=== PATIENT | female | born 1985 | race Caucasian/White ===

== ENCOUNTER → 2020-05-04 15:51 | Outpatient (CLI) | payer OTHER, SELFPAY ==
--- NOTE | ~2020-05-04 | US_ITS ---
EXAMINATION: US thyroid DATE: 05/04/2020 16:19 INDICATION: Nontoxic single thyroid nodule. TECHNIQUE: Multiple ultrasound images of the thyroid were obtained. COMPARISON: Ultrasound 04/21/2018 FINDINGS: The right thyroid lobe measures 3.0 x 1.3 x 1.1 cm. The left thyroid lobe measures 3.3 x 1.3 x 0.7 c m. There is normal echotexture and echogenicity throughout the thyroid gland. No discrete nodules id entified. Normal vascular flow is present. IMPRESSION: 1. Normal thyroid. Reviewed, dictated and finalized at location B. RATIVE ENGRAVER IMPRESSION: 1. Normal thyroid.
== END ==
PROVIDERS: PCP Family Medicine
DX: E04.1 Nontoxic single thyroid nodule (principal)
CPT/HCPCS: 76536

== ENCOUNTER 2020-08-30 09:22 | Outpatient (CLI) | payer OTHER, SELFPAY ==
--- NOTE | 2020-08-30 10:00 | NEURO_ITS ---
Impression: # Complains of right elbow pain. # No Carpal Tunnel Syndrome or ulnar neuropathy. # Normal nerve conduction study. # Normal needle/EMG exam. # Clinical correlation recommended. Nerve Conduction Studies Anti Sensory Summary Table Stim Site NR Peak (ms) P-T Amp (?V) Site1 Site2 Delta-P (ms) Dist (cm) Vicente (m/s) Right Median Anti Sensory (2-3nd Digit) Wrist 2.8 34.7 Wrist 2-3nd Digit 2.8 14.0 50 Wrist 2.8 39.3 Wrist 2-3nd Digit 2.8 14.0 50 Right Radial Anti Sensory (Base 1st Digit) Wrist 2.1 26.4 Wrist Base 1st Digit 2.1 0.0 Right Ulnar Anti Sensory (5th Digit) Wrist 2.2 36.2 Wrist 5th Digit 2.2 14.0 64 Motor Summary Table Stim Site NR Onset (ms) O-P Amp (mV) Site1 Site2 Delta-0 (ms) Dist (cm) Vicente (m/s) Right Median Motor (Abd Poll Brev) Wrist 2.8 10.2 Elbow Wrist 4.1 26.0 63 Elbow 6.9 8.3 Right Ulnar Motor (Abd Dig Minimi) Wrist 2.2 6.1 A Elbow Wrist 4.5 28.0 62 A Elbow 6.7 4.5 F Wave Studies NR F-Lat (ms) L-R F-Lat (ms) Right Median (Mrkrs) (Abd Poll Brev) 25.79 Right Ulnar (Mrkrs) (Abd Dig Min) 24.91 EMG Side Muscle Nerve Root Ins Act Fibs Amp Dur Recrt Comment Right 1stDorInt Ulnar C8-T1 Nml Nml Nml Nml Nml Right Ext Indicis Radial (Post Int) C7-8 Nml Nml Nml Nml Nml Right Ext Digitorum Radial (Post Int) C7-8 Nml Nml Nml Nml Nml Right BrachioRad Radial C5-6 Nml Nml Nml Nml Nml Right PronatorTeres Median C6-7 Nml Nml Nml Nml Nml Right Abd Poll Brev Median C8-T1 Nml Nml Nml Nml Nml Right ABD Dig Min Ulnar C8-T1 Nml Nml Nml Nml Nml MTDD
== END 2020-08-30 09:23 | disposition home or self-care (01) ==
PROVIDERS: PCP Physician Assistant; Visit Provider Physician Assistant
DX: G56.01 Carpal tunnel syndrome, right upper limb (principal)
CPT/HCPCS: 95886; 95909

== ENCOUNTER → 2022-12-18 08:38 | Outpatient (CLI) | payer OTHER, SELFPAY ==
--- NOTE | ~2022-12-18 | US_ITS ---
Limited Abdominal Sonogram: Real-time sonographic imaging of the right upper quadrant was performed. Clinical History: Abnormal liver enzymes Findings: The liver appears mildly echogenic/heterogeneous, with no evidence of mass lesion or bile duct dilatation. Liver contour is mildly nodular. Main portal vein demonstrates normal direction of f low. The gallbladder is well distended, and appears normal with no evidence of gallstone or wall thic kening. The common bile duct measures 4 mm. The visualized pancreas, aorta, and IVC are unremarkable . Impression: Heterogeneous hepatic echo texture with mildly nodular contour. Findings suggest cirrhotic change alejandro olga fatty infiltration. Correlate clinically. Reviewed, dictated and finalized at location . Impression: Heterogeneous hepatic echo texture with mildly nodular contour. Findings sugges t cirrhotic change versus fatty infiltration. Correlate clinically.
== END ==
PROVIDERS: PCP Family Medicine; Visit Provider Internal Medicine Endocrinology, Diabetes & Metabolism
DX: R74.01 Elevation of levels of liver transaminase levels (principal)
CPT/HCPCS: 76705

== ENCOUNTER 2023-06-16 07:41 | Outpatient (CLI) | payer OTHER, SELFPAY ==
--- NOTE | ~2023-06-16 | CT_ITS ---
CT of the Abdomen and Pelvis: Indication: Abnormal findings on diagnostic imaging of the liver and biliary tract Technique: 2.5 mm axial scans were obtained through the abdomen and pelvis following intravenous adm inistration of 100 cc of Omnipaque 350. Dose reduction technique was used on this scan by utilizing a utomated exposure control and iterative reconstruction technique. The dose-length product (DLP) was 1 100.43 mGy-cm. Findings: Scans through the lung bases are unremarkable. There is diffuse fatty infiltration of liver. The spleen, pancreas, gallbladder, adrenals and kidneys are within normal limits. No evidence of aortic aneurysm. No lymphadenopathy. No bowel obstruction or bowel wall thickening. There is no evidence to suggest acute appendicitis. Sm all fat-containing umbilical hernia noted. Images through the pelvis were performed. Urinary bladder unremarkable. IUD in place. No adnexal mass evident. No ascites. Impression: Diffuse fatty infiltration of the liver. IUD in place. Reviewed, dictated and finalized at [facility]. N SERVICE WORKER Impression: Diffuse fatty infiltration of the liver. IUD in place.
== END 2023-06-16 07:42 | disposition home or self-care (01) ==
PROVIDERS: PCP Family Medicine; Visit Provider Physician Assistant
DX: K76.0 Fatty (change of) liver, not elsewhere classified (principal)
CPT/HCPCS: 74177; Q9967

== ENCOUNTER 2023-07-17 12:47 | Emergency (ER) | payer OTHER, SELFPAY ==
[2023-07-17 13:03] VITALS: BP 130/87; PULSE 127; RESP 18; TEMP 38; O2SAT 100
--- NOTE | 2023-07-17 13:04 | ED.URI ---
HPI - URI/Sore Throat General Chief Complaint: Upper Respiratory Infection Stated Complaint: lower back pain, sorethroat Time Seen by Provider: 07/17/23 12:55 Source: patient Mode of arrival: ambulatory Limitations: no limitations History of Present Illness HPI Narrative: Patient is a 38-year-old female who presents with right low back pain radiating to buttocks that started yesterday. States she has old soccer injuries that flare up causing pain. Patient has been taking her muscle relaxer, Tylenol and ibuprofen with no relief. Patient was recently on steroids and Augmentin a week ago. Patient states they normally give her steroid injection but can not get in to PCP office till Friday. Patient states today she woke up with fever and scratchy throat. Patient states last injection was over year ago and is not into spine but into buttocks. Patient had abdominal CT the end of May along with HIDA scan for gallbladder issues. Related Data Home Medications Medication Instructions Recorded Confirmed levonorgestrel 21 mcg/24 hours (8 1 device intrauterine ONCE 05/21/22 07/17/23 yrs) 52 mg intrauterine device (Mirena) levothyroxine 100 mcg tablet 100 mcg PO DAILY 05/23/23 07/17/23 (Synthroid) cyclobenzaprine 10 mg tablet 10 mg PO BID muscle spasm 07/17/23 07/17/23 eletriptan 40 mg tablet mg 07/17/23 Allergies Allergy/AdvReac Type Severity Reaction Status Date / Time azithromycin AdvReac Severe Abdominal Verified 07/17/23 14:40 Pain Review of Systems Review of Systems: All systems reviewed & are unremarkable except as noted in HPI and below Constitutional: Constitutional: Denies body ache(s), Denies chills, Denies fatigue, Reports fever(s), Denies headache(s), Denies malaise and Denies weakness Eyes: Eyes: Denies blurry vision, Denies itchy eyes and Denies loss of vision ENT: Denies otalgia, Denies headache(s), Denies nasal congestion, Denies sinus pain and Reports sore throat Cardiovascular: Cardiovascular: Denies chest pain, Denies irregular heart rhythm and Denies dyspnea Respiratory: Respiratory: Denies cough and Denies dyspnea Gastrointestinal: Gastrointestinal: Denies abdominal pain, Denies diarrhea, Denies nausea and Denies vomiting Musculoskeletal: Musculoskeletal: Reports back pain, Denies myalgias and Denies arthralgias Integumentary/Breasts: Skin/Breast: Denies pruritus and Denies rash Neurologic: Denies headache(s), Denies loss of vision and Denies weakness Psychiatric: Psychiatric: Reports no additional psychiatric complaints Endocrine: Endocrine: Denies fatigue Allergic/Immunologic: Allergic/Immunologic: Denies itchy eyes PMFSH Past Medical History Medical History Allergic rhinitis Alopecia KELLI (generalized anxiety disorder) Headache Hyperlipidemia Hypothyroidism determined by thyroid function test Migraines Surgical History Surgical History H/O lateral meniscus repair of left knee History of ankle surgery Family History Family History Other Diabetes mellitus Family history of thyroid disease Social History Social History Smoking status: Never smoker Second hand tobacco smoke exposure: No Alcohol intake: current Alcohol use details: socially; twice monthly Substance use: never Substance use type: does not use Lack of Transportation: No Lack of Food: Never True Current Housing: I Have Housing Concerned About Future Housing: No Difficulty Paying Gas/Electric Bills: No Difficulty Paying for Meds: No Currently Unemployed: No Education: Master's Degree or Higher Difficulty w/ Childcare or Family Care: No Living arrangements: with family Occupation/Education: occupation Additional occu
[2023-07-17 13:07] VITALS: BP 130/87; PULSE 127; RESP 18; TEMP 38; O2SAT 100
== END 2023-07-17 14:25 | disposition short-term general hospital (02) ==
PROVIDERS: Emergency Provider Nurse Practitioner Family; PCP Family Medicine
DX: R00.0 Tachycardia, unspecified (principal); M54.41 Lumbago with sciatica, right side; R50.9 Fever, unspecified; E78.5 Hyperlipidemia, unspecified; E03.9 Hypothyroidism, unspecified; Z79.899 Other long term (current) drug therapy; Z20.822 Contact with and (suspected) exposure to COVID-19
CPT/HCPCS: 81003; 87081; 87086; 87426; 87804; 87880; 99213; G0463

== ENCOUNTER 2023-07-17 14:39 | Emergency (ER) | payer OTHER, SELFPAY ==
[2023-07-17] VITALS (9 sets, daily range): BP systolic 111–128; BP diastolic 73–84; PULSE 97–132; RESP 12–20; TEMP 37.7; O2SAT 97–100
--- NOTE | ~2023-07-17 | XR_ITS ---
EXAMINATION: XR chest 2V DATE: 07/17/2023 16:40 INDICATION: Shortness of breath TECHNIQUE: PA and lateral views of the chest are obtained. COMPARISON: None available FINDINGS: The lungs are free of acute opacities. No pleural effusion or pneumothorax. The cardiomedia stinal silhouette is normal. There is mild thoracic spondylosis. IMPRESSION: 1. No acute cardiopulmonary abnormality. Reviewed, dictated and finalized at location L. ITY IMPROVEMENT COORDINATOR
[2023-07-17 16:20] LABS: Appearance Urine Clear (Clear); Bacteria Urine None Seen /hpf; Bilirubin Urine Negative (Negative); Blood Urine Negative (Negative); Color Urine Yellow (Yellow); Glucose Urine UA Negative (Negative); Ketones Urine Negative (Negative); Leukocyte Esterase Ur 1+ LEU/UL (Negative); Need Manual Microscopic Reviewed; Nitrate Urine Negative (Negative); Non Pathogenic Casts 0-2; Protein Urine Negative (Negative); RBC Urine 0-2 /hpf (0-2); Specific Grav Ur 1.003 (1.001-1.035); Squamous Epithelial Cell Urine Occasional /hpf (Few); Urobilinogen Urine 0.2 mg/dL (<2.0); pH Urine 6.5 (5.0-9.0)
[2023-07-17 16:28] LABS: Basophils Percent Auto 0.4 % (0.2-1.2); Eosinophils Percent Auto 0.6 % (0-4.4); Hemoglobin 14.3 g/dL (12.0-15.0); Immature Granulocyte Absolute 0.05 K/mm3 (0.00-0.031); Immature Granulocyte Percent A 0.7 % (0-0.5); Lymphocytes Absolute Auto 0.48 K/mm3 (0.9-3.2); Lymphocytes Percent Auto 7.2 % (18.3-44.2); Mean Corpuscular HGB Conc 32.5 g/dl (32-36); Mean Corpuscular Volume 89.2 fl (80-100); Mean Platelet Volume 10.5 fl (7.4-10.4); Monocytes Absolute Auto 0.9 K/mm3 (0.1-0.6); Monocytes Percent Auto 13.9 % (2.6-8.5); Neutrophils Absolute Auto 5.2 K/mm3 (1.3-6.7); Neutrophils Percent Auto 77.2 % (45.5-73.1); Platelet Count Result 307 k/mm3 (150-375); Red Blood Count 4.93 M/mm3 (4.2-5.4); Red Cell Distribution Width 13.9 % (11.5-14.5); White Blood Count 6.7 K/mm3 (4.5-10.0)
[2023-07-17] MEDS: ACETAMINOPHEN 500 MG TABLET 1000 MG PO (16:29)
[2023-07-17] MEDS: MORPHINE SULFATE (*CRX) 4 MG/ML INJ IV PUSH (16:29)
[2023-07-17 16:32] LABS: Add Urine Microscopic? YES
[2023-07-17 16:36] LABS: Lactic Acid Reflex 1.1 mmol/L (0.7-2.0)
[2023-07-17 16:39] LABS: Alanine Aminotransferase 46 U/L (6-35); Albumin Level 4.8 g/dL (3.5-5.1); Alkaline Phosphatase 67 U/L (38-126); Anion Gap 10 mmol/L (8-16); Aspartate Amino Transferase 38 U/L (14-36); Bilirubin,Total 0.6 mg/dL (0.2-1.3); Blood Urea Nitrogen 7 mg/dL (7-17); Calcium 9.6 mg/dL (8.4-10.2); Carbon Dioxide 23 mmol/L (22-30); Chloride 102 mmol/L (98-107); Estimated CRCL calculation 94 ml/min; Estimated Glomerular Filt Rate > 60; Glucose 90 mg/dL (65-110); Potassium 3.6 mmol/L (3.4-5.0); Sodium 135 mmol/L (137-145)
[2023-07-17 16:43] LABS: INR 0.9; Partial Thromboplastin Time 24.5 SECONDS (22.3-36.8); Prothrombin Time 12.3 Seconds (11.1-14.7)
--- NOTE | 2023-07-17 16:59 | ED.GENADULT ---
HPI - General Adult General Chief complaint: Fever Stated complaint: back pain, temperature Time Seen by Provider: 07/17/23 15:54 History of Present Illness HPI narrative: Patient is a 38-year-old female who presents ER with back pain and fever. Back pain ongoing over last couple of days. Has history of an old injury from when she played soccer where she has an irritated disc that will occasionally cause pain. This has been increasing discomfort last couple days. Today she started having fevers. She had a rapid COVID and flu test performed urgent care but it was negative. Due to her fever back pain she was referred here for more definitive workup. Patient has known gallbladder issues with an EF of 17%. She has mild abdominal discomfort. No urinary frequency urgency or dysuria. No pain in the right upper quadrant this time. No pain with eating or drinking. Related Data Home Medications Medication Instructions Recorded Confirmed levonorgestrel 21 mcg/24 hours (8 1 device intrauterine ONCE 05/21/22 07/17/23 yrs) 52 mg intrauterine device (Mirena) levothyroxine 100 mcg tablet 100 mcg PO DAILY 05/23/23 07/17/23 (Synthroid) cyclobenzaprine 10 mg tablet 10 mg PO BID muscle spasm 07/17/23 07/17/23 eletriptan 40 mg tablet mg 07/17/23 Allergies Allergy/AdvReac Type Severity Reaction Status Date / Time azithromycin AdvReac Severe Abdominal Verified 07/17/23 14:40 Pain Review of Systems Review of Systems: All systems reviewed & are unremarkable except as noted in HPI and below Constitutional: Constitutional: Denies chills, Reports fatigue and Reports fever(s) ENT: Denies nasal congestion and Reports sore throat Cardiovascular: Cardiovascular: Reports no additional cardiovascular complaints Respiratory: Respiratory: Reports cough and Denies dyspnea Gastrointestinal: Gastrointestinal: Reports no additional gastrointestinal complaints Musculoskeletal: Musculoskeletal: Reports back pain, Denies arthralgias and Denies joint swelling Neurologic: Reports system reviewed and no additional complaints, except as documented PMF Past Medical History Medical History Allergic rhinitis Alopecia KELLI (generalized anxiety disorder) Headache Hyperlipidemia Hypothyroidism determined by thyroid function test Migraines Surgical History Surgical History H/O lateral meniscus repair of left knee History of ankle surgery Family History Family History Other Diabetes mellitus Family history of thyroid disease Social History Social History Smoking status: Never smoker Second hand tobacco smoke exposure: No Alcohol intake: current Alcohol use details: socially; twice monthly Substance use: never Substance use type: does not use Lack of Transportation: No Lack of Food: Never True Current Housing: I Have Housing Concerned About Future Housing: No Difficulty Paying Gas/Electric Bills: No Difficulty Paying for Meds: No Currently Unemployed: No Education: Master's Degree or Higher Difficulty w/ Childcare or Family Care: No Living arrangements: with family Occupation/Education: occupation Additional occupation/education comments: school guard Gender identity (if verbalized by the patient): Female Exam Narrative: GENERAL: Well-appearing, well-nourished, and in no acute distress. HEAD: Normocephalic, atraumatic. ENT: Mucous membranes moist. CHEST: Clear to auscultation. No respiratory distress. HEART: Tachycardic and regular. Normal peripheral pulses. ABDOMEN: Soft, nontender, nondistended. BACK: No midline tenderness of the T/L-spine. There is right-sided paraspinal muscle tenderness in the lumbar region 1
[2023-07-17] MEDS: ONDANSETRON INJ 4 MG/2 ML VIAL IV PUSH (17:02)
[2023-07-17 17:42] LABS: Influenza A QL RT-PCR Positive (Negative); Influenza B QL RT-PCR Negative (Negative); RSV RNA, RT-PCR Negative (Negative); SARS-CoV-2 RNA PCR Negative (Negative)
[2023-07-17] MEDS: KETOROLAC 30 MG/ML VIAL (*BKC) IV PUSH (18:26)
== END 2023-07-17 18:35 | disposition home or self-care (01) ==
PROVIDERS: Emergency Provider Emergency Medicine; PCP Family Medicine
DX: J10.1 Influenza due to other identified influenza virus with other respiratory manifestations (principal); Z20.822 Contact with and (suspected) exposure to COVID-19; E78.5 Hyperlipidemia, unspecified; E03.9 Hypothyroidism, unspecified; F41.1 Generalized anxiety disorder; Z97.5 Presence of (intrauterine) contraceptive device; Z79.85 Long-term (current) use of injectable non-insulin antidiabetic drugs
CPT/HCPCS: 36415; 71046; 80053; 81001; 81003; 83605; 85025; 85610; 85730; 87081; 87086; 87426; 87637; 87804; 87880; 96361; 96374; 96375; 99284; A9270; J1885; J2270; J2405; J7030

== ENCOUNTER 2024-02-27 14:36 | Outpatient (CLI) | payer OTHER, SELFPAY ==
--- NOTE | ~2024-02-27 | MR_ITS ---
EXAMINATION: MR foot LT wo con DATE: 02/27/2024 15:12 INDICATION: Left ankle pain. Spontaneous rupture flexor tendons. TECHNIQUE: Magnetic resonance imaging (MRI) of the left mid and hindfoot and ankle was performed with out intravenous contrast. Sequences included sagittal, coronal, and axial proton-density weighted fas t spin echo without and with fat saturation. COMPARISON: None. FINDINGS: Medial ankle ligaments: Deep and superficial deltoid ligaments as well as the spring ligament are normal. Lateral ankle ligaments: The anterior and posterior inferior tibiofibular ligaments are normal. There is scarring consistent w ith chronic sprain of the anterior talofibular and calcaneofibular ligaments which appears thickened with mild increased signal. The posterior talofibular ligament is normal. Tendons: Mild tendinosis of the distalmost Achilles tendon with small enthesopathic ossicle at its calcaneal i nsertion. No tendon tear. The peroneus longus and brevis tendons are normal. The tibialis anterior an d extensor hallucis longus and extensor digitorum longus tendons are normal. The tibialis posterior, flexor digitorum longus and flexor hallucis longus tendons are normal. Plantar fascia: Plantar aponeurosis is normal. Bones/other: Bone alignment is normal. Normal bone marrow signal throughout with no reactive edema, fracture or pa thologic marrow replacing process. Fluid: Physiologic amount fluid in the joint spaces. No abnormal fluid collections. IMPRESSION: 1. Mild Achilles enthesopathy without tear with mild tendinosis and small enthesopathic ossicles at t he distalmost tendon. 2. Chronic lateral ankle sprain with scarring of the anterior talofibular and calcaneofibular ligamen ts. Reviewed, dictated and finalized at location A. IMPRESSION: 1. Mild Achilles enthesopathy without tear with mild tendinosis and small enthe sopathic ossicles at the distalmost tendon. 2. Chronic lateral ankle sprain with scarring of the anterior talofibular and c alcaneofibular ligaments.
== END 2024-02-27 14:37 | disposition home or self-care (01) ==
LOC: GOSHIMG 14:37
PROVIDERS: PCP Podiatrist Foot & Ankle Surgery; Visit Provider Podiatrist Foot & Ankle Surgery
DX: M66.372 Spontaneous rupture of flexor tendons, left ankle and foot (principal); M77.32 Calcaneal spur, left foot; S93.492A Sprain of other ligament of left ankle, initial encounter; X58.XXXA Exposure to other specified factors, initial encounter
CPT/HCPCS: 73718

== ENCOUNTER 2025-03-24 09:10 | Outpatient (CLI) | payer OTHER, SELFPAY ==
--- OUTSIDE RECORDS SUMMARY | 2023-05-01 06:32 | XMS_ITS | Continuity of Care Document ---
Author Organization [facility] Address [address] [place] [address] Phone Care Team Providers Care Abrasive Worker Name Role Phone Broderick Wharton DO Unavailable Unavailable Allergies, Adverse Reactions, Alerts Substance Reaction Status Criticality No Known Allergies Active No Inform ation Medications Medication Instructions Dosage Effective Dates (start - stop) Status Comments Synthroid 100 mcg tablet take 1 tablet by oral route every day 100 MCG - Active rosuvastatin 20 mg tablet take 1 tablet by oral route every day 20 MG - Active Effexor XR 75 mg capsule,extended release take 1 capsule by oral route every day with food 75 MG - Active Olumiant 4 mg tablet take 1 tablet by or al route every day 4 MG - Active Procedures Procedure Date CARPAL TUNNEL SURGERY POSTOP FOLLOW-UP VISIT CARPAL TUNNEL SURGERY OFFICE/OUTPATIENT VISIT [facility] Wrist Long and Short Splint OFFICE/OUTPATIENT VISIT [facility] Advance Directives Directive Yes / No Effective Date File Name No Information Encounters Encounter Description Practice Location Reason(s) For Visit Diagnoses Date Provider Providers Copied on Encounter [facility] , [address], [place], [address], [place] [phone] [facility] Carpal tunnel syndrome, left upper limb 3 Dio Villafana. [address], [place], [place], [id number] . tel: [phone] [facility] , [address], [place], [address], [place] tel:[phone] [facility] Carpal tunnel syndrome, left 3 Dio Villafana. [address], [place], [place], [address] . tel: [phone] [facility] , [address], [place], [address], [place] tel:[phone] [facility] Carpal tunnel syndrome, left 3 Wharton Broderick. [address], [place], [place], [address] . tel: [phone] [facility] , [address], [place], [address], [place] tel:[phone] [facility] S/P carpal tunnel release 3 Kirstin Knight. [address], [place], [place], [address] , [place]. tel: [phone] Referring Provider: Shellie Packer, [facility] [place], [address] . tel:[phone] [facility] , [address], [place], [address], [place] tel:[phone] [facility] Carpal tunnel syndrome, right upper limb 3 Dio Villafana. [address], [place], [place], [address] . tel: [phone] [facility] , [address], [place], [address], [place] tel:[phone] [facility] Right carpal tunnel syndrome 3 Dio Villafana. [address], [place], [place], [address] . tel: [phone] OFFICE/OUTPAT IENT VISIT EST [facility] , [address], [place], [address], [place] tel:[phone] [facility] Right carpal tunnel syndrome 3 Kirstin Knight. [address], [place], [place], [address] , . tel:[phone] Referring Provider: Shellie Packer [facility] [place], [address] . tel:[phone] [facility] , [address], [place], [address], [place] tel:[phone] [facility] Carpal tunnel syndrome, leftRight carpal tunnel syndrome 3 Knetzer Antonia. [address], [place], [place], [address] , [place]. tel:[phone] OFFICE/OUTPAT IENT VISIT NEW [facility] , [address], [place], [address], [place] tel:[phone] [facility] Right carpal tunnel syndromeBody mass index [BMI] 36.0-36.9, adult 3 Knetzer Antonia. [address], [place], [place], [address] , [place]. tel:[phone] Referring Provider: Shellie Packer, [facility] [place], [address] . tel:[phone] Family History Family Member Type Diagnosis Age At Onset No Information Payers Payer name Insurance type Covered democrat ID Authoroctavioa nikky(s) [facility] Choice/Choice Plus [id number] Social History Type Description Quantity Date Captured Comments Sex Female Smoking Status No Information Chief Complaint And Reason For Visit No Information Reason For Referral Reason For Referral No Information Plan Of Treatment Date Type Action Status Referral Ordered: MUSC TEST DONE W/N TEST COMP (EMG/NCS) LT arm ordered Referral Ordered: MUSC TEST DONE W/N TEST COMP (EMG/NCS) RT arm ordered History Of Present Illness Encounter Date Complaint History Of Prese nt Illness No Information Functional Status Date Functional Assessmen t No Information Instructions Date Instruction Additional Infor mation Exercise promotion: stretching R elated to Body mass index [BMI] 36.0-36.9, adult Exercise promotion: stretching R elated to Body mass index [BMI] 36.0-36.9, adult Giving encouragement to exercise Related to Body mass index [BMI] 36.0-36.9, adult Assessments Type Assessment Date No Information Patient Care Teams Name Effective Dates (start - stop) Status Members No Information
--- OUTSIDE RECORDS SUMMARY | 2023-12-29 05:00 | XMS_ITS ---
Author Organization [facility] Address [address] [place] [address] Care Team Providers Care Net Software Engineer Name Role Phone Antonia Dumas Primary Care Provider [phone] REASON FOR VISIT Follow up Encounters Encounter Location Date Provider Diagnosis [facility] - Antonia Dumas [address] [place] [address] 12/29/2023 Antonia Dumas Plan Of Treatment No Information Progress Notes * Shaka STRONGhelDOB:1985 ([age] yo F)Acc No.[id number]:12/29/2023 Progress Notes Patient: Lorrie LONDONO Provider: Jakob Dumas MD :1985 A ge:38 Y S ex:Female Date:12/29/2023 Address:[address] [place], [place] [id number] Subjective: * Chief Complaints: * 1 . Follow up. * Medical History: Objective: * Vitals: Assessment: Plan: * Treatment: * Billing Information: * Visit Code: * Procedure Codes: * Electronic signature of Stepan Dumas MD on 03/24/2025 at 09:42 AM CDT Sign off status: Pending * Provider: Jakob Dumas MD Date: 0 12/29/2023 Generated for Tab cuello/Gerson/eTransmitting on: 09:42 AM CDT
--- OUTSIDE RECORDS SUMMARY | 2024-02-27 10:00 | XMS_ITS ---
Author Organization [facility] Address [address] [place] [address] Care Team Providers Care Brain Wave Technician Name Role Phone Antonia Dumas Primary Care Provider REASON FOR VISIT Health Maintenance Encounters Encounter Location Date Provider Diagnosis [facility] - Antonia Dumas [address] [place] [address] 02/27/2024 Antonia Dumas Plan Of Treatment No Information Progress Notes * Shaka STRONGhelDOB:1985 ([age] yo F)Acc No.[id number]:02/27/2024 Progress Notes Patient: Lorrie LONDONO Provider: Jakob Dumas MD :1985 A ge:38 Y S ex:Female Date:02/27/2024 Address:[address] [place], [place] [id number] Subjective: * Chief Complaints: * 1 . Health Maintenance. * Medical History: Objective: * Vitals: Assessment: Plan: * Treatment: * Billing Information: * Visit Code: * Procedure Codes: * Electronic signature of Stepan Dumas MD on 03/24/2025 at 09:42 AM CDT Sign off status: Pending * Provider: Jakob Dumas MD Date: Generated for Tab cuello/Gerson/eTblassmitting on: 09:42 AM CDT
--- OUTSIDE RECORDS SUMMARY | 2024-04-10 16:00 | XMS_ITS ---
Author Organization [facility] Address [address] [address] Care Team Providers Care Metal Precision Machine Assembler Name Role Phone Antonia Dumas Primary Care Provider [phone] Migration, Provider Unavailable Unavailable REASON FOR VISIT Multum To [facility] Conversion Encounter Medications Medication SIG (Take, Route, Frequency, Duration) Notes Start Date End Date Status ALPRAZolam 0.5 MG 1 tab(s) orally twic e daily as needed; Duration: 60 days 03/10/2024 Active Cyanocobalamin 1000 MCG/ML inject 1000 mg subcutaneously once a week; Duration: 90 days 12/01/2023 Active Synthroid 100 MCG 1 tab(s) orally once a day; Duration: 90 days 02/16/2024 Active Synthroid 100 MCG 1 tab(s) orally once a day; Duration: 14 days 02/27/2024 Active busPIRone HCl 15 MG 1 tab(s) orally 2 ti mes a day; Duration: 30 days 03/10/2024 Active Ezetimibe 10 MG ; Duration: 90 Days Active ALPRAZolam 0.5 MG ; Duration: 90 Days Active Synthroid 100 MCG 1 tab(s) orally once a day; Duration: 90 days 12/01/2023 Active Cyanocobalamin 1000 MCG/ML ; Duration: 84 Days Active Aldactone 50 MG 2 tablets orally onc e daily; Duration: 90 days 12/01/2023 Active Effexor XR 75 MG 1 cap(s) orally once a day; Duration: 30 days 07/10/2023 Active Ozempic (2 MG/DOSE) 8 MG/3ML ; Duration: 84 Days Not-Taki ng Litfulo 50 MG ; Duration: 28 Days Active Ondansetron HCl 4 MG 1 tab(s) orally twi ce daily as needed for nausea; Duration: 90 days 01/29/2024 Active dexAMETHasone 1 MG 1 tab(s) orally once at 10 pm night before 8 am cortisol; Duration: 1 days 01/29/2024 Active Effexor XR 37.5 MG 1 cap(s) orally once a day; Duration: 60 days 01/29/2024 Active busPIRone HCl 10 MG 1 tab(s) orally 2 ti mes a day; Duration: 90 days 01/29/2024 Active Zepbound 2.5 MG/0.5ML inject 2.5 mg subcutaneously once a week; Duration: 30 days 01/29/2024 Active Encounters Encounter Location Date Provider Diagnosis [facility] [address] [place], [place] [address] [address] 04/10/2024 Provider Migration Hypothyroidism, unspecified E03.9 ; Obesity, unspecified E66.9 ; Generalized anxiety disorder F41.1 and Nausea R11.0 Assessments Encounter Date Diagnosis (ICD Code) Assessment Notes Treatment Notes Treatment Clinical Notes Section Notes 04/10/2024 Hypothyroidism, unspecified (ICD-10 - E03.9) 04/10/2024 Obesity, unspecified (ICD-10 - E66.9) 04/10/2024 Generalized anxiety disorder (ICD-10 - F41.1) 04/10/2024 Nausea (ICD-10 - R11.0) Plan Of Treatment Medication Medication Name Sig Start Date Stop Date Notes ALPRAZolam 0.5 MG 1 tab(s) orally twic e daily as needed; Duration: 60 days 03/10/2024 Synthroid 100 MCG 1 tab(s) orally once a day; Duration: 90 days 02/16/2024 Synthroid 100 MCG 1 tab(s) orally once a day; Duration: 14 days 02/27/2024 busPIRone HCl 15 MG 1 tab(s) orally 2 ti mes a day; Duration: 30 days 03/10/2024 Ondansetron HCl 4 MG 1 tab(s) orally twi ce daily as needed for nausea; Duration: 90 days 01/29/2024 dexAMETHasone 1 MG 1 tab(s) orally once at 10 pm night before 8 am cortisol; Duration: 1 days 01/29/2024 Effexor XR 37.5 MG 1 cap(s) orally once a day; Duration: 60 days 01/29/2024 busPIRone HCl 10 MG 1 tab(s) orally 2 ti mes a day; Duration: 90 days 01/29/2024 Zepbound 2.5 MG/0.5ML inject 2.5 mg subc utaneously once a week; Duration: 30 days 01/29/2024 Progress Notes * Anna STRONGOB:1985 ([age] yo F)Acc No.[id number]:04/10/2024 Patient: Lorire LONDONO Provider: Teresa Power :1985 A ge:38 Y S ex:Female Date:04/10/2024 Address:[address] [place] [address] Pcp:Antonia Dumas Subjective: * Chief Complaints: * [facility] . [facility] Conversion Encounter. * Medical History: * Medications: T aking Litfulo(Ritlecitinib Tosylate) 50 MG Capsule , Taking Effexor XR(Venlafaxine HCl ER) 75 MG Capsule Extended Release 24 Hour 1 cap(s) orally once a day , Taking Ezetimibe 10 MG Tablet , Taking ALPRAZolam 0.5 MG Tablet , Taking Cyanocobalamin 1000 MCG/ML Solution , Taking Aldactone(Spironolactone) 50 MG Tablet 2 tablets orally once daily , Taking Synthroid(Levothyroxine Sodium) 100 MCG Tablet 1 tab(s) orally once a day , Taking Cyanocobalamin 1000 MCG/ML Solution inject 1000 mg subcutaneously once a week , Not-Taking/PRN Ozempic (2 MG/DOSE)(Semaglutide (2 MG/DOSE)) 8 MG/3ML Solution Pen-injector Objective: * Vitals: Assessment: * Assessment: 1. H ypothyroidism, unspecified - E03.9 (Primary) 2 . O besity, unspecified - E66.9 3 . G eneralized anxiety disorder - F41.1 4 . N ausea - R11.0 Plan: * Treatment: 2. O besity, unspecified Start Zepbound Solution, 2.5 MG/0.5ML, inject 2.5 mg, subcutaneously, once a week, 30 days, 4, Refills 0; S tart dexAMETHasone Tablet, 1 MG, 1 tab(s), orally, once at 10 pm night before 8 am cortisol, 1 days, 1, Refills 1. 3. G eneralized anxiety disorder Start Effexor XR Capsule Extended Release 24 Hour, 37.5 MG, 1 cap(s), orally, once a day, 60 days, 60 Capsule, Refills 0; S tart busPIRone HCl Tablet, 10 MG, 1 tab(s), orally, 2 times a day, 90 days, 180 Tablet, Refills 1; S tart busPIRone HCl Tablet, 15 MG, 1 tab(s), orally, 2 times a day, 30 days, 60, Refills 3; S tart ALPRAZolam Tablet, 0.5 MG, 1 tab(s), orally, twice daily as needed, 60 days, 120, Refills 1. 4. N ausea Start Ondansetron HCl Tablet, 4 MG, 1 tab(s), orally, twice daily as needed for nausea, 90 days, 180, Refills 1. * Billing Information: * Visit Code: * Procedure Codes: * Electronic signature of Prov ider Migration on 03/24/2025 at 09:44 AM CDT Sign off status: Pending * Provider: Teresa madrigal Migration Date: 06/10/2023 Generated for Tab cuello/Gerson/Jia on: 09:44 AM CDT
--- OUTSIDE RECORDS SUMMARY | 2024-04-10 16:00 | XMS_ITS ---
Author Organization [facility] Address [address] [place] [address] Care Team Providers Care Tanbark Laborer Name Role Phone Antonia Dumas Unavailable [phone] Migration, Provider Unavailable Unavailable [facility] VISIT [facility] Encounter Medications Medication SIG (Take, Route, Frequency, Duration) Notes Start Date End Date Status Synthroid 100 MCG Tablet 1 tab(s) orally once a day; Duration: 90 days 12/01/2023 Active Cyanocobalamin 1000 MCG/ML Solution inject 1000 mg subcutaneously once a week; Duration: 90 days 12/01/2023 Active Synthroid 100 MCG Tablet 1 tab(s) orally once a day; Duration: 90 days 02/16/2024 Active Synthroid 100 MCG Tablet 1 tab(s) orally once a day; Duration: 14 days 02/27/2024 Active busPIRone HCl 15 MG Tablet 1 tab(s) orally 2 times a day; Duration: 30 days 03/10/2024 Active Ozempic (2 MG/DOSE) 8 MG/3ML Solution Pen-injector ; Duration: 84 Days Not-Taki ng Ezetimibe 10 MG Tablet ; Duration: 90 Days Active ALPRAZolam 0.5 MG Tablet ; Duration: 90 Days Active Cyanocobalamin 1000 MCG/ML Solution ; Duration: 84 Days Activ e Aldactone 50 MG Tablet 2 tablets orally once daily; Duration: 90 days 12/01/2023 Active busPIRone HCl 10 MG Tablet 1 tab(s) orally 2 times a day; Duration: 90 days 01/29/2024 Active Ondansetron HCl 4 MG Tablet 1 tab(s) orally twice daily as needed for nausea; Duration: 90 days 01/29/2024 Active dexAMETHasone 1 MG Tablet 1 tab(s) orally once at 10 pm night before 8 am cortisol; Duration: 1 days 01/29/2024 Active Litfulo 50 MG Capsule ; Duration: 28 Days Active Effexor XR 75 MG Capsule Extended Release 24 Hour 1 cap(s) orally once a day; Duration: 30 days 07/10/2023 Active ALPRAZolam 0.5 MG Tablet 1 tab(s) orally twice daily as needed; Duration: 60 days 03/10/2024 Active Zepbound 2.5 MG/0.5ML Solution inject 2.5 mg subcutaneously once a week; Duration: 30 days 01/29/2024 Active Effexor XR 37.5 MG Capsule Extended Release 24 Hour 1 cap(s) orally once a day; Duration: 60 days 01/29/2024 Active Encounters Encounter Location Date Provider Diagnosis [address] [id number] 04/10/2024 Provider Migration Hypothyroidism, unspecified E03.9 ; [...] Name Sig Start Date Stop Date Notes Synthroid 100 MCG Tablet 1 tab(s) orally once a day; Duration: 90 days 02/16/2024 Synthroid 100 MCG Tablet 1 tab(s) orally once a day; Duration: 14 days 02/27/2024 busPIRone HCl 15 MG Tablet 1 tab(s) oral ly 2 times a day; Duration: 30 days 03/10/2024 busPIRone HCl 10 MG Tablet 1 tab(s) oral ly 2 times a day; Duration: 90 days 01/29/2024 Ondansetron HCl 4 MG Tablet 1 tab(s) ora lly twice daily as needed for nausea; Duration: 90 days 01/29/2024 dexAMETHasone 1 MG Tablet 1 tab(s) orall y once at 10 pm night before 8 am cortisol; Duration: 1 days 01/29/2024 ALPRAZolam 0.5 MG Tablet 1 tab(s) orally twice daily as needed; Duration: 60 days 03/10/2024 Zepbound 2.5 MG/0.5ML Solution inject 2.5 mg subcutaneously once a week; Duration: 30 days 01/29/2024 Effexor XR 37.5 MG Capsule Extended Release 24 Hour 1 cap(s) orally once a day; Duration: 60 days 01/29/2024 Progress Notes * Anna STRONGOB:1985 ([age] yo F)Acc No.[id number]:04/10/2024 Patient: Lorrie Cevallos Provider: Teresa Power :1985 A ge:38 Y S ex:Female Date:04/10/2024 Address:[address] [place] [address] Subjective: * Chief Complaints: * [facility] Conversion Encounter * Medications: T akingLitfulo 50 MG Capsule Effexor XR 75 MG Capsule Extended Release 24 Hour 1 cap(s) orally once a day Ezetimibe 10 MG Tablet ALPRAZolam 0.5 MG Tablet Cyanocobalamin 1000 MCG/ML Solution Aldactone 50 MG Tablet 2 tablets orally once daily Synthroid 100 MCG Tablet 1 tab(s) orally once a day Cyanocobalamin 1000 MCG/ML Solution inject 1000 mg subcutaneously once a week Taking Litfulo 50 MG Capsule Taking Effexor XR 75 MG Capsule Extended Release 24 Hour 1 cap(s) orally once a day Taking Ezetimibe 10 MG Tablet Taking ALPRAZolam 0.5 MG Tablet Taking Cyanocobalamin 1000 MCG/ML Solution Taking Aldactone 50 MG Tablet 2 tablets orally once daily Taking Synthroid 100 MCG Tablet 1 tab(s) orally once a day Taking Cyanocobalamin 1000 MCG/ML Solution inject 1000 mg subcutaneously once a week Not-TakingOzempic (2 MG/DOSE) 8 MG/3ML Solution Pen-injector Not-Taking Ozempic (2 MG/DOSE) 8 MG/3ML Solution Pen-injector Assessment: * Assessment: 1. H ypothyroidism, unspecified [...] nausea, 90 days, 180, Refills 1. * Electronic signature of Prov ider Migration on 03/24/2025 at 09:44 AM CDT Sign off status: Pending * Provider: Teresa madrigal Migration Date: 06/10/2023 Generated for Tab cuello/Gerson/Jia on: 09:44 AM CDT
--- OUTSIDE RECORDS SUMMARY | 2024-08-02 10:40 | XMS_ITS ---
Author Organization [facility] Address [address] [place], [place] [address] Care Team Providers Care Offshore Wind Turbine Technician Name Role Phone Antonia Dumas [phone] REASON FOR VISIT lab review Encounters Encounter Location Date Provider Diagnosis [facility] Dum[facility] [address] [place] [address] 08/02/2024 Antonia Dumas Plan Of Treatment No Information Progress Notes * Shaka STRONGAsyaOB:1985 ([age] yo F)Acc No.[id number]:08/02/2024 Progress Notes Patient: Lorrie Cevallos Provider: Jakob Dumas MD :1985 A ge:39 Y S ex:Female Date:08/02/2024 Address:[address] [place], [place] [id number] Subjective: * Chief Complaints: * L ab review * Electronic signature of Stepan Dumas MD on 03/24/2025 at 09:43 AM CDT Sign off status: Pending * Provider: Jakob Dumas MD Date: 0 08/02/2024 Generated for Rashardi ng/Fafang/eTransmitting on: 1 09:43 AM CDT
--- OUTSIDE RECORDS SUMMARY | 2024-08-02 10:40 | XMS_ITS ---
Author Organization [facility] Address [address] [place] [address] Care Team Providers Care Farm Management Agent Name Role Phone Antonia Dumas Primary Care Provider REASON FOR VISIT lab review Encounters Encounter Location Date Provider Diagnosis [facility] - Antonia Dumas [address] [place] [address] 08/02/2024 Antonia Dumas Plan Of Treatment No Information Progress Notes * Shaka STRONGhelDOB:1985 ([age] yo F)Acc No.[id number]:08/02/2024 Progress Notes Patient: Lorrie LONDONO Provider: Jakob Dumas MD :1985 A ge:39 Y S ex:Female Date:08/02/2024 Address:[address] [place], [place] [id number] Subjective: * Chief Complaints: * 1 . Lab review. * Medical History: Objective: * Vitals: Assessment: Plan: * Treatment: * Billing Information: * Visit Code: * Procedure Codes: * Electronic signature of Stepan Dumas MD on 03/24/2025 at 09:43 AM CDT Sign off status: Pending * Provider: Jakob Dumas MD Date: 0 08/02/2024 Generated for Tab cuello/Gerson/eTransmitting on: 1 09:43 AM CDT
--- OUTSIDE RECORDS SUMMARY | 2024-10-19 06:20 | XMS_ITS ---
Author Organization [facility] Address [address] [place], [place] [address] Care Team Providers Care Insurance Verification Rep Name Role Phone Antonia Dumas [phone] REASON FOR VISIT lab f/u Medications Medication SIG (Take, Route, Frequency, Duration) Notes Start Date End Date Status Cyanocobalamin 1000 MCG/ML Solution inject 1000 mg subcutaneously once a week; Duration: 90 days 12/01/2023 Active ALPRAZolam 0.5 MG Tablet ; Duration: 90 Days only as needed Active Synthroid 100 MCG Tablet 1 tab(s) orally once a day; Duration: 90 days 12/01/2023 Active Ezetimibe 10 MG Tablet ; Duration: 90 Days Active Spironolactone 50 MG Tablet 2 tablets Orally Once a day; Duration: 90 days one daily 06/03/2024 Active Litfulo 50 MG Capsule ; Duration: 28 Days Active Ondansetron HCl 4 MG Tablet 1 tab(s) orally twice daily as needed for nausea; Duration: 90 days 01/29/2024 Active dexAMETHasone 1 MG Tablet 1 tab(s) orally once at 10 pm night before 8 am cortisol; Duration: days 01/29/2024 Active dexAMETHasone 1 MG Tablet 1 tablet Orally at 10 pm night before 8 am cortisol; Duration: days 08/16/2024 Active Pregabalin 100 MG Capsule 1 capsule Orally Once a day twice daily Active Ergocalciferol 1.25 MG (76240 UT) Capsule 1 capsule Orally weekly; Duration: 90 days 08/16/2024 Active Encounters Encounter Location Date Provider Diagnosis [facility] Dumas [address] [place] [address] 10/19/2024 Antonia Dumas Plan Of Treatment No Information History and Physical Notes * HPI (History of Present Illness) Category Sub-Category Detail Notes Category Not es History of Present Illness 39 yo female calls in today to initiate telehealth visit to discuss progress and management of autoimmune thyroiditis, alopecia, hyperlipidemia, weight management and fatty liver disease. Verbal consent provided by patient to proceed with this visit. This visit was performed in office via provider and patient located in primary care office with real time audio with video. At last visit in July we continued synthroid 100 mcg daily. We introduced zepbound for weight loss and introduced low dose buspar and started weaning off venlafaxine due to ineffectiveness for KELLI, We continued spironolactone 100 mg daily for hair loss. DST completed and cortisol of 1.4 ug/dL Progress Notes * Shaka STRONGAsyaOB:1985 ([age] yo F)Acc No.[id number]:10/19/2024 Progress Notes Patient: Lorrie Cevallos Provider: Jakob Dumas MD :1985 A ge:39 Y S ex:Female Date:10/19/2024 Address:[address] [place] [address] Subjective: * Chief Complaints: * L ab f/u * HPI: H istory of Present Illness: 39 yo female calls in today to initiate telehealth visit to discuss progress and management of a utoimmune thyroiditis, alopecia, hyperlipidemia, weight management and fatty liver disease. Verbal consent provided by patient to proceed with this visit. This visit was performed in office via provider and patient located in primary care office with real time audio with video. At last visit in July we continued synthroid 100 mcg daily. We introduced zepbound for weight loss and introduced low dose buspar and started weaning off venlafaxine due to ineffectiveness for KELLI, We continued spironolactone 100 mg daily for hair loss. DST completed and cortisol of 1.4 ug/dL. * Medications: T akingErgocalciferol 1.25 MG (28286 UT) Capsule 1 capsule Orally weekly dexAMETHasone 1 MG Tablet 1 tablet Orally at 10 pm night before 8 am cortisol Pregabalin 100 MG Capsule 1 capsule Orally Once a day , Notes to Pharmacist: twice dailyOndansetron HCl 4 MG Tablet 1 tab(s) orally twice daily as needed for nausea dexAMETHasone 1 MG Tablet 1 tab(s) orally once at 10 pm night before 8 am cortisol Litfulo 50 MG Capsule Ezetimibe 10 MG Tablet ALPRAZolam 0.5 MG Tablet , Notes to Pharmacist: only as neededSynthroid 100 MCG Tablet 1 tab(s) orally once a day Cyanocobalamin 1000 MCG/ML Solution inject 1000 mg subcutaneously once a week Spironolactone 50 MG Tablet 2 tablets Orally Once a day , Notes to Pharmacist: one dailyTaking Ergocalciferol 1.25 MG (08473 UT) Capsule 1 capsule Orally weekly Taking dexAMETHasone 1 MG Tablet 1 tablet Orally at 10 pm night before 8 am cortisol Taking Pregabalin 100 MG Capsule 1 capsule Orally Once a day , Notes to Pharmacist: twice dailyTaking Ondansetron HCl 4 MG Tablet 1 tab(s) orally twice daily as needed for nausea Taking dexAMETHasone 1 MG Tablet 1 tab(s) orally once at 10 pm night before 8 am cortisol Taking Litfulo 50 MG Capsule Taking Ezetimibe 10 MG Tablet Taking ALPRAZolam 0.5 MG Tablet , Notes to Pharmacist: only as neededTaking Synthroid 100 MCG Tablet 1 tab(s) orally once a day Taking Cyanocobalamin 1000 MCG/ML Solution inject 1000 mg subcutaneously once a week Taking Spironolactone 50 MG Tablet 2 tablets Orally Once a day , Notes to Pharmacist: one daily Objective: * P ast Orders: L ab:.COMPREHENSIVE METABOLIC PANEL (94907) [facility] (Order Date - 09/30/2024) (Collection Date & Time - 09/30/2024 08:16 AM) Value Reference Range GLUCOSE 77 65-99 - mg/dL UREA NITROGEN (BUN) 10 7-25 - mg/dL CREATININE 0.76 0.50-0.97 - mg/dL BUN/CREATININE RATIO SEE NOTE: 6-22 - (calc) SODIUM 139 135-146 - mmol/L POTASSIUM 4.4 3.5-5.3 - mmol/L CHLORIDE 104 98-110 - mmol/L CARBON DIOXIDE 24 20-32 - mmol/L CALCIUM 9.3 8.6-10.2 - mg/dL PROTEIN, TOTAL 6.8 6.1-8.1 - g/dL ALBUMIN 4.5 3.6-5.1 - g/dL GLOBULIN 2.3 1.9-3.7 - g/dL (calc) ALBUMIN/GLOBULIN RATIO 2.0 1.0-2.5 - (calc) BILIRUBIN, TOTAL 0.6 0.2-1.2 - mg/dL ALKALINE PHOSPHATASE 60 31-125 - U/L AST 17 10-30 - U/L ALT 23 6-29 - U/L EGFR 103 > OR = 60 - mL/min/1.73m2 Notes: Antonia Dumas 10/02/2024 06:29:14 PM CDT >discuss at return visit L ab:.CBC (INCLUDES DIFF/PLT) (6399) (Order Date - 09/30/2024) (Collection Date & Time - 09/30/2024 08:16 AM) Value Reference Range WHITE BLOOD CELL COUNT 6.6 3.8-10.8 - Thousand/uL RED BLOOD CELL COUNT 4.86 3.80-5.10 - Million/uL HEMOGLOBIN 14.0 11.7-15.5 - g/dL HEMATOCRIT 44.4 35.0-45.0 - % MCV 91.4 80.0-100.0 - fL MCH 28.8 27.0-33.0 - pg MCHC 31.5 L 32.0-36.0 - g/dL RDW 12.9 11.0-15.0 - % PLATELET COUNT 371 140-400 - Thousand/uL NEUTROPHILS 51.6 - % ABSOLUTE NEUTROPHILS 3406 6465-1006 - cells/u L LYMPHOCYTES 39.1 - % ABSOLUTE LYMPHOCYTES 2581 850-3900 - cells/uL MONOCYTES 6.1 - % ABSOLUTE MONOCYTES 403 200-950 - cells/uL EOSINOPHILS 2.7 - % ABSOLUTE EOSINOPHILS 178 15-500 - cells/uL BASOPHILS 0.5 - % ABSOLUTE BASOPHILS 33 0-200 - cells/uL MPV 10.2 7.5-12.5 - fL Notes: Antonia Dumas 10/02/2024 06:29:14 PM CDT >discuss at return visit L ab:DHEA SULFATE (402) (Order Date - 09/30/2024) (Collection Date & Time - 09/30/2024 08:16 AM) Value Reference Range DHEA SULFATE 54 19-237 - mcg/dL Notes: Antonia Dumas 10/02/2024 06:29:14 PM CDT >discuss at return visit L ab:T4, FREE (866) (Order Date - 09/30/2024) (Collection Date & Time - 09/30/2024 08:16 AM) Value Reference Range T4, FREE 1.7 0.8-1.8 - ng/dL Notes: Antonia Dumas 10/02/2024 06:29:14 PM CDT >discuss at return visit L ab:TSH (899) (Order Date - 09/30/2024) (Collection Date & Time - 09/30/2024 08:16 AM) Value Reference Range TSH 4.30 - mIU/L Notes: Antonia Dumas 10/02/2024 06:29:14 PM CDT >discuss at return visit L ab:T3, FREE ([id number]) (Order Date - 09/30/2024) (Collection Date & Time - 09/30/2024 08:16 AM) Value Reference Range T3, FREE 3.5 2.3-4.2 - pg/mL Notes: Antonia Dumas 10/02/2024 06:29:14 PM CDT >discuss at return visit L ab:ACTH, PLASMA (211) (Order Date - 09/30/2024) (Collection Date & Time - 09/30/2024 08:16 AM) Value Reference Range ACTH, PLASMA 10 6-50 - pg/mL Notes: Antonia Dumas 10/02/2024 06:29:14 PM CDT >discuss at return visit L ab:CORTISOL, TOTAL (367) (Order Date - 09/01/2024) (Collection Date & Time - 09/01/2024 07:45 AM) Value Reference Range CORTISOL, TOTAL 1.4 L - mcg/dL Notes: Antonia Dumas 09/05/2024 06:03:56 PM CDT >DST not positive but borderline discuss at return L ab:DEXAMETHASONE ([id number]) (Order Date - 09/01/2024) (Collection Date & Time - 09/01/2024 07:45 AM) Value Reference Range DEXAMETHASONE 448 - ng/dL Notes: Antonia Dumas 09/05/2024 06:03:56 PM CDT >DST not positive but borderline discuss at return Antonia Dumas 09/13/2024 11:14:00 PM CDT >dexa in range Billing Information: * Procedure Codes: * Electronic signature of Stepan Dumas MD on 03/24/2025 at 09:43 AM CDT Sign off status: Pending * Provider: Jakob Dumas MD Date: 0 10/19/2024 Generated for Tab cuello/Gerson/Jia on: 1 09:43 AM CDT
--- OUTSIDE RECORDS SUMMARY | 2024-10-21 06:40 | XMS_ITS ---
Author Organization [facility] Address [address] [place], [place] [address] Care Team Providers Care Interior Systems Carpenter Name Role Phone Antonia Dumas [phone] REASON FOR VISIT lab f/u Encounters Encounter Location Date Provider Diagnosis [facility] Dumas [address] [place] [address] 10/21/2024 Antonia Dumas Plan Of Treatment No Information Progress Notes * Shaka STRONGAsyaOB:1985 ([age] yo F)Acc No.[id number]:10/21/2024 Progress Notes Patient: Lorrie Cevallos Provider: Jakob Dumas MD :1985 A ge:39 Y S ex:Female Date:10/21/2024 Address:[address] [place], [place] [id number] Subjective: * Chief Complaints: * L ab f/u * Electronic signature of Stepan Dumas MD on 03/24/2025 at 09:43 AM CDT Sign off status: Pending * Provider: Jakob Dumas MD Date: 0 10/21/2024 Generated for Rashardi ng/Fafang/eTransmitting on: 1 09:43 AM CDT
--- OUTSIDE RECORDS SUMMARY | 2025-02-03 03:40 | XMS_ITS ---
Author Organization [facility] Address [address] [place], [place] [address] Care Team Providers Care Belt Brander Name Role Phone Antonia Dumas Unavailable [phone] REASON FOR VISIT follow up Medications Medication SIG (Take, Route, Frequency, Duration) Notes Start Date End Date Status ALPRAZolam 0.5 MG Tablet ; Duration: 90 Days only as needed Active Ezetimibe 10 MG Tablet ; Duration: 90 Days Active Spironolactone 50 MG Tablet 2 tablets Orally Once a day; Duration: 90 days one daily 06/03/2024 Active Cyanocobalamin 1000 MCG/ML Solution inject 1000 mg subcutaneously once a week; Duration: 90 days 12/01/2023 Active Synthroid 100 MCG Tablet 1 tab(s) orally Once a day; Duration: 90 days 12/01/2023 Active Ondansetron HCl 4 MG Tablet 1 tab(s) orally twice daily as needed for nausea; Duration: 90 days 01/29/2024 Active Pregabalin 100 MG Capsule 1 capsule Orally Once a day twice daily Active Litfulo 50 MG Capsule ; Duration: 28 Days Active dexAMETHasone 1 MG Tablet 1 tab(s) orally once at 10 pm night before 8 am cortisol; Duration: 1 days 01/29/2024 Active dexAMETHasone 1 MG Tablet 1 tablet Orally at 10 pm night before 8 am cortisol; Duration: 1 days 08/16/2024 Active Ergocalciferol 1.25 MG (11456 UT) Capsule 1 capsule Orally weekly; Duration: 90 days 08/16/2024 Active Encounters Encounter Location Date Provider Diagnosis [facility] Dumas [address] [place] [address] 02/03/2025 Antonia Dumas Plan Of Treatment No Information History and Physical Notes * HPI (History of Present Illness) Category Sub-Category Detail Notes Category Not es History of Present Illness 39 yo female comes in for follow up in management of autoimmune thyroiditis, alopecia, hyperlipidemia, weight management and fatty liver disease. At last visit in October we continued synthroid 100 mcg daily We sent for CT adrenal as ACTH and DHEAS levels are low DST of 1.4 ug/dL Progress Notes * Shaka STRONGhelDOB:1985 ([age] yo F)Acc No.[id number]:02/03/2025 Progress Notes Patient: Lorrie Cevallos Provider: Jakob Dumas MD :1985 A ge:39 Y S ex:Female Date:02/03/2025 Address:[address] [place] [address] Subjective: * Chief Complaints: * F ollow up * HPI: H istory of Present Illness: 39 yo female comes in for follow up in anagement of a utoimmune thyroiditis, alopecia, hyperlipidemia, weight management and fatty liver disease. At last visit in October we continued synthroid 100 mcg daily We sent for CT adrenal as ACTH and DHEAS levels are low DST of 1.4 ug/dL. * Medications: T akingErgocalciferol 1.25 MG (37047 UT) Capsule 1 capsule Orally weekly dexAMETHasone [...] Tablet , Notes to Pharmacist: only as neededCyanocobalamin 1000 MCG/ML Solution inject 1000 mg subcutaneously once a week Spironolactone 50 MG Tablet 2 tablets Orally Once a day , Notes to Pharmacist: one dailySynthroid 100 MCG Tablet 1 tab(s) orally Once a day Taking Ergocalciferol 1.25 MG (18470 UT) Capsule 1 capsule Orally weekly Taking [...] , Notes to Pharmacist: only as neededTaking Cyanocobalamin 1000 MCG/ML Solution inject 1000 mg subcutaneously once a week Taking Spironolactone 50 MG Tablet 2 tablets Orally Once a day , Notes to Pharmacist: one dailyTaking Synthroid 100 MCG Tablet 1 tab(s) orally Once a day Billing Information: * Procedure Codes: * Electronic signature of Stepan Dumas MD on 03/24/2025 at 09:44 AM CDT Sign off status: Pending * Provider: Jakob Dumas MD Date: 0 02/03/2025 Generated for Tab cuello/Gerson/Jia on: 09:44 AM CDT
--- NOTE | 2025-03-24 09:16 | ECG_ITS ---
Test Date: 2025-03-24 09:27:46 Measurements Intervals [place] Rate: 64 P: 43 CA: 142 QRS: 35 QRSD: 74 T: 58 QT: 380 QTc: 393 Interpretive Statements SINUS RHYTHM POSSIBLE LEFT ATRIAL ENLARGEMENT BORDERLINE ECG No previous ECG available for comparison Electronically Signed On 03-24-2025 09:32:21 CDT by Adam Burns D.O.
--- OUTSIDE RECORDS SUMMARY | 2025-03-24 09:42 | XMS_ITS | Patient Health Record ---
Author Organization [facility] Address [address] [place] [address] Care Team Providers Care Facilities Maintenance Worker Name Role Phone Antonia Dumas Unavailable [phone] Migration, Provider Unavailable Unavailable Allergies No Known Allergies Results Component Value Reference Range Flag Notes .COMPREHENSIVE METABOLIC DOMINGUEZ EL (20759) CMP Reviewed date:07/13/2024 01:33:24 PM Interpretation: Performing Lab:[place], [facility]-[id number] Ian Whittington, FwpubvRS[address] Eva Villa MD Notes/Report: FASTING:YES FASTING: YES GLUCOSE 93 65-99 mg/dL N Fasting reference interval UREA NITROGEN (BUN) 9 7-25 mg/dL N CREATININE 0.74 0.50-0.97 mg/dL N EGFR 106 > OR = 60 mL/min/1.73m2 N BUN/CREATININE RATIO SEE NOTE: 6-22 (calc) Not Reported: BUN and Creatinine are within reference range. SODIUM 136 135-146 mmol/L N POTASSIUM 4.5 3.5-5.3 mmol/L N CHLORIDE 103 98-110 mmol/L N CARBON DIOXIDE 26 20-32 mmol/L N CALCIUM 9.6 8.6-10.2 mg/dL N PROTEIN, TOTAL 6.5 6.1-8.1 g/dL N ALBUMIN 4.4 3.6-5.1 g/dL N GLOBULIN 2.1 1.9-3.7 g/dL (calc) N ALBUMIN/GLOBULIN RATIO 2.1 1.0-2.5 (calc) N BILIRUBIN, TOTAL 0.5 0.2-1.2 mg/dL N ALKALINE PHOSPHATASE 58 31-125 U/L N AST 24 10-30 U/L N ALT 40 6-29 U/L H IRON AND TOTAL IRON BINDING CAPACITY (7573) Reviewed date:07/13/2024 01:33:24 PM Interpretation: Performing Lab:[facility]ia SANCHEZ-Ysxepx31936 Gil DeyaKS[address] Eva Villa MD Notes/Report: FASTING:YES FASTING: YES IRON, TOTAL 81 40-190 mcg/dL N IRON BINDING CAPACITY 366 250-450 mc g/dL (calc) N % SATURATION 22 16-45 % (calc) N .CBC (INCLUDES DIFF/PLT) (63 99) Reviewed date:07/13/2024 01:33:24 PM Interpretation: Performing Lab:[facility]ia SANCHEZ-Dbnwub87243 Gil DeyaKS[address] Eva Villa MD Notes/Report: FASTING:YES FASTING: YES WHITE BLOOD CELL COUNT 7.5 3.8-10.8 Thousand/uL N RED BLOOD CELL COUNT 4.64 3.80-5.10 Million/uL N HEMOGLOBIN 13.7 11.7-15.5 g/dL N HEMATOCRIT 41.9 35.0-45.0 % N MCV 90.3 80.0-100.0 fL N MCH 29.5 27.0-33.0 pg N MCHC 32.7 32.0-36.0 g/dL N For adults, a slight decrease in the calculated MCHC value (in the range of 30 to 32 g/dL) is most likely not clinically significant; however, it should be interpreted with caution in correlation with other red cell parameters and the patient's clinical condition. RDW 12.5 11.0-15.0 % N PLATELET COUNT 398 140-400 Thousand/uL N MPV 10.9 7.5-12.5 fL N ABSOLUTE NEUTROPHILS 3585 5796-2725 cells/uL N ABSOLUTE LYMPHOCYTES 3240 850-3900 cells/uL N ABSOLUTE MONOCYTES 420 200-950 cells/uL N ABSOLUTE EOSINOPHILS 218 15-500 cells/uL N ABSOLUTE BASOPHILS 38 0-200 cells/uL N NEUTROPHILS 47.8 N LYMPHOCYTES 43.2 N MONOCYTES 5.6 N EOSINOPHILS 2.9 N BASOPHILS 0.5 N ACTH, PLASMA (211) Reviewed date:07/15/2024 07:36:34 PM Interpretation: Performing Lab:Siria COULTER/Leena Reyes [id number] [facility] , GgdjahscpXC[address] Aidan Colin M.D.,PhD Notes/Report: FASTING:YES FASTING: YES ACTH, PLASMA 25 6-50 pg/mL Reference range applies only to specimens collected between 7am-10am. .HEMOGLOBIN A1c (496) Reviewed date:07/13/2024 01:33:24 PM Interpretation: Performing Lab:[facility]Washington [facility] HospitalUdpvv[facility]68 [facility] [address] Eva Villa Notes/Report: FASTING:YES FASTING: YES HEMOGLOBIN A1c 5.6 <5.7 % of total Hgb N For the purpose of screening for the presence of diabetes: <5.7% Consistent with the absence of diabetes 5.7-6.4% Consistent with increased risk for diabetes (prediabetes) > or =6.5% Consistent with diabetes This assay result is consistent with a decreased risk of diabetes. Currently, no consensus exists regarding use of hemoglobin A1c for diagnosis of diabetes in children. According to [place] [employer] (ADA) guidelines, hemoglobin A1c <7.0% represents optimal control in non- diabetic patients. Different metrics may apply to specific patient populations. Standards of Medical Care in Diabetes(ADA). DHEA SULFATE (402) Reviewed date:07/13/2024 01:33:24 PM Interpretation: Performing Lab:[facility]ia SANCHEZ-Gijhtu63127Gil BarnettaKS[address] Eva Villa MD Notes/Report: FASTING:YES FASTING: YES DHEA SULFATE 72 19-237 mcg/dL N .VITAMIN B12 (927) Reviewed date:07/13/2024 01:33:24 PM Interpretation: Performing Lab:Siria SANCHEZa1Gil DuranaKS[address] Eva Villa MD Notes/Report: FASTING:YES FASTING: YES VITAMIN B12 343 951-8808 pg/mL N T4, FREE (866) Reviewed date:07/13/2024 01:33:24 PM Interpretation: Performing Lab:Siria SANCHEZ Len[place]aKS[address] Eva Villa MD Notes/Report: FASTING:YES FASTING: YES T4, FREE 1.4 0.8-1.8 ng/dL N CORTISOL, TOTAL (367) Reviewed date:07/13/2024 01:33:24 PM Interpretation: Performing Lab:Siria SANCHEZa10101 Gil DeyaKS[address] Eva Villa MD Notes/Report: FASTING:YES FASTING: YES CORTISOL, TOTAL 21.5 N Reference Range: For 8 a.m.(7-9 a.m.) Specimen: 4.0-22.0 Reference Range: For 4 p.m.(3-5 p.m.) Specimen: 3.0-17.0 * Please interpret above results accordingly * TSH (899) Reviewed date:07/13/2024 01:33:24 PM Interpretation: Performing Lab:Siria SANCHEZa10101 Gil DeyaKS[address] Eva Villa MD Notes/Report: FASTING:YES FASTING: YES TSH 4.45 N Reference Range > or = 20 Years 0.40-4.50 Ranges First trimester 0.26-2.66 Second trimester 0.55-2.73 Third trimester 0.43-2.91 .VITAMIN D,25-OH,TOTAL,IA (1 7393) Reviewed date:07/13/2024 01:33:24 PM Interpretation: Performing Lab:Siria SANCHEZa101Gil BarnettaKS[address] Eva Villa MD Notes/Report: FASTING:YES FASTING: YES VITAMIN D,25-OH,TOTAL,IA 21 30-100 ng/mL L Vitamin D Status 25-OH Vitamin D: Deficiency: <20 ng/mL Insufficiency: 20 - 29 ng/mL Optimal: > or = 30 ng/mL For 25-OH Vitamin D testing on patients on D2-supplementation and patients for whom quantitation of D2 and D3 fractions is required, the [facility]() 25-OH VIT D, (D2,D3), LC/MS/MS is recommended: order code 18745 (patients >2yrs). See Note 1 Note 1 For additional information, please refer to http://education.[employer]/faq/NLB257 (This link is being provided for informational/ educational purposes only.) MAGNESIUM, RBC (623) Reviewed date:07/17/2024 08:45:38 AM Interpretation: Performing Lab:[facility]-JejLhtovd9496 [facility] [address], [address], RxtvsivpyeUD[address] Meche Gonzalez MD,PhD Notes/Report: FASTING:YES FASTING: YES MAGNESIUM, RBC 5.9 4.0-6.4 mg/dL (Note) This test was developed and its analytical performance characteristics have been determined by [employer]. It has not been cleared or approved by the FDA. This assay has been validated pursuant to the CLIA regulations and is used for clinical purposes. F med fusion [address] [facility] [address] [facility] [address] Meche Gonzalez MD, PhD .COMPREHENSIVE METABOLIC DOMINGUEZ EL (87623) [facility] Reviewed date:10/02/2024 06:29:32 PM Interpretation: Performing Lab:DANIEL [facility]-[id number] Ian Whittington, WqxodkUE[address] Eva Villa MD Notes/Report: FASTING:YES COLLECTION KIT GIVEN TO PATIENT. PATIENT ADVISED TO RETURN. URINE VOLUME: 1999 FASTING: YES GLUCOSE 77 65-99 mg/dL N Fasting reference interval UREA NITROGEN (BUN) 10 7-25 mg/dL N CREATININE 0.76 0.50-0.97 mg/dL N EGFR 103 > OR = 60 mL/min/1.73m2 N BUN/CREATININE RATIO SEE NOTE: 6-22 (calc) Not Reported: BUN and Creatinine are within reference range. SODIUM 139 135-146 mmol/L N POTASSIUM 4.4 3.5-5.3 mmol/L N CHLORIDE 104 98-110 mmol/L N CARBON DIOXIDE 24 20-32 mmol/L N CALCIUM 9.3 8.6-10.2 mg/dL N PROTEIN, TOTAL 6.8 6.1-8.1 g/dL N ALBUMIN 4.5 3.6-5.1 g/dL N GLOBULIN 2.3 1.9-3.7 g/dL (calc) N ALBUMIN/GLOBULIN RATIO 2.0 1.0-2.5 (calc) N BILIRUBIN, TOTAL 0.6 0.2-1.2 mg/dL N ALKALINE PHOSPHATASE 60 31-125 U/L N AST 17 10-30 U/L N ALT 23 6-29 U/L N .CBC (INCLUDES DIFF/PLT) (63 99) Reviewed date:10/02/2024 06:29:32 PM Interpretation: Performing Lab:Siria SANCHEZ-Qodekj80550 Johan DeySknprcDX[address] Eva Villa MD Notes/Report: FASTING:YES COLLECTION KIT GIVEN TO PATIENT. PATIENT ADVISED TO RETURN. URINE VOLUME: 1999 FASTING: YES WHITE BLOOD CELL COUNT 6.6 3.8-10.8 Thousand/uL N RED BLOOD CELL COUNT 4.86 3.80-5.10 Million/uL N HEMOGLOBIN 14.0 11.7-15.5 g/dL N HEMATOCRIT 44.4 35.0-45.0 % N MCV 91.4 80.0-100.0 fL N MCH 28.8 27.0-33.0 pg N MCHC 31.5 32.0-36.0 g/dL L For adults, a slight decrease in the calculated MCHC value (in the range of 30 to 32 g/dL) is most likely not clinically significant; however, it should be interpreted with caution in correlation with other red cell parameters and the patient's clinical condition. RDW 12.9 11.0-15.0 % N PLATELET COUNT 371 140-400 Thousand/uL N MPV 10.2 7.5-12.5 fL N ABSOLUTE NEUTROPHILS 3406 6897-0059 cells/uL N ABSOLUTE LYMPHOCYTES 2581 850-3900 cells/uL N ABSOLUTE MONOCYTES 403 200-950 cells/uL N ABSOLUTE EOSINOPHILS 178 15-500 cells/uL N ABSOLUTE BASOPHILS 33 0-200 cells/uL N NEUTROPHILS 51.6 N LYMPHOCYTES 39.1 N MONOCYTES 6.1 N EOSINOPHILS 2.7 N BASOPHILS 0.5 N DHEA SULFATE (402) Reviewed date:10/02/2024 06:29:32 PM Interpretation: Performing Lab:Siria SANCHEZ-Fjphxh20267 Johan DeyAxqmxlZN[address] Eva Villa MD Notes/Report: FASTING:YES COLLECTION KIT GIVEN TO PATIENT. PATIENT ADVISED TO RETURN. URINE VOLUME: 1999 FASTING: YES DHEA SULFATE 54 19-237 mcg/dL N T4, FREE (866) Reviewed date:10/02/2024 06:29:32 PM Interpretation: Performing Lab:Siria SANCHEZ-Dcorve85034 Ian Whittington, SiiujiAW[address] Eva Villa MD Notes/Report: FASTING:YES COLLECTION KIT GIVEN TO PATIENT. PATIENT ADVISED TO RETURN. URINE VOLUME: 1999 FASTING: YES T4, FREE 1.7 0.8-1.8 ng/dL N TSH (899) Reviewed date:10/02/2024 06:29:32 PM Interpretation: Performing Lab:Siria SANCHEZ-Ian Whittington, RgsiqyNI[address] Eva Villa MD Notes/Report: FASTING:YES COLLECTION KIT GIVEN TO PATIENT. PATIENT ADVISED TO RETURN. URINE VOLUME: 1999 FASTING: YES TSH 4.30 N Reference Range > or = 20 Years 0.40-4.50 Ranges First trimester 0.26-2.66 Second trimester 0.55-2.73 Third trimester 0.43-2.91 T3, FREE (94591) Reviewed date:10/02/2024 06:29:32 PM Interpretation: Performing Lab:Siria SANCHEZ-Ckbzip80755Lian Whittington, JavkqfCE[address] Eva Villa MD Notes/Report: FASTING:YES COLLECTION KIT GIVEN TO PATIENT. PATIENT ADVISED TO RETURN. URINE VOLUME: 1999 FASTING: YES T3, FREE 3.5 2.3-4.2 pg/mL N ACTH, PLASMA (211) Reviewed date:10/10/2024 05:26:50 PM Interpretation: Performing Lab:Siria COULTER/Leena Reyes [id number] [facility] , MpknrxdktNS[address] Aidan Colin M.D.,PhD Notes/Report: FASTING:YES COLLECTION KIT GIVEN TO PATIENT. PATIENT ADVISED TO RETURN. URINE VOLUME: 1999 FASTING: YES ACTH, PLASMA 10 6-50 pg/mL Reference range applies only to specimens collected between 7am-10am. CORTISOL, TOTAL (367) Reviewed date:09/05/2024 06:04:07 PM Interpretation: Performing Lab:Siria SANCHEZ-Rcqvnw83782 Ian Whittington, QnsjapQI[address] Eva Villa MD Notes/Report: FASTING:YES FASTING: YES CORTISOL, TOTAL 1.4 L Reference Range: For 8 a.m.(7-9 a.m.) Specimen: 4.0-22.0 Reference Range: For 4 p.m.(3-5 p.m.) Specimen: 3.0-17.0 * Please interpret above results accordingly * DEXAMETHASONE (07392) Reviewed date:09/13/2024 11:14:08 PM Interpretation: Performing Lab:MICHAEL [employer]/[facility],[address] [facility] Iliana Howell MD,PhD,BEN Notes/Report: FASTING:YES FASTING: YES DEXAMETHASONE 448 Reference Ranges for Dexamethasone: Baseline: Less than 20 ng/dL 1 mg dexamethasone overnight: 180-550 ng/dL (8:00-10:00 AM) This test was developed and its analytical performance characteristics have been determined by [employer]. It has not been cleared or approved by the FDA. This assay has been validated pursuant to the CLIA regulations and is used for clinical purposes. CORTISOL, LC/MS, SALIVA, 2 S AMPLES (57947) Reviewed date:11/08/2024 09:13:18 PM Interpretation: Performing Lab:MICHAEL [facility],[address] [facility] Iliana Howell MD,PhD,BEN Notes/Report: SPLIT 09/30/2024 FROM [id number] URINE VOLUME: DRAW DATE 1 10/18/2024 DRAW TIME 1 11:00 PM CORTISOL, SALIVA SAMPLE 1 <0.03 8-10 AM: 0.04-0.56 mcg/dL noon-2 PM: < OR = 0.21 mcg/dL 4-6 PM: < OR = 0.15 mcg/dL 10 PM-1 AM: < OR = 0.09 mcg/dL This test was developed and its analytical performance characteristics have been determined by [employer]. It has not been cleared or approved by the FDA. This assay has been validated pursuant to the CLIA regulations and is used for clinical purposes. DRAW DATE 2 10/19/2024 DRAW TIME 2 2:50 AM CORTISOL, SALIVA SAMPLE 2 <0.03 8-10 AM: 0.04-0.56 mcg/dL noon-2 PM: < OR = 0.21 mcg/dL 4-6 PM: < OR = 0.15 mcg/dL 10 PM-1 AM: < OR = 0.09 mcg/dL This test was developed and its analytical performance characteristics have been determined by [employer]. It has not been cleared or approved by the FDA. This assay has been validated pursuant to the CLIA regulations and is used for clinical purposes. CORTISOL, FREE, 24 HOUR URIN E (45601) Reviewed date:10/31/2024 09:09:14 PM Interpretation: Performing Lab:Siria RODRIGUEZ/Leena [facility],[address] [address] [facility] Center[facility] Iliana Howell MD,PhD,BEN Notes/Report: SPLIT 09/30/2024 FROM [id number] URINE VOLUME: 2000/24 TOTAL VOLUME 2000 CORTISOL, FREE, URINE 16.5 4.0-50.0 mcg/24 h CORTISOL, FREE, URINE 10.3 Reference Range: ADULTS: 3.1-42.3 CREATININE, URINE 1.60 0.50-2.15 g/24 h This test was developed and its analytical performance characteristics have been determined by [employer]. It has not been cleared or approved by the FDA. This assay has been validated pursuant to the CLIA regulations and is used for clinical purposes. Reason For Referral No Information Medications Medication SIG (Take, Route, Frequency, Duration) Notes Start Date End Date Status ALPRAZolam 0.5 MG Tablet ; Duration: 90 Days only as needed Active Ezetimibe 10 MG Tablet ; Duration: 90 Days Active [place] & Syringes 28G 1inch 1mL syring e to inject vitamin b12 once weekly; Duration: 90 days 03/03/2025 Active Spironolactone 50 MG Tablet 2 tablets Orally Once a day; Duration: 90 days one daily 06/03/2024 Active Ondansetron HCl 4 MG Tablet 1 [...] night before 8 am cortisol; Duration: 1 08/16/2024 Active Ergocalciferol 1.25 MG (15177 [place]) Capsule 1 capsule Orally weekly; Duration: 90 08/16/2024 Active Synthroid 100 MCG Tablet 1 tab(s) orally Once a day; Duration: 90 days 12/01/2023 Active Cyanocobalamin 1000 MCG/ML Solution inject 1 mL subcutaneously once a week; Duration: 90 days 12/01/2023 Active Social History Social History Additional Details Category Social Info Options Details Migrated Social History Migrated Social History (Alcohol:):yes (Smoking:):no Problems Problem Type SNOMED Code ICD Code Onset Dates Problem Status W/U Status Risk Notes Problem Hypothyroidism (86888096) Hypothyroidism, unspecified (E03.9) Active confirmed Problem Autoimmune thyroiditis (59636257) Autoimmune thyroiditis (E06.3) Active confirmed Problem Disorder of adrenal gland (93982509) Disorder of adrenal gland, 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) Active confirmed Problem Polycystic ovary syndrome (disorder) (429289734) Polycystic ovarian syndrome (E28.2) Active confirmed Problem Morbid obesity (disorder) (025976151) Morbid (severe) obesity due to excess calories (E66.01) Active confirmed Problem Obesity due to excess calories (952382228) Other obesity due to excess calories (E66.09) Active confirmed Problem Obesity (021332761) Obesity, unspecified (E66.9) Active confirmed Problem Generalized anxiety disorder (19228084) Generalized anxiety disorder (F41.1) Active confirmed Problem Fatty liver (110984447) Fatty (change of) liver, not elsewhere classified (K76.0) Active confirmed Problem Intestinal malabsorption (204004452) Intestinal malabsorption, 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) Active confirmed Problem Alopecia areata (92550212) Alopecia areata, unspecified (L63.9) Active confirmed Problem Insomnia (956186674) Insomnia, unspecified type (G47.00) Active confirmed Problem Vitamin D deficiency (04095374) Vitamin D deficiency (E55.9) Active confirmed Problem Hyperlipidemia (03101914) Hyperlipidemia, unspecified (E78.5) Active confirmed Vital Signs Heart Rate 90 /min 11/08/2024 Respiratory Rate 12 /min 11/08/2024 Height-cm 160.02 cm 11/08/2024 Blood pressure diastolic 72 mm Hg 11/08/2024 Weight-kg 97.07 kg 11/08/2024 Height 63 in 11/08/2024 Blood pressure systolic 124 mm Hg 11/08/2024 Weight 214 lbs 11/08/2024 BMI 37.9 kg/m2 11/08/2024 Encounters Encounter Location Date Provider Diagnosis [address] [id number] 04/10/2024 Provider Migration Hypothyroidism, unspecified E03.9 ; Obesity, unspecified E66.9 ; Generalized anxiety disorder F41.1 and Nausea R11.[address] Dumas [address] [place] [phone] 08/16/2024 Antonia Dumas Hypothyroidism, unspecified E03.9 ; Polycystic ovarian syndrome E28.2 ; Vitamin D deficiency E55.9 ; Generalized anxiety disorder F41.1 and Insomnia, unspecified type G47.[address] Dumas [address] [place] [address] 11/08/2024 Antonia Dumas Hypothyroidism, unspecified E03.9 ; Obesity, unspecified E66.9 ; Polycystic ovarian syndrome E28.2 ; Autoimmune thyroiditis E06.3 and Disorder of adrenal gland, unspecified E27.[address] Dumas [address] [place] [phone] 06/03/[address] Dumas [address] [place] [phone] 06/03/2024 Antonia Dumas Polycystic ovarian syndrome E28.[address] Dumas [address] [place] [phone] 06/07/2024 Antonia Dumas Hypothyroidism, unspecified E03.[address] Dumas [address] [place] [phone] 06/07/[address] Dumas [address] [place] [address] 06/07/2024 Antonia Dumas AMMO [address] [address] 11/08/2024 Antonia Dumas Disorder of adrenal gland, unspecified E27.[address] Dumas [address] [place] [address] 01/12/2025 Antonia Dumas [address] [place] [phone] 01/17/2025 Antonia PRECIADO [address] [address] 01/18/2025 Antonia Dumas Hypothyroidism, unspecified E03.[address] Dumas [address] [place] [phone] 01/31/2025 Antonia Dumas [address] [place] [phone] 03/03/2025 Antonia Dumas Vitamin B12 deficiency anemia, unspecified D51.9 Assessments Encounter Date Diagnosis (ICD Code) Assessment Notes Treatment Notes Treatment Clinical Notes Section Notes 04/10/2024 Hypothyroidism, unspecified (ICD-10 - E03.9) 06/03/2024 Polycystic ovarian syndrome (ICD-10 - E28.2) 06/07/2024 Hypothyroidism, unspecified (ICD-10 - E03.9) 08/16/2024 Hypothyroidism, unspecified (ICD-10 - E03.9) 08/16/2024 Polycystic ovarian syndrome (ICD-10 - E28.2) 11/08/2024 Obesity, unspecified (ICD-10 - E66.9) 01/18/2025 Hypothyroidism, unspecified (ICD-10 - E03.9) 03/03/2025 Vitamin B12 deficiency anemia, unspecified (ICD-10 - D51.9) 11/08/2024 Hypothyroidism, unspecified (ICD-10 - E03.9) 11/08/2024 Disorder of adrenal gland, unspecified (ICD-10 - E27.9) 08/16/2024 Vitamin D deficiency (ICD-10 - E55.9) 11/08/2024 Polycystic ovarian syndrome (ICD-10 - E28.2) 04/10/2024 Obesity, unspecified (ICD-10 - E66.9) 08/16/2024 Generalized anxiety disorder (ICD-10 - F41.1) 11/08/2024 Autoimmune thyroiditis (ICD-10 - E06.3) 11/08/2024 Disorder of adrenal gland, unspecified (ICD-10 - E27.9) 08/16/2024 Insomnia, unspecified type (ICD-10 - G47.00) 04/10/2024 Generalized anxiety disorder (ICD-10 - F41.1) 04/10/2024 Nausea (ICD-10 - R11.0) 08/16/2024 Other Assessment and Plan: 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 Vitamin D Deficiency- Increase vitamin D supplementation to 5000 IU (25 mcg) daily- Alternatively, prescribe ergocalciferol (vitamin D2) weekly- Send prescription to [facility] in [place] 3. Cardiac Symptoms- Refer to cordwainer Dr. Genny Tony in [place] with [facility]- Recommend Holter monitor to check for a-fib or significant PVCs 4. Depression and Anxiety- Continue pregabalin 100 mg twice daily- Continue alprazolam as needed- Monitor efficacy of current regimen 5. Hypothyroidism- Continue Synthroid 100 mcg daily- No immediate need for medication refill 6. Hyperandrogenism- Continue current spironolactone regimen 7. Vitamin B12 Deficiency- Continue current B12 injection regimen Spent 25 minutes preparing to see the patient (ex review of tests/chart), obtaining and / or reviewing separately obtained history, performing a medically appropriate examination and/or evaluation, counseling and educating the patient/family/careg iver, ordering medications, tests, or procedures, referring and communicating with other health foster care therapist, documenting clinical information in the electronic or other health record, independently interpreting results and communicating results to the patient/family/careg iver and care coordinating patient plan. Patient alert and oriented x 4 and aware of discussion noted above and in agreeance to plan in management of PCOS, hypothyroidism, weight management. Due to the nature of telemedicine, the ability to do physical assessment was limited to what can be accomplished by patient directed telehealth visit based on instruction. Those limits are understood by the patient and myself. Impression is based on history, available information, and physical findings accomplished with telehealth visit. Chronic disease/problem list/ medication list reviewed and updated where indicated. Discussed diagnosis, plan including risks, benefits, and options of treatment. Advised to call for new, worsening, or persistent symptoms. Level of patient risk was of moderate complexity due to the documented nature of presentation, the information assessment required and the nature of the development of an evaluation and treatment plan as documented. PMH, FHx, SHx, Surgical Hx, Quality management review carried out and addressed as documented today as part of this visit. Medication list was reviewed and adjusted as indicated. Medication requiring a refill was addressed. Risk and benefits of any new medications were discussed and all questions were answered. 11/08/2024 Other Assessment and Plan: 1. Obesity- Discontinue Ozempic after last injection due to ineffectiveness and side effects- Reassess weight management strategy after completing sleep study and CT scan- Follow-up appointment scheduled in 3-4 weeks 2. 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 Sleep Disturbances- Order home sleep study kit through [employer]- Patient to wear monitoring ring for 13 hours and mail back- Evaluate results to determine presence of sleep apnea or other sleep disorders- If sleep apnea is diagnosed, prioritize treatment before addressing hypercortisolism 4. Anxiety- Continue current anxiety management with Lyrica 5. Hypertension- Continue current hypertension management Spent 25 minutes preparing to see the patient (ex review of tests/chart), obtaining and / or reviewing separately obtained history, performing a medically appropriate examination and/or evaluation, counseling and educating the patient/family/careg iver, ordering medications, tests, or procedures, referring and communicating with other health foster care therapist, documenting clinical information in the electronic or other health record, independently interpreting results and communicating results to the patient/family/careg iver and care coordinating patient plan. Patient alert and oriented x 4 and aware of discussion noted above and in agreeance to plan in management of hypothyroidism, obesity/ PCOS, concern for hypercortisolism and potential for adrenal pathology. Due to the nature of telemedicine, the ability to do physical assessment was limited to what can be accomplished by patient directed telehealth visit based on instruction. Those limits are understood by the patient and myself. Impression is based on history, available information, and physical findings accomplished with telehealth visit. Chronic disease/problem list/ medication list reviewed and updated where indicated. Discussed diagnosis, plan including risks, benefits, and options of treatment. Advised to call for new, worsening, or persistent symptoms. Level of patient risk was of moderate complexity due to the documented nature of presentation, the information assessment required and the nature of the development of an evaluation and treatment plan as documented. PMH, FHx, SHx, Surgical Hx, Quality management review carried out and addressed as documented today as part of this visit. Medication list was reviewed and adjusted as indicated. Medication requiring a refill was addressed. Risk and benefits of any new medications were discussed and all questions were answered. Plan Of Treatment Pending Test Test Name Order Date *CT ABDOMEN W/O CONTRAST 96470 5 *CT ABDOMEN W/O CONTRAST 82272 5 COMPREHENSIVE METABOLIC PANEL 07/10/2023 T3, FREE 07/10/2023 T4, FREE 07/10/2023 TSH 07/10/2023 VITAMIN B12 07/10/2023 -PANCREATIC ELASTASE 3878 07/10/2023 Insurance Providers Payer Name Payer Address Payer Phone Subscriber Number Group Number Insured Name Patient Relationship to Insured Coverage Start Date Coverage End Date [facility] [address] [address] [place] [address] [id number] Lorrie Strong Self - patient is the insured Medical (General) History Medical History History ICD Code Autoimmune thyroiditis E06.3 Hyperlipidemia, unspecified E78.5 Alopecia areata, unspecified L63.9
--- OUTSIDE RECORDS SUMMARY | 2025-03-24 09:43 | XMS_ITS | Patient Health Record ---
Author Organization [facility] [employer] [facility] ([address]) Address [address] [place] [address] Care Team Providers Care Mailer Name Role Phone Shellie Blanco Primary Care Provider UnavailMira Ortega Unavailable [phone] Aidan Flannery Unavailable [phone] Allergies Allergen (clinical drug ingredient) Drug/Non Drug Allergy documented on EMR Reaction Allergy Type Onset Date Status ZPAC (uncoded) GI issues/pain Allergy Active Reason For Referral No Information Medications Medication SIG (Take, Route, Frequency, Duration) Notes Start Date End Date Status ELETRIPTAN 40 MG DIRECTED ORALLY *Please revi ew for potential replacement for e-prescription and drug interaction check* 04/15/2023 Active Montelukast Sodium 10 MG TAKE 1 TABLET BY MOUTH DAILY Orally Once a day; Duration: 90 days needs follow-up Active Synthroid 100 MCG 1 tab(s) orally once a day; Duration: 30 day(s) 04/15/2023 Active FAMOTIDINE 40 mg 1 tab(s) orally 30 mins prior to SCIT; Duration: 30 days Not-Taking NASACORT AQ 55 mcg/inh 2 sprays, each nostril intranasally, avoid nasal septum daily; Duration: 30 days Not-Taking NASACORT AQ 55 mcg/inh 2 sprays, each nostril intranasally, avoid nasal septum daily; Duration: 30 days Active LITFULO 50 mg 1 cap(s) orally once a day 04/15/2023 Not-Taking CETIRIZINE HYDROCHLORIDE 10 mg 1 tab(s) orally once a day Active MONTELUKAST SODIUM 10 mg 1 tab(s) orally once a day; Duration: 90 days Not-Taking EpiPen 2-Jarocho 0.3 MG/0.3ML as directed intramuscularly once; Duration: 1 days Active Cetirizine HCl 10 MG 1 tab(s) orally once a day Active B-12 1000 MCG 1 tab(s) orally once a day; Duration: 30 day(s) 04/15/2023 Active SIT (CLUSTER) VARIABLE PER SCHEDULE SC PER SCHEDULE; Duration: 1 DAYS *Please review for potential replacement for e-prescription and drug interaction check* Not-Taking Litfulo 50 MG 1 cap(s) orally once a day 04/15/2023 Not-Taking VENLAFAXINE 75 mg 1 tab(s) orally once a day; Duration: 30 day(s) 04/15/2023 Not-Taking Montelukast Sodium 10 MG TAKE 1 TABLET BY MOUTH DAILY Orally Once a day; Duration: 90 days Active Venlafaxine HCl ER 75 MG 1 tab(s) orally once a day; Duration: 30 day(s) 04/15/2023 Not-Taking Triamcinolone Acetonide 0.1 % 1 application Externally Twice a day; Duration: 30 days as needed after SCIT Active Rosuvastatin Calcium 20 MG 1 tab(s) orally once a day; Duration: 30 day(s) 04/15/2023 Not-Taking guanFACINE HCl 2 MG 1 tablet at bedtime Orally Once a day Active Olopatadine HCl 0.6 % 2 sprays in each nostril Nasally Twice a day; Duration: 30 days 02/10/2025 Active Nasacort Allergy 24HR 55 MCG/ACT 2 sprays, each nostril intranasally, avoid nasal septum daily; Duration: 30 days Not-Taking FAMOTIDINE 40 mg 1 tab(s) orally 30 mins prior to SCIT; Duration: 30 days Active Zetia 10 MG 1 tablet Orally Once a day Active EPIPEN 2-JAROCHO 0.3 mg as directed intramuscularly once; Duration: 1 days Active VITAMIN B12 1000 mcg 1 tab(s) orally once a day; Duration: 30 day(s) 04/15/2023 Not-Taking NASAL WASHES N/A as directed intranasally as needed; Duration: 30 days Active ROSUVASTATIN 20 mg 1 tab(s) orally once a day; Duration: 30 day(s) 04/15/2023 Not-Taking SIT (Traditional) variable - see record per schedule subcutaneous per schedule; Duration: 999 days Active Famotidine 40 mg 1 tab(s) orally 30 mins prior to SCIT; Duration: 30 days Active SYNTHROID 100 mcg (0.1 mg) 1 tab(s) orally once a day; Duration: 30 day(s) 04/15/2023 Not-Taking Albuterol Sulfate HFA 108 (90 Base) MCG/ACT 2 puffs as needed Inhalation every 4 hrs; Duration: 30 days Active Social History Tobacco Use: Social History Observation Description Date Details (start date - stop date) Never Smoker NA - NA Sex Assigned At : Social History Observation Description Sex Assigned At Female Tobacco Control (Standard) Question Answer Notes Tobacco use: Nonsmoker AUDIT-C (Standard) Question Answer Notes Did you have a drink contain ing alcohol in the past year? Yes How often did you have a dri nk containing alcohol in the past year? Monthly or less (1 point) How many drinks did you have on a typical day when you were drinking in the past year? 1 or 2 drinks (0 point) How often did you have six o r more drinks on one occasion in the past year? Never (0 point) Points 1 Interpretation Negative Problems Problem Type SNOMED Code ICD Code Onset Dates Problem Status W/U Status Risk Notes Problem Hyperlipidemia (96830175) Hyperlipidemia, unspecified (E78.5) Active confirmed Problem Chronic migraine without aura, non-refractory (disorder) (510285763393730) Migraine without aura, not intractable, without status migrainosus (G43.009) Active confirmed Problem Migraine with aura (9972151) Migraine with aura, not intractable, without status migrainosus (G43.109) Active confirmed Problem Chronic migraine without aura, non-intractable (254575189297670) Chronic migraine without aura, not intractable, without status migrainosus (G43.709) Active confirmed Problem Migraine without aura, not refractory (disorder) (986264974) Migraine, unspecified, not intractable, without status migrainosus (G43.909) Active confirmed Problem Chronic allergic conjunctivitis (13146022) Other chronic allergic conjunctivitis (H10.45) Active confirmed Problem Allergic rhinitis caused by pollen (disorder) (41592122) Allergic rhinitis due to pollen (J30.1) Active confirmed Problem Allergic rhinitis (31119443) Other allergic rhinitis (J30.89) Active confirmed Problem Alopecia areata (97139876) Alopecia areata, unspecified (L63.9) Active confirmed Problem Allergic rhinitis caused by animal hair and dander (166337008672713) Allergic rhinitis due to animal (cat) (dog) hair and dander (J30.81) Active confirmed Problem Urticaria (962044517) Other urticaria (L50.8) Active confirmed Problem Wheezing (73035246) Wheezing (R06.2) Active confirmed Vital Signs Respiratory Rate 17 /min 02/10/2025 Oximetry 99 % 02/10/2025 Blood pressure diastolic 74 mm Hg 02/10/2025 Height 64 in 02/10/2025 Blood pressure systolic 111 mm Hg 02/10/2025 Weight 217.6 lbs 02/10/2025 BMI 37.35 kg/m2 02/10/2025 Encounters Encounter Location Date Provider Diagnosis [facility] [address] [place] [phone] 09/15/2024 Aidan Flanneyr Allergic rhinitis du e to pollen J30.1 ; Other allergic rhinitis J30.89 ; Allergic rhinitis due to animal (cat) (dog) hair and dander J30.81 and Other chronic allergic conjunctivitis H10.45 [facility] [address] [place] [phone] 08/10/2024 Aidan Flannery Allergic rhinitis du e to pollen J30.1 ; Other allergic rhinitis J30.89 ; Allergic rhinitis due to animal (cat) (dog) hair and dander J30.81 and Other chronic allergic conjunctivitis H10.45 [facility] [address] [place] [phone] 07/12/2024 Aidan Flannery Allergic rhinitis du e to pollen J30.1 ; Other allergic rhinitis J30.89 ; Allergic rhinitis due to animal (cat) (dog) hair and dander J30.81 and Other chronic allergic conjunctivitis H10.45 [facility] [address] [place] [phone] 06/08/2024 Aidan Flannery Allergic rhinitis du e to pollen J30.1 ; Other allergic rhinitis J30.89 ; Allergic rhinitis due to animal (cat) (dog) hair and dander J30.81 and Other chronic allergic conjunctivitis H10.45 [facility] [address] [place] [phone] 05/24/2024 Aidan Flannery Allergic rhinitis du e to pollen J30.1 ; Other allergic rhinitis J30.89 ; Allergic rhinitis due to animal (cat) (dog) hair and dander J30.81 and Other chronic allergic conjunctivitis H10.45 [facility] [address] [place] [phone] 05/13/2024 Aidan Flannery Allergic rhinitis du e to pollen J30.1 ; Other allergic rhinitis J30.89 ; Allergic rhinitis due to animal (cat) (dog) hair and dander J30.81 and Other chronic allergic conjunctivitis H10.45 [facility] [address] [place] [phone] 03/16/2025 Aidan Flannery Allergic rhinitis du e to pollen J30.1 ; Other allergic rhinitis J30.89 ; Allergic rhinitis due to animal (cat) (dog) hair and dander J30.81 and Other chronic allergic conjunctivitis H10.45 [facility] [address] [place] [phone] 01/13/2025 Aidan Flannery Allergic rhinitis du e to pollen J30.1 ; Other allergic rhinitis J30.89 ; Allergic rhinitis due to animal (cat) (dog) hair and dander J30.81 and Other chronic allergic conjunctivitis H10.45 [facility] [address] [place] [phone] 01/06/2025 Aidan Flannery Allergic rhinitis du e to pollen J30.1 ; Other allergic rhinitis J30.89 ; Allergic rhinitis due to animal (cat) (dog) hair and dander J30.81 and Other chronic allergic conjunctivitis H10.45 [facility] [address] [place] [phone] 12/30/2024 Aidan Flannery Allergic rhinitis du e to pollen J30.1 ; Other allergic rhinitis J30.89 ; Allergic rhinitis due to animal (cat) (dog) hair and dander J30.81 and Other chronic allergic conjunctivitis H10.45 [facility] [address] [place] [phone] 12/08/2024 Aidan Flannery Allergic rhinitis du e to pollen J30.1 ; Other allergic rhinitis J30.89 ; Allergic rhinitis due to animal (cat) (dog) hair and dander J30.81 and Other chronic allergic conjunctivitis H10.45 [facility] [address] [place] [phone] 02/10/2025 Mira Phillips Allergic rhinitis du e to pollen J30.1 ; Allergic rhinitis due to animal (cat) (dog) hair and dander J30.81 ; Other allergic rhinitis J30.89 ; Other chronic allergic conjunctivitis H10.45 ; Personal history of anaphylaxis Z87.892 ; Other urticaria L50.8 ; Wheezing R06.2 and Headache, unspecified R51.9 [facility] [address] [place] [phone] 10/20/2024 Aidan Prudencio Allergic rhinitis du e to pollen J30.1 ; Other allergic rhinitis J30.89 ; Allergic rhinitis due to animal (cat) (dog) hair and dander J30.81 and Other chronic allergic conjunctivitis H10.[address] [phone] 12/13/2024 Mira Phillips [facility] [address] [place] [phone] 05/05/2024 Mira Phillips Assessments Encounter Date Diagnosis (ICD Code) Assessment Notes Treatment Notes Treatment Clinical Notes Section Notes 05/13/2024 Allergic rhinitis due to pollen (ICD-10 - J30.1) 05/13/2024 Other allergic rhinitis (ICD-10 - J30.89) 05/24/2024 Allergic rhinitis due to pollen (ICD-10 - J30.1) 05/24/2024 Other allergic rhinitis (ICD-10 - J30.89) 06/08/2024 Allergic rhinitis due to pollen (ICD-10 - J30.1) 06/08/2024 Other allergic rhinitis (ICD-10 - J30.89) 07/12/2024 Allergic rhinitis due to pollen (ICD-10 - J30.1) 07/12/2024 Other allergic rhinitis (ICD-10 - J30.89) 08/10/2024 Allergic rhinitis due to pollen (ICD-10 - J30.1) 08/10/2024 Other allergic rhinitis (ICD-10 - J30.89) 09/15/2024 Allergic rhinitis due to pollen (ICD-10 - J30.1) 09/15/2024 Other allergic rhinitis (ICD-10 - J30.89) 10/20/2024 Allergic rhinitis due to pollen (ICD-10 - J30.1) 10/20/2024 Other allergic rhinitis (ICD-10 - J30.89) 12/08/2024 Allergic rhinitis due to pollen (ICD-10 - J30.1) 12/08/2024 Other allergic rhinitis (ICD-10 - J30.89) 12/30/2024 Allergic rhinitis due to pollen (ICD-10 - J30.1) 12/30/2024 Other allergic rhinitis (ICD-10 - J30.89) 01/06/2025 Allergic rhinitis due to pollen (ICD-10 - J30.1) 01/06/2025 Other allergic rhinitis (ICD-10 - J30.89) 01/13/2025 Allergic rhinitis due to pollen (ICD-10 - J30.1) 01/13/2025 Other allergic rhinitis (ICD-10 - J30.89) 02/10/2025 Allergic rhinitis due to pollen (ICD-10 - J30.1) Lorrie clearly suffers from atopic disease based upon our prior skin testing and clinical history. Accordingly, we have introduced her aggressive medication regimen, discussed nasal washes and allergy-specific avoidance measures. - Lorrie has continued on SCIT, tolerated dosing today without large local or systemic reactions. She carries an AIE at all times. She is held at a lower mainteance. Discussed ttirating weekly over Winter. - Due to pruritus after dosing will send topical TAC for use as-needed. - Lorrie is to continue premedicating with Zyrtec, Pepcid and Singulair. - Continue medication regimen as above. Add on Olopatadine for recent drainage - Discussed increasing SCIT frequency in peak season. - Follow-up as scheduled SCIT dosing and 6 months for further evaluation and management 02/10/2025 Allergic rhinitis due to animal (cat) (dog) hair and dander (ICD-10 - J30.81) Follow allergen avoidance, meds and continue SCIT as an adjunctive treatment to current regimen 03/16/2025 Allergic rhinitis due to pollen (ICD-10 - J30.1) 03/16/2025 Other allergic rhinitis (ICD-10 - J30.89) 03/16/2025 Allergic rhinitis due to animal (cat) (dog) hair and dander (ICD-10 - J30.81) 02/10/2025 Other allergic rhinitis (ICD-10 - J30.89) Follow allergen avoidance, meds and continue SCIT as an adjunctive treatment to current regimen 01/13/2025 Allergic rhinitis due to animal (cat) (dog) hair and dander (ICD-10 - J30.81) 01/06/2025 Allergic rhinitis due to animal (cat) (dog) hair and dander (ICD-10 - J30.81) 12/30/2024 Allergic rhinitis due to animal (cat) (dog) hair and dander (ICD-10 - J30.81) 12/08/2024 Allergic rhinitis due to animal (cat) (dog) hair and dander (ICD-10 - J30.81) 10/20/2024 Allergic rhinitis due to animal (cat) (dog) hair and dander (ICD-10 - J30.81) 09/15/2024 Allergic rhinitis due to animal (cat) (dog) hair and dander (ICD-10 - J30.81) 08/10/2024 Allergic rhinitis due to animal (cat) (dog) hair and dander (ICD-10 - J30.81) 07/12/2024 Allergic rhinitis due to animal (cat) (dog) hair and dander (ICD-10 - J30.81) 06/08/2024 Allergic rhinitis due to animal (cat) (dog) hair and dander (ICD-10 - J30.81) 05/24/2024 Allergic rhinitis due to animal (cat) (dog) hair and dander (ICD-10 - J30.81) 05/13/2024 Allergic rhinitis due to animal (cat) (dog) hair and dander (ICD-10 - J30.81) 05/13/2024 Other chronic allergic conjunctivitis (ICD-10 - H10.45) 05/24/2024 Other chronic allergic conjunctivitis (ICD-10 - H10.45) 06/08/2024 Other chronic allergic conjunctivitis (ICD-10 - H10.45) 07/12/2024 Other chronic allergic conjunctivitis (ICD-10 - H10.45) 08/10/2024 Other chronic allergic conjunctivitis (ICD-10 - H10.45) 09/15/2024 Other chronic allergic conjunctivitis (ICD-10 - H10.45) 10/20/2024 Other chronic allergic conjunctivitis (ICD-10 - H10.45) 12/08/2024 Other chronic allergic conjunctivitis (ICD-10 - H10.45) 12/30/2024 Other chronic allergic conjunctivitis (ICD-10 - H10.45) 01/06/2025 Other chronic allergic conjunctivitis (ICD-10 - H10.45) 01/13/2025 Other chronic allergic conjunctivitis (ICD-10 - H10.45) 02/10/2025 Other chronic allergic conjunctivitis (ICD-10 - H10.45) Given ocular signs and symptoms I encouraged allergy avoidance measures and meds as above. If symptoms persist, consider adding additional medications including intraocular antihistamine/mast cell stabilizer, PRN and continue SCIT as an adjunctive measure 03/16/2025 Other chronic allergic conjunctivitis (ICD-10 - H10.45) 02/10/2025 Personal history of anaphylaxis (ICD-10 - Z87.892) Lorrie was seen in the ER on 02/27 with vomiting, hives, dyspnea, and dizziness concerning for anaphylaxis. She received 2 rounds of Epi, steroids, and antihistamines with improvement. - From the timeline of events there is no clear trigger. Previously discussed common things like foods, stinging insects, NSAIDs, antibiotics, latex, and biologics, but she had nothing unusual that day. - She does report a few episodes of hives prior this episode at least annually. Previously ordered labs for underlying mast cell and autoimmune conditions. including an alpha-gal panel as she can't recall if she had any red meat earlier in the day. Labs returned unremarkable. - Regardless she should remain on Zyrtec, which she wasn't on at the time. Discussed adding H2 blockers and LTRA as well. Continue daily Zyrtec and Singulair. - If symptoms occur again she does have self-injecteable on hand and knows how to use it. Discussed indications for use. Journal for triggers. - Treat atopic disease aggressively, see plans above. - Return as scheduled for SCIT dosing and 4 months for further evaluation and management 02/10/2025 Other urticaria (ICD-10 - L50.8) From her history she has had several other bouts of urticaria - previously checked CSU work-up given her systemic rxn. - Prior laboratory work returned unremarkable. - Discussed restarting H1 benigno and adding Famotidine + Singulair. Wants to continue with Zyrtec + Singulair at this time 02/10/2025 Wheezing (ICD-10 - R06.2) Lorrie was previously Urgent Care with coughing and wheezing due to a URI back in Spring 2021 -No symptoms in years - Spirometry obtained last visit that showed normal FEV1, FVC, and FEV%. - If symptoms occur in the future recommend returning for evaluation and repeat spirometry, no interval issues reported today, no recent KAYLEN use, though would like refill of KAYLEN 02/10/2025 Headache, unspecified (ICD-10 - R51.9) Lorrie endorses history of migraines, has never been evaluated by neurology. - Lorrie is now established at [facility] Plan Of Treatment Next Appt Details Provider Name:Aidan Flannery , 04/18/2025 11:00:00 AM, [address], [address], [place], [address], Provider Name:Mira Phillips , 08/04/2025 03:30:00 PM, [address], [place], [address], Insurance Providers Payer Name Payer Address Payer Phone Subscriber Number Group Number Insured Name Patient Relationship to Insured Coverage Start Date Coverage End Date [facility] [address] [place] [address] [phone] [id number] Lorrie Strong Self - patient is the insured 3 Medical (General) History Medical History History ICD Code Alopecia areata, unspecified L63.9 Hyperlipidemia, unspecified E78.5 hashimotoa Migraine, unspecified, not intractable, without status migrainosus G43.909 Surgical History Surgery Date(Month/Year) knee scope 2012 Ankle Surgery 2002 carpal tunnel release 2022 Achilles Tendon repair 2023 Hospitalization History Reason Date(Month/Year) childbirth 2016 childbirth 2014
--- OUTSIDE RECORDS SUMMARY | 2025-03-24 09:43 | XMS_ITS | Clinical Summary ---
Author Organization [facility] [employer] Address [address] [place] [address] Care Team Providers Care Account Executive Key Accounts Name Role Phone Shellie Blanco MD Primary Care Provider [phone] Source Comments [facility] [employer],non-owned Affiliates and Associated Physician Practices is amultiple site organization consisting of ambulatory clinics and hospital sitesin [place], [place], [place] and [place]. This disclosure is being madepursuant to the Care Everywhere program and may not contain all information available regarding this patient. Last updated 18.[facility] [employer] Allergies Active Allergy Reactions Criticality Noted Date Comments Azithromycin GI Discomfort High 02/17/2023 Medications * Be aware that medications may not be up to date on this document. Alwaysverify current medications with the patient. Levothyroxine Sodium (SYNTHROID PO) Take 100 mcg by mouth once daily Active ALPRAZolam (Xanax) 0.5 MG tablet 05/23/2023 Active azelastine (Astepro) 205.5 MCG/SPRAY nasal spray Active cyclobenzaprine (Flexeril) 10 MG tablet TAKE 1 TABLET BY MOUTH TWICE DAILY NEEDED FOR MUSCLE SPASM 03/29/2022 Active eletriptan (Relpax) 40 MG tablet 04/24/2023 Active EPINEPHrine (Epipen) 0.3 MG/0.3ML auto-injector pen 02/27/2023 Active ezetimibe (Zetia) 10 MG tablet 05/23/2023 Active Litfulo 50 MG CAPS 06/01/2023 Active Ozempic, 0.25 or 0.5 MG/DOSE, 2 MG/1.5ML pen 06/10/2022 Acti ve venlafaxine XR 24hr (Effexor XR) 75 MG capsule 06/16/2023 Active cetirizine (ZyrTEC) 10 MG tablet Take 1 (one) tablet by mouth once daily Active cyanocobalamin (Vitamin B-12) injection Inject 1,000 (one thousand) mcg into muscle every 7 days 08/11/2023 Active famotidine (Pepcid) 40 MG tablet Take 1 (one) tablet by mouth as needed Active montelukast (Singulair) 4 MG chew tablet Take 1 (one) tablet by mouth at bedtime Active scopolamine (Transderm-Scop ) 1 MG patch Apply 1 (one) patch to skin as directed 11/17/2023 Active spironolactone (Aldactone) 50 MG tablet Take 1 (one) tablet by mouth once daily 11/24/2023 Active triamcinolone (Nasacort Allergy 24HR) 55 MCG/ACT nasal inhaler [place] 2 (two) sprays into each nostril once daily Active Active Problems Problem Noted Date Diagnosed Date Vitamin B12 deficiency (non anemic) 02/01/2023 02/17/2023 Nonalcoholic fatty liver 12/25/2022 023 Overview (02/20/2023): 02/17/23 Fibroscan CAP 335, LSM 6.7 kPa Steatosis of liver 12/18/2022 02/17/2023 Elevated liver enzymes 09/10/2022 Prediabetes 09/10/2022 02/17/2023 Hypothyroidism 07/17/2022 02/17/2023 Immunizations Immunization Administration Dates Next Due Rho D Immune Globulin 11/18/2015 TDAP, HISTORIC VACCINE 05/26/2013 Family History Medical History Relation Name Comments Diabetes - Type 2 Brother Hyperlipidemia Father Thyroid Disease Father Parkinson's Disease Maternal Grandmother Renal Disease Maternal Grandmother Hyperlipidemia Mother Hypertension Mother Cancer - Lung Paternal Grandfather Renal Disease Paternal Grandfather Parkinson's Disease Paternal Grandmother Renal Disease Paternal Grandmother Relation Name Status Comments Brother Father Maternal Grandmother Mother Alive Paternal Grandfather Paternal Grandmother Social History Tobacco Use Types Packs/Day Years Used Date Smoking Tobacco: Never Smokeless Tobacco: Never Tobacco Cessation:Counseling Given: Not Answered Alcohol Use Standard Drinks/Week Comments Yes 0 (1 standard drink = 0.6 oz pur e alcohol) 1 glass of wine once a month Comments Unknown Sex and Gender Information Value Date Recorded Sex Assigned at Not on file 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 Gender Identity Not on file Sexual Orientation Not on file Last Filed Vital Signs Vital Sign Reading Time Taken Comments Blood Pressure 130/84 12/04/2023 1:14 PM CDT Pulse 92 12/04/2023 1:14 PM CDT Temperature 36.4 C (97.5 F) 06/27/2023 9:06 AM TRIPLE AIR VALVE TESTER Respiratory Rate 18 02/17/2023 10:0 7 AM CDT Oxygen Saturation 98% 07/24/2023 3:27 PM TRIPLE AIR VALVE TESTER Inhaled Oxygen Concentration - - Weight 102.4 kg (225 lb 12.8 oz) 12/04/2023 1:14 PM CDT Height 162.6 cm (5' 4) 12/04/2023 1:14 PM CDT Body Mass Index 38.76 12/04/2023 1:14 PM CDT Plan of Treatment Health Maintenance Due Date Last Done Comments HIV SCREENING 2001 HEPATITIS C SCREENING 06/26/2004 HEPATITIS B VACCINE (1 of 3 - 19+ 3-dose series) 2005 PAP SMEAR 2007 HPV VACCINE (1 - 3-dose SCDM series) 2013 DTAP/TDAP/TD VACCINES (2 - T d or Tdap) 05/26/2023 05/26/2013 DEPRESSION SCREENING 05/26/2024 COVID-19 VACCINE (4 - 2024-2 6 season) 2025 05/30/2021, 08/13/2020, 07/22/2020 INFLUENZA VACCINE (#1) 2025 ZOSTER VACCINE (1 of 2) 2036 HIB VACCINE Aged Out No longer eligi ble based on patient's age to complete this topic MENINGOCOCCAL (Group B) VACCINE SHARED DECISION-MAKING Aged Out No longer eligible based on patient's age to complete this topic MENINGOCOCCAL GROUPS A/C/Y/W VACCINE Aged Out No longer eligible b ased on patient's age to complete this topic PNEUMOCOCCAL VACCINE Aged Out No long er eligible based on patient's age to complete this topic Goals Goal Patient Goal Type Associated Problems Recent Progress Patient-Stated? Author Medication Management General On track( 024 3:33 PM TRIPLE AIR VALVE TESTER) Gayle Martinez, RN Note: Expected end date: Ongoing Interventions: Take all medications as prescribed Let your doctor know right away about any changes in your medications Make sure to request a refill of your medication at least one week prior to your last dose Insurance [facility] Care Teams Account Executive Key Accounts Relationship Specialty Start Date End Date Shellie Blanco MD [address] [place] [address] PCP - General Family Medicine 07/24/23
--- OUTSIDE RECORDS SUMMARY | 2025-03-24 09:44 | XMS_ITS | Clinical Summary ---
Author Organization [facility] Address [address] [place] [address] Phone Care Team Providers Care Poultry Culler Name Role Phone Kim Pretty MD Primary Care Provi jeff Allergies Active Allergy Reactions Criticality Noted Date Comments Azithromycin Other (see Comments) 04/24/2020 Stomach cramps Medications No known medications Active Problems No known active problems Immunizations Immunization Administration Dates Next Due Covid-19, Mrna, Lnp-s, Pf, 30 Mcg/0.3 Ml Dose (P fizer) 05/30/2021 Social History Tobacco Use Types Packs/Day Years Used Date Smoking Tobacco: Never Smokeless Tobacco: Never Comments No Sex and Gender Information Value Date Recorded Sex Assigned at Not on file 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 Gender Identity Not on file Sexual Orientation Not on file Last Filed Vital Signs Vital Sign Reading Time Taken Comments Blood Pressure 118/84 04/24/2020 8:40 AM FINISHING RANGE SUPERVISOR Pulse 80 04/24/2020 8:40 AM FINISHING RANGE SUPERVISOR Temperature 36.4 C (97.6 F) 04/24/2020 8:40 AM FINISHING RANGE SUPERVISOR Respiratory Rate 20 04/24/2020 8:40 AM FINISHING RANGE SUPERVISOR Oxygen Saturation 98% 04/24/2020 8:40 AM FINISHING RANGE SUPERVISOR Inhaled Oxygen Concentration - - Weight - - Height - - Body Mass Index - - Plan of Treatment Health Maintenance Due Date Last Done Comments Hepatitis C Virus (HCV) Screening 1986 Hepatitis B Immunization (1 of 3 - 19+ 3-dose series) 2005 Pap Smear 2007 Human Papillomavirus (HPV) Immunization (1 - 3-dose SCDM series) 2013 Cervical Cancer Screening (CCS) 2016 HPV/Cotest 2016 Influenza Immunization (#1) 2025 SARS-COV-2 Immunization ( season) 2025 05/30/2021, 08/13/2020, 07/22/2020 Respiratory Syncytial Virus (RSV) Immunization (Adult) (1 - 1-dose 75+ series) 2061 DTaP/Tdap/Td Immunization Discontinued 05/26/2013 TdaP Immunization Completed 05/26/2013 Meningococcal Immunization (ACWY) Aged Out No longer eligible based on patient's age to complete this topic Pneumococcal Immunization Combined Aged Out No longer eligible based on patient's age to complete this topic Rotavirus Immunization Aged Out No lo nger eligible based on patient's age to complete this topic Care Teams Poultry Culler Relationship Specialty Start Date End Date Kim Pretty MD [address] [place] [address] PCP - General Family Medicine 04/24/20
--- OUTSIDE RECORDS SUMMARY | 2025-03-24 09:44 | XMS_ITS | Patient Health Record ---
Author Organization [facility] Address [address] [address] Care Team Providers Care Prefitter Doors Name Role Phone Antonia Dumas Primary Care Provider [phone] Migration, Provider Unavailable Unavailable Allergies No Known Allergies Results Component Value Reference Range Notes COMPREHENSIVE METABOLIC PANE L (Not yet reviewed by provider) Interpretation: Performing Lab:[facility], [address] [place], [address] Eva Villa MD Notes/Report: FASTING:YES FASTING: YES VITAMIN D, 25-HYDROXY, LC/MS /MS (Not yet reviewed by provider) Interpretation: Performing Lab:[facility], [address] [place], [address] Eva Villa MD Notes/Report: FASTING:YES FASTING: YES ACTH, PLASMA (Not yet review ed by provider) Interpretation: Performing Lab:[facility] On license of [facility], [address], [place], [address] Aidan Colin M.D.,PhD Notes/Report: FASTING:YES FASTING: YES CORTISOL, TOTAL (Not yet rev iewed by provider) Interpretation: Performing Lab:[facility], [address] [place], [address] Eva Villa MD Notes/Report: FASTING:YES FASTING: YES DHEA SULFATE (Not yet review ed by provider) Interpretation: Performing Lab:[facility], [address] [place], [address] Eva Villa MD Notes/Report: FASTING:YES FASTING: YES HEMOGLOBIN A1c (Not yet revi ewed by provider) Interpretation: Performing [facility], [address], [place], [address] Eva Villa Notes/Report: FASTING:YES FASTING: YES CBC (INCLUDES DIFF/PLT) (Not yet reviewed by provider) Interpretation: Performing Lab:[facility], [address] [place], [address] Eva Villa MD Notes/Report: FASTING:YES FASTING: YES IRON AND TOTAL IRON BINDING CAPACITY (Not yet reviewed by provider) Interpretation: Performing Lab:[facility], [address] [place], [address] Eva Villa MD Notes/Report: FASTING:YES FASTING: YES T4, FREE (Not yet reviewed b y provider) Interpretation: Performing Lab:[facility], [address] [place], [address] Eva Villa MD Notes/Report: FASTING:YES FASTING: YES TSH (Not yet reviewed by pro vider) Interpretation: Performing Lab:[facility], [address] [place], [address] Eva Villa MD Notes/Report: FASTING:YES FASTING: YES VITAMIN B12 (Not yet reviewe d by provider) Interpretation: Performing Lab:[facility], [address] [place], [address] Eva Villa MD Notes/Report: FASTING:YES FASTING: YES MAGNESIUM, RBC (Not yet revi ewed by provider) Interpretation: Performing Lab:[id number], [address] [address], [address], [place], [address] Meche Gonzalez MD,PhD Notes/Report: FASTING:YES FASTING: YES MAGNESIUM, RBC 5.9 4.0-6.4 mg/dL (Note) This test was developed and its analytical performance characteristics have been determined by [employer]. It has not been cleared or approved by the FDA. This assay has been validated pursuant to the CLIA regulations and is used for clinical purposes. [facility] [address] [address],[address] [place] [id number] Meche Gonzalez MD, PhD Reason For Referral No Information Medications Medication SIG (Take, Route, Frequency, Duration) Notes Start Date End Date Status Ezetimibe 10 MG ; Duration: 90 Days Active ALPRAZolam 0.5 MG ; Duration: 90 Days Active ALPRAZolam 0.5 MG 1 tab(s) orally twic e daily as needed; Duration: 60 days 03/10/2024 Active Effexor XR 75 MG 1 cap(s) orally once a day; Duration: 30 days 07/10/2023 Active Ozempic (2 MG/DOSE) 8 MG/3ML ; Duration: 84 Days Not-Taki ng Effexor XR 37.5 MG 1 cap(s) orally once a day; Duration: 60 days 01/29/2024 Active Synthroid 100 MCG 1 tab(s) orally once a day; Duration: 90 days 12/01/2023 Active busPIRone HCl 10 MG 1 tab(s) orally 2 ti mes a day; Duration: 90 days 01/29/2024 Active Cyanocobalamin 1000 MCG/ML inject 1000 mg subcutaneously once a week; Duration: 90 days 12/01/2023 Active Cyanocobalamin 1000 MCG/ML ; Duration: 84 Days Active Zepbound 2.5 MG/0.5ML inject 2.5 mg subcutaneously once a week; Duration: 30 days 01/29/2024 Active Aldactone 50 MG 2 tablets orally onc e daily; Duration: 90 days 12/01/2023 Active Spironolactone 50 MG 2 tablets Orally On ce a day; Duration: 90 days 06/03/2024 Active Litfulo 50 MG ; Duration: 28 Days Active Ondansetron HCl 4 MG 1 tab(s) orally twi ce daily as needed for nausea; Duration: 90 days 01/29/2024 Active Synthroid 100 MCG 1 tab(s) orally once a day; Duration: 90 days 02/16/2024 Active Synthroid 100 MCG 1 tablet in the morn ing on an empty stomach Orally Once a day; Duration: 90 days 06/07/2024 Active dexAMETHasone 1 MG 1 tab(s) orally once at 10 pm night before 8 am cortisol; Duration: 1 days 01/29/2024 Active Synthroid 100 MCG 1 tab(s) orally once a day; Duration: 14 days 02/27/2024 Active busPIRone HCl 15 MG 1 tab(s) orally 2 ti mes a day; Duration: 30 days 03/10/2024 Active Problems Problem Type SNOMED Code ICD Code Onset Dates Problem Status W/U Status Risk Notes Problem Hyperlipidemia (24704856) Hyperlipidemia, unspecified (E78.5) Active confirmed Problem Hypothyroidism (53970502) Hypothyroidism, unspecified (E03.9) Active confirmed Problem Obesity (977076205) Obesity, unspecified (E66.9) Active confirmed Problem Autoimmune thyroiditis (46848685) Autoimmune thyroiditis (E06.3) Active confirmed Problem Polycystic ovary syndrome (disorder) (112283700) Polycystic ovarian syndrome (E28.2) Active confirmed Problem Morbid obesity (disorder) (301516370) Morbid (severe) obesity due to excess calories (E66.01) Active confirmed Problem Obesity due to excess calories (886181026) Other obesity due to excess calories (E66.09) Active confirmed Problem Generalized anxiety disorder (62087246) Generalized anxiety disorder (F41.1) Active confirmed Problem Fatty liver (153250478) Fatty (change of) liver, not elsewhere classified (K76.0) Active confirmed Problem Intestinal malabsorption (452977440) Intestinal malabsorption, 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) Active confirmed Problem Alopecia areata (99132729) Alopecia areata, unspecified (L63.9) Active confirmed Encounters Encounter Location Date Provider Diagnosis [facility] Antoniadane Dumas [address] [place] [address] 08/02/2024 Antonia Dumas [address] [address] 04/10/2024 Provider Migration Hypothyroidism, unspecified E03.9 ; Obesity, unspecified E66.9 ; Generalized anxiety disorder F41.1 and Nausea R11.0 [facility], [facility] Antoniadane Dumas [address] [place] [address] 06/03/2024 Antonia Dumas [facility] Antoniadane Dumas [address] [place] [address] 06/03/2024 Antonia Piter Polycystic ovarian syndrome E28.2 [facility], [facility] - Antoniadane Dumas [address] [place] [address] 06/07/2024 Antonia Piter Hypothyroidism, unspecified E03.9 [facility] Antonia Piter [address] [place] [address] 06/07/2024 Antonia Piter [facility], [facility] Antonia Piter [address] [place] [address] 06/07/2024 Antonia Piter Assessments Encounter Date Diagnosis (ICD Code) Assessment Notes Treatment Notes Treatment Clinical Notes Section Notes 04/10/2024 Hypothyroidism, unspecified (ICD-10 - E03.9) 06/03/2024 Polycystic ovarian syndrome (ICD-10 - E28.2) 06/07/2024 Hypothyroidism, unspecified (ICD-10 - E03.9) 04/10/2024 Obesity, unspecified (ICD-10 - E66.9) 04/10/2024 Generalized anxiety disorder (ICD-10 - F41.1) 04/10/2024 Nausea (ICD-10 - R11.0) Plan Of Treatment Pending Test Test Name Order Date -PANCREATIC ELASTASE 3878 07/10/2023 COMPREHENSIVE METABOLIC PANEL 07/12/2024 COMPREHENSIVE METABOLIC PANEL 07/10/2023 VITAMIN D, 25-HYDROXY, LC/MS/MS 07/12/19 25 ACTH, PLASMA 07/12/2024 T3, FREE 07/10/2023 CORTISOL, TOTAL 07/12/2024 DHEA SULFATE 07/12/2024 HEMOGLOBIN A1c 07/12/2024 CBC (INCLUDES DIFF/PLT) 07/12/2024 IRON AND TOTAL IRON BINDING CAPACITY T4, FREE 07/10/2023 T4, FREE 07/12/2024 TSH 07/12/2024 TSH 07/10/2023 VITAMIN B12 07/12/2024 VITAMIN B12 07/10/2023 MAGNESIUM, RBC 07/12/2024 Insurance Providers Payer Name Payer Address Payer Phone Subscriber Number Group Number Insured Name Patient Relationship to Insured Coverage Start Date Coverage End Date [facility] [address] [address] [place] [address] [id number] Lorrie Strong Self - patient is the insured Medical (General) History Medical History History ICD Code Autoimmune thyroiditis E06.3 Hyperlipidemia, unspecified E78.5 Alopecia areata, unspecified L63.9
== END 2025-03-24 09:11 | disposition home or self-care (01) ==
LOC: ANHLAB 09:11
PROVIDERS: PCP Family Medicine; Visit Provider Podiatrist Foot & Ankle Surgery
DX: Z01.818 Encounter for other preprocedural examination (principal); R94.31 Abnormal electrocardiogram [ECG] [EKG]
CPT/HCPCS: 93005

== ENCOUNTER 2025-05-17 09:27 | Outpatient (CLI) | payer OTHER, SELFPAY ==
--- OUTSIDE RECORDS SUMMARY | 2024-08-02 15:40 | XMS_ITS ---
Author Organization [facility] Address [address] [place], [place] [id number] Phone [phone] Care Team Providers Care Care Provider Name Role Phone Antonia Dumas MD [phone] REASON FOR VISIT lab review Social History Sex Observation Social History Observation Description Sex Observation Female Encounters Date Time Type Facility Location Provider Diagnosis 08/02/2024 03:40 PM Office Visit [facility] Dumas [address] [place] [address] Antonia Dumas Plan Of Treatment No Information Medical (General) History Medical History History ICD Code Autoimmune thyroiditis E06.3 Hyperlipidemia, unspecified E78.5 Alopecia areata, unspecified L63.9 Progress Notes * Shaka STRONGhelDOB:1985 ([age] yo F)Acc No.[id number]:08/02/2024 Progress Notes Patient: Lorrie Strong Provider: Antonia Dumas MD :1985 Age:39 Y Sex:Female Date:08/02/2024 Address:[address] [place], [place] [id number] Subjective: * Chief Complaints: * Lab review * Electronic signature of Stepan Dumas MD on 05/17/2025 at 09:49 AM MEDICAL ILLUSTRATOR Sign off status: Pending * Provider: Antonia Dumas MD Date: 08/02/2024 Generated for Printi ng/Faxing/eTransmitting on: 05/17/2025 09:49 AM MEDICAL ILLUSTRATOR
--- OUTSIDE RECORDS SUMMARY | 2024-10-19 11:20 | XMS_ITS ---
Author Organization [facility] Address [address] [facility] [facility] [place] [id number] Phone [phone] Care Team Providers Care Paralegal Specialist Name Role Phone Antonia Dumas MD Unavailable [phone] REASON FOR VISIT lab f/u Medications Medication SIG (Take, Route, Frequency, Duration) Notes Start Date End Date Diagnosis (ICD Code) Status Cyanocobalamin 1000 MCG/ML Solution inject 1000 mg subcutaneously once a week; Duration: 90 days 4 Vitamin B12 deficiency anemia, unspecified (ICD_10 - D51.9) Active ALPRAZolam 0.5 MG Tablet ; Duration: 90 Days only as needed Active Synthroid 100 MCG Tablet 1 tab(s) orally once a day; Duration: 90 days 4 Hypothyroidism, unspecified (ICD_10 - E03.9) Active Ezetimibe 10 MG Tablet ; Duration: 90 Days Active Spironolactone 50 MG Tablet 2 tablets Orally Once a day; Duration: 90 days one daily 5 Polycystic ovarian syndrome (ICD_10 - E28.2) Active Litfulo 50 MG Capsule ; Duration: 28 Days Active Ondansetron HCl 4 MG Tablet 1 tab(s) orally twice daily as needed for nausea; Duration: 90 days 4 Nausea (ICD_10 - R11.0) Active dexAMETHasone 1 MG Tablet 1 tab(s) orally once at 10 pm night before 8 am cortisol; Duration: 1 days 4 Obesity, unspecified (ICD_10 - E66.9) Active dexAMETHasone 1 MG Tablet 1 tablet Orally at 10 pm night before 8 am cortisol; Duration: 1 days 5 Insomnia, unspecified type (ICD_10 - G47.00) Active Pregabalin 100 MG Capsule 1 capsule Orally Once a day twice daily Active Ergocalciferol 1.25 MG (73203 UT) Capsule 1 capsule Orally weekly; Duration: 90 days 5 Vitamin D deficiency (ICD_10 - E55.9) Active Social History Sex Observation Social History Observation Description Sex Observation Female Encounters Date Time Type Facility Location Provider Diagnosis 10/19/2024 11:20 AM Office Visit [facility] Dumas [address] [place] [address] Antonia Dumas Plan Of Treatment No Information Medical (General) History Medical History History ICD Code Autoimmune thyroiditis E06.3 Hyperlipidemia, unspecified E78.5 Alopecia areata, unspecified L63.9 History and Physical Notes * HPI (History of Present Illness) Category c/o Denies Symptom Duration Details Notes Catego ry Notes History of Present Illness 39 yo female calls in today to initiate telehealth visit to discuss progress and management of autoimmune thyroiditis, alopecia, hyperlipidemia, weight management and fatty liver disease.Verbal consent provided by patient to proceed with this visit. This visit was performed in office via provider and patient located in primary care office with real time audio with video.At last visit in July we continued synthroid 100 mcg daily.We introduced zepbound for weight loss and introduced low dose buspar and started weaning off venlafaxine due to ineffectiveness for KELLI, We continued spironolactone 100 mg daily for hair loss.DST completed and cortisol of 1.4 ug/dL Progress Notes * Shaka STRONGhelDOB:1985 ([age] yo F)Acc No.[id number]:10/19/2024 Progress Notes Patient: Lorrie Strong Provider: Antonia Dumas MD :1985 Age:39 Y Sex:Female Date:10/19/2024 Address:[address] [place] [address] Subjective: * Chief Complaints: * Lab f/u * HPI: History of Present Illness: 39 yo female calls [...] and cortisol of 1.4 ug/dL. * Medications: TakingErgocalciferol 1.25 MG (22805 UT) Capsule 1 capsule Orally weekly Ergocalciferol 1.25 MG (45367 UT) Capsule 1 capsule Orally weekly [id number] 1 MG Tablet 1 tablet Orally at 10 pm night before 8 am cortisol dexAMETHasone 1 MG Tablet 1 tablet Orally at 10 pm night before 8 am cortisol 818538Dgxzsmbquv 100 MG Capsule 1 capsule Orally Once a day , Notes to Pharmacist: twice dailyPregabalin 100 MG Capsule 1 capsule Orally Once a day , Notes to Pharmacist: twice [id number] HCl 4 MG Tablet 1 tab(s) orally twice daily as needed for nausea Ondansetron HCl 4 MG Tablet 1 tab(s) orally twice daily as needed for nausea [id number] 1 MG Tablet 1 tab(s) orally once at 10 pm night before 8 am cortisol dexAMETHasone 1 MG Tablet 1 tab(s) orally once at 10 pm night before 8 am cortisol 779986Zhwdatf 50 MG Capsule Litfulo 50 MG Capsule 058028Sloquwowu 10 MG Tablet Ezetimibe 10 MG Tablet [id number] 0.5 MG Tablet , Notes to Pharmacist: only as neededALPRAZolam 0.5 MG Tablet , Notes to Pharmacist: only as [id number] 100 MCG Tablet 1 tab(s) orally once a day Synthroid 100 MCG Tablet 1 tab(s) orally once a day 821804Melbfxagjgkubx 1000 MCG/ML Solution inject 1000 mg subcutaneously once a week Cyanocobalamin 1000 MCG/ML Solution inject 1000 mg subcutaneously once a week 499495Tbcvwbvkgijsry 50 MG Tablet 2 tablets Orally Once a day , Notes to Pharmacist: one dailySpironolactone 50 MG Tablet 2 tablets Orally Once a day , Notes to Pharmacist: one [id number] Ergocalciferol 1.25 MG (58151 UT) Capsule 1 capsule Orally weekly Taking [...] Notes to Pharmacist: one daily Objective: * Past Orders: Lab:.COMPREHENSIVE METABOLIC PANEL ([id number]) [facility] (Order Date - 09/30/2024) (Collection Date & [...] 06:29:14 PM CDT >discuss at return visit Lab:.CBC (INCLUDES DIFF/PLT) (6399) (Order Date - 09/30/2024) [...] NEUTROPHILS 51.6 - % ABSOLUTE NEUTROPHILS 3406 5036-8523 - cells/uL LYMPHOCYTES 39.1 - % ABSOLUTE LYMPHOCYTES 2581 850-3900 - cells/uL MONOCYTES 6.1 - % ABSOLUTE MONOCYTES 403 200-950 - cells/uL EOSINOPHILS 2.7 - % ABSOLUTE EOSINOPHILS 178 15-500 - cells/uL BASOPHILS 0.5 - % ABSOLUTE BASOPHILS 33 0-200 - cells/uL MPV 10.2 7.5-12.5 - fL Notes: Antonia Dumas 10/02/2024 06:29:14 PM CDT >discuss at return visit Lab:DHEA SULFATE (402) (Order Date - 09/30/2024) (Collection Date & Time - 09/30/2024 08:16 AM) Value Reference Range DHEA SULFATE 54 19-237 - mcg/dL Notes: Antonia Dumas 10/02/2024 06:29:14 PM CDT >discuss at return visit Lab:T4, FREE (866) (Order Date - 09/30/2024) (Collection Date & Time - 09/30/2024 08:16 AM) Value Reference Range T4, FREE 1.7 0.8-1.8 - ng/dL Notes: Antonia Dumas 10/02/2024 06:29:14 PM CDT >discuss at return visit Lab:TSH (899) (Order Date - 09/30/2024) (Collection Date & Time - 09/30/2024 08:16 AM) Value Reference Range TSH 4.30 - mIU/L Notes: Antonia Dumas 10/02/2024 06:29:14 PM CDT >discuss at return visit Lab:T3, FREE (07578) (Order Date - 09/30/2024) (Collection Date & Time - 09/30/2024 08:16 AM) Value Reference Range T3, FREE 3.5 2.3-4.2 - pg/mL Notes: Antonia Dumas 10/02/2024 06:29:14 PM CDT >discuss at return visit Lab:ACTH, PLASMA (211) (Order Date - 09/30/2024) (Collection Date & Time - 09/30/2024 08:16 AM) Value Reference Range ACTH, PLASMA 10 6-50 - pg/mL Notes: Antonia Dumas 10/02/2024 06:29:14 PM CDT >discuss at return visit Lab:CORTISOL, TOTAL (367) (Order Date - 09/01/2024) (Collection Date & Time - 09/01/2024 07:45 AM) Value Reference Range CORTISOL, TOTAL 1.4 L - mcg/dL Notes: Antonia Dumas 09/05/2024 06:03:56 PM CDT >DST not positive but borderline discuss at return Lab:DEXAMETHASONE (85061) (Order Date - 09/01/2024) (Collection Date & Time - 09/01/2024 07:45 AM) Value Reference Range DEXAMETHASONE 448 - ng/dL Notes: Antonia Dumas 09/05/2024 06:03:56 PM CDT >DST not positive but borderline discuss at return Antonia Dumas 09/13/2024 11:14:00 PM CDT >dexa in range Billing Information: * Procedure Codes: * Electronic signature of Stepan Dumas MD on 05/17/2025 at 09:49 AM TRACTION POWER ENGINEER Sign off status: Pending * Provider: Antonia Dumas MD Date: 10/19/2024 Generated for Printi ng/Fafang/eTransmitting on: 05/17/2025 09:49 AM TRACTION POWER ENGINEER
--- OUTSIDE RECORDS SUMMARY | 2024-10-21 11:40 | XMS_ITS ---
Author Organization [facility] Address [address] [place], [place] [address] Phone [phone] Care Team Providers Care Risk Control Specialist Name Role Phone Antonia Dumas MD [phone] REASON FOR VISIT lab f/u Social History Sex Observation Social History Observation Description Sex Observation Female Encounters Date Time Type Facility Location Provider Diagnosis 10/21/2024 11:40 AM Office Visit [facility] Dumas [address] [place] [address] Antonia Dumas Plan Of Treatment No Information Medical (General) History Medical History History ICD Code Autoimmune thyroiditis E06.3 Hyperlipidemia, unspecified E78.5 Alopecia areata, unspecified L63.9 Progress Notes * Shaka STRONGhelDOB:1985 ([age] yo F)Acc No.[id number]:10/21/2024 Progress Notes Patient: Lorrie Strong Provider: Antonia Dumas MD :1985 Age:39 Y Sex:Female Date:10/21/2024 Address:[address] [place], [place] [id number] Subjective: * Chief Complaints: * Lab f/u * Electronic signature of Stepan Dumas MD on 05/17/2025 at 09:49 AM ROCKET ENGINE MECHANIC Sign off status: Pending * Provider: Antonia Dumas MD Date: 10/21/2024 Generated for Rashardi ng/Gerson/eTransmitting on: 05/17/2025 09:49 AM ROCKET ENGINE MECHANIC
--- OUTSIDE RECORDS SUMMARY | 2025-02-03 08:40 | XMS_ITS ---
Author Organization [facility] Address [address] [facility] [facility] [place] [id number] Phone [phone] Care Team Providers Care Molder Vacuum Name Role Phone Antonia Dumas MD [phone] REASON FOR VISIT follow up Medications Medication SIG (Take, Route, Frequency, Duration) Notes Start Date End Date Diagnosis (ICD Code) Status ALPRAZolam 0.5 MG Tablet ; Duration: 90 Days only as needed Active Ezetimibe 10 MG Tablet ; Duration: 90 Days Active Spironolactone 50 MG Tablet 2 tablets Orally Once a day; Duration: 90 days one daily 5 Polycystic ovarian syndrome (ICD_10 - E28.2) Active Cyanocobalamin 1000 MCG/ML Solution inject 1000 mg subcutaneously once a week; Duration: 90 days 4 Vitamin B12 deficiency anemia, unspecified (ICD_10 - D51.9) Active Synthroid 100 MCG Tablet 1 tab(s) orally Once a day; Duration: 90 days 4 Hypothyroidism, unspecified (ICD_10 - E03.9) Active Ondansetron HCl 4 MG Tablet 1 tab(s) orally twice daily as needed for nausea; Duration: 90 days 4 Nausea (ICD_10 - R11.0) Active Pregabalin 100 MG Capsule 1 capsule [...] Insomnia, unspecified type (ICD_10 - G47.00) Active Ergocalciferol 1.25 MG (76697 UT) Capsule 1 capsule Orally weekly; Duration: 90 days 5 Vitamin D deficiency (ICD_10 - E55.9) Active Social History Sex Observation Social History Observation Description Sex Observation Female Encounters Date Time Type Facility Location Provider Diagnosis 02/03/2025 08:40 AM Office Visit [facility] Dumas [address] [place] [address] Antonia Dumas Plan Of Treatment No Information [...] alopecia, hyperlipidemia, weight management and fatty liver disease.At last visit in October we continued synthroid [address] adrenal as ACTH and DHEAS levels are lowDST of 1.4 ug/dL Progress Notes * Shaka STRONGhelDOB:1985 ([age] yo F)Acc No.[id number]:02/03/2025 Progress Notes Patient: Lorrie Strong Provider: Antonia Dumas MD :1985 Age:39 Y Sex:Female Date:02/03/2025 Address:[address] [place] [address] Subjective: * Chief Complaints: * Follow up * HPI: History of Present Illness: 39 yo female comes in for follow up in management of autoimmune thyroiditis, alopecia, hyperlipidemia, weight management and fatty liver disease. At last visit in October we continued synthroid 100 mcg daily We sent for CT adrenal as ACTH and DHEAS levels are low DST of 1.4 ug/dL. * Medications: TakingErgocalciferol 1.25 MG (08407 UT) Capsule 1 capsule Orally weekly Ergocalciferol 1.25 MG (80063 UT) Capsule 1 capsule Orally weekly 228539leiFTBBCluooj 1 MG Tablet 1 tablet Orally at 10 pm night before 8 am cortisol dexAMETHasone 1 MG Tablet 1 tablet Orally at 10 pm night before 8 am cortisol 785341Eweqignmbw 100 MG Capsule 1 capsule Orally Once a day , Notes to Pharmacist: twice dailyPregabalin 100 MG Capsule 1 capsule Orally Once a day , Notes to Pharmacist: twice rednk679496Crngpnmzfdh HCl 4 MG Tablet 1 tab(s) orally twice daily as needed for nausea Ondansetron HCl 4 MG Tablet 1 tab(s) orally twice daily as needed for nausea 882119hvkBQKBThavmy 1 MG Tablet 1 tab(s) orally once at 10 pm night before 8 am cortisol dexAMETHasone 1 MG Tablet 1 tab(s) orally once at 10 pm night before 8 am cortisol 944365Gjwktzs 50 MG Capsule Litfulo 50 MG Capsule 727502Sdxbrwpev 10 MG Tablet Ezetimibe 10 MG Tablet 886275IKQXXQtjan 0.5 MG Tablet , Notes to Pharmacist: only as neededALPRAZolam 0.5 MG Tablet , Notes to Pharmacist: only as ywufgg505784Bhhbgpujxkktyq 1000 MCG/ML Solution inject 1000 mg subcutaneously once a week Cyanocobalamin 1000 MCG/ML Solution inject 1000 mg subcutaneously once a week 030013Ytlwzdpbmtrdad 50 MG Tablet 2 tablets Orally Once a day , Notes to Pharmacist: one dailySpironolactone 50 MG Tablet 2 tablets Orally Once a day , Notes to Pharmacist: one jqicn043375Pqkmkkiuu 100 MCG Tablet 1 tab(s) orally Once a day Synthroid 100 MCG Tablet 1 tab(s) orally Once a day 936807Kjxame Ergocalciferol 1.25 MG (29910 UT) Capsule 1 capsule Orally weekly Taking [...] Dumas MD on 05/17/2025 at 09:49 AM LOAN ADVISER Sign off status: Pending * Provider: Antonia Dumas MD Date: 02/03/2025 Generated for Tab cuello/Gerson/Jia on: 05/17/2025 09:49 AM LOAN ADVISER
--- OUTSIDE RECORDS SUMMARY | 2025-05-17 09:49 | XMS_ITS | Patient Health Record ---
Author Organization [facility] Address [address] [place] [id number] Phone [phone] Care Team Providers Care Ground Services Instructor Name Role Phone Antonia Dumas MD Unavailable [phone] Allergies No Known Allergies Results Component Value Reference Range Flag Notes CORTISOL, TOTAL (367) Order date: 09/01/2024 Reviewed date:09/05/2024 06:04:07 PM Interpretation: Performing Lab:DANIEL [facility]-[id number] [place], OmrqiqIC[address] Eva Villa MD Notes/Report: FASTING: YES FASTING:YES CORTISOL, TOTAL 1.4 L Reference Range: For 8 a.m.(7-9 a.m.) Specimen: 4.0-22.0 Reference Range: For 4 p.m.(3-5 p.m.) Specimen: 3.0-17.0 * Please interpret above results accordingly * DEXAMETHASONE ([id number]) Order date: 09/01/2024 Reviewed date:09/13/2024 11:14:08 PM Interpretation: Performing Lab:MICHAEL [facility] [address] GreenwoodExmrqcyoheEU[address] Iliana Howell MD,PhD,BEN Notes/Report: FASTING: YES FASTING:YES DEXAMETHASONE 448 Reference Ranges for Dexamethasone: Baseline: Less than 20 ng/dL 1 mg dexamethasone overnight: 180-550 ng/dL (8:00-10:00 AM) This test was developed and its analytical performance characteristics have been determined by [employer]. It has not been cleared or approved by the FDA. This assay has been validated pursuant to the CLIA regulations and is used for clinical purposes. CORTISOL, LC/MS, SALIVA, 2 S AMPLES ([id number]) Order date: 10/19/2024 Reviewed date:11/08/2024 09:13:18 PM Interpretation: Performing Lab:EZ, [facility],[address] [facility] Iliana Howell MD,PhD,BEN Notes/Report: URINE VOLUME: SPLIT 09/30/2024 FROM [id number] DRAW DATE 1 10/18/2024 DRAW TIME 1 11:00 PM CORTISOL, SALIVA SAMPLE 1 <0.03 8-10 AM: 0.04-0.56 mcg/dL noon-2 PM: < OR = 0.21 mcg/dL 4-6 PM: < OR = 0.15 mcg/dL 10 PM-1 AM: < OR = 0.09 mcg/dL This test was developed and its analytical performance characteristics have been determined by [employer]. It has not been cleared or approved [...] analytical performance characteristics have been determined by [employer]. It has not been cleared or approved by the FDA. This assay has been validated pursuant to the CLIA regulations and is used for clinical purposes. CORTISOL, FREE, 24 HOUR URIN E (68269) Order date: 10/19/2024 Reviewed date:10/31/2024 09:09:14 PM Interpretation: Performing Lab:EZ, [facility] [employer] [facility]/[facility] [facility] Iliana Howell MD,PhD,BEN Notes/Report: URINE VOLUME: SPLIT 09/30/2024 FROM [id number] TOTAL VOLUME 1999 CORTISOL, FREE, URINE 16.5 4.0-50.0 mcg/24 h CORTISOL, FREE, URINE 10.3 Reference Range: ADULTS: 3.1-42.3 CREATININE, URINE 1.60 0.50-2.15 g/24 h It has not been cleared or approved by the FDA. This assay has been validated pursuant to the CLIA regulations and is used for clinical purposes. This test was developed and its analytical performance characteristics have been determined by [employer]. .CBC (INCLUDES DIFF/PLT) (63 99) Order date: 07/12/2024 Reviewed date:07/13/2024 01:33:24 PM Interpretation: Performing Lab:DANIEL [facility]-Dqtcoc78860 [place], WctpunOZ[address] Eva Villa MD Notes/Report: FASTING:YES FASTING: YES [...] 10.9 7.5-12.5 fL N ABSOLUTE NEUTROPHILS 3585 6622-9189 cells/uL N ABSOLUTE LYMPHOCYTES 3240 850-3900 cells/uL N ABSOLUTE MONOCYTES 420 200-950 cells/uL N ABSOLUTE EOSINOPHILS 218 15-500 cells/uL N ABSOLUTE BASOPHILS 38 0-200 cells/uL N NEUTROPHILS 47.8 N LYMPHOCYTES 43.2 N MONOCYTES 5.6 N EOSINOPHILS 2.9 N BASOPHILS 0.5 N ACTH, PLASMA (211) Order date: 07/12/2024 Reviewed date:07/15/2024 07:36:34 PM Interpretation: Performing Lab:Siria [facility]/Leena Reyes [id number] [facility] [place] , UqdimlvwzSX[address] Aidan Colin M.D.,PhD Notes/Report: FASTING:YES FASTING: YES ACTH, PLASMA 25 6-50 pg/mL Reference range applies only to specimens collected between 7am-10am. IRON AND TOTAL IRON BINDING CAPACITY (7573) Order date: 07/12/2024 Reviewed date:07/13/2024 01:33:24 PM Interpretation: Performing Lab:Siria SANCHEZ-Cteqlc95673 Gil DeyaKS[address] Eva Villa MD Notes/Report: FASTING: YES FASTING:YES IRON, TOTAL 81 40-190 mcg/dL N IRON BINDING CAPACITY 366 250-450 mc g/dL (calc) N % SATURATION 22 16-45 % (calc) N .COMPREHENSIVE METABOLIC DOMINGUEZ EL (93391) [facility] Order date: 07/12/2024 Reviewed date:07/13/2024 01:33:24 PM Interpretation: Performing Lab:Siria SANCHEZexa10101 Gil DeyaKS[address] Eva Villa MD Notes/Report: FASTING:YES [...] U/L N ALT 40 6-29 U/L H .HEMOGLOBIN A1c (496) Order date: 07/12/2024 Reviewed date:07/13/2024 01:33:24 PM Interpretation: Performing Lab:[facility] Center[facility]gdmh28802 [facility] Lul Guevara LmsknbgAG[address] Eva Villa Notes/Report: FASTING: YES FASTING:YES HEMOGLOBIN A1c 5.6 <5.7 % of total [...] diagnosis of diabetes in children. According to [place] [employer] (ADA) guidelines, hemoglobin A1c <7.0% represents optimal control in non- diabetic patients. Different metrics may apply to specific patient populations. Standards of Medical Care in Diabetes(ADA). DHEA SULFATE (402) Order date: 07/12/2024 Reviewed date:07/13/2024 01:33:24 PM Interpretation: Performing Lab:Siria SANCHEZa10101 Gil DeyaKS[address] Eva Villa MD Notes/Report: FASTING:YES FASTING: YES DHEA SULFATE 72 19-237 mcg/dL N .VITAMIN B12 (927) Order date: 07/12/2024 Reviewed date:07/13/2024 01:33:24 PM Interpretation: Performing Lab:Siria SANCHEZa10101 Gil DeyaKS[address] Eva Villa MD Notes/Report: FASTING:YES FASTING: YES VITAMIN B12 161 691-8269 pg/mL N T4, FREE (866) Order date: 07/12/2024 Reviewed date:07/13/2024 01:33:24 PM Interpretation: Performing Lab:[address], VticmmJJ[address] Eva Villa MD Notes/Report: FASTING:YES FASTING: YES T4, FREE 1.4 0.8-1.8 ng/dL N CORTISOL, TOTAL (367) Order date: 07/12/2024 Reviewed date:07/13/2024 01:33:24 PM Interpretation: Performing Lab:Siria SANCHEZ LenexaKS[address] Eva Villa MD Notes/Report: FASTING: YES FASTING:YES CORTISOL, TOTAL 21.5 N Reference Range: For 4 p.m.(3-5 p.m.) Specimen: 3.0-17.0 * Please interpret above results accordingly * Reference Range: For 8 a.m.(7-9 a.m.) Specimen: 4.0-22.0 TSH (899) Order date: 07/12/2024 Reviewed date:07/13/2024 01:33:24 PM Interpretation: Performing Lab:Siria SANCHEZa10101 [address] [place], YktqpyHS[address] Eva Villa MD Notes/Report: FASTING:YES FASTING: YES TSH 4.45 N First trimester 0.26-2.66 Second trimester 0.55-2.73 Third trimester 0.43-2.91 Reference Range > or = 20 Years 0.40-4.50 Ranges .VITAMIN D,25-OH,TOTAL,IA (1 7306) Order date: 07/12/2024 Reviewed date:07/13/2024 01:33:24 PM Interpretation: Performing Lab:Siria SANCHEZa1Gil DuranaKS[address] Eva Villa MD Notes/Report: FASTING:YES FASTING: YES VITAMIN D,25-OH,TOTAL,IA 21 30-100 ng/mL L educational purposes only.) Vitamin D Status 25-OH Vitamin D: Deficiency: <20 ng/mL Insufficiency: 20 - 29 ng/mL Optimal: > or = 30 ng/mL For 25-OH Vitamin D testing on patients on D2-supplementation and patients for whom quantitation of D2 and D3 fractions is required, the QuestAssureD(TM) 25-OH VIT D, (D2,D3), LC/MS/MS is recommended: order code 39073 (patients >2yrs). See Note 1 Note 1 For additional information, please refer to [email or web address] (This link is being provided for informational/ MAGNESIUM, RBC (623) Order date: 07/12/2024 Reviewed date:07/17/2024 08:45:38 AM Interpretation: Performing Lab:[facility]-[address] [address], [address], QxcbivqgtdRI[address] Meche Gonzalez MD,PhD Notes/Report: FASTING:YES FASTING: YES MAGNESIUM, RBC 5.9 4.0-6.4 mg/dL (Note) This test was developed and its analytical performance characteristics have been determined by [employer]. It has not been cleared or approved by the FDA. This assay has been validated pursuant to the CLIA regulations and is used for clinical purposes. [facility] [address] [address],[address] [facility] [address] Meche Gonzalez MD, PhD .CBC (INCLUDES DIFF/PLT) (63 99) Order date: 09/30/2024 Reviewed date:10/02/2024 06:29:32 PM Interpretation: Performing Lab:Siria [facility]-Gpfkow[address] [facility], PjeskuXZ[address] Eva Villa MD Notes/Report: FASTING:YES COLLECTION KIT GIVEN TO PATIENT. PATIENT ADVISED TO RETURN. URINE VOLUME: 2000 FASTING: YES WHITE BLOOD CELL COUNT 6.6 [...] 10.2 7.5-12.5 fL N ABSOLUTE NEUTROPHILS 3406 3868-2662 cells/uL N ABSOLUTE LYMPHOCYTES 2581 850-3900 cells/uL N ABSOLUTE MONOCYTES 403 200-950 cells/uL N ABSOLUTE EOSINOPHILS 178 15-500 cells/uL N ABSOLUTE BASOPHILS 33 0-200 cells/uL N NEUTROPHILS 51.6 N LYMPHOCYTES 39.1 N MONOCYTES 6.1 N EOSINOPHILS 2.7 N BASOPHILS 0.5 N DHEA SULFATE (402) Order date: 09/30/2024 Reviewed date:10/02/2024 06:29:32 PM Interpretation: Performing Lab:Siria SANC[facility]-Woepnh06333 [place], TtdxdnIN[address] Eva Villa MD Notes/Report: FASTING:YES COLLECTION KIT GIVEN TO PATIENT. PATIENT ADVISED TO RETURN. URINE VOLUME: 1999 FASTING: YES DHEA SULFATE 54 19-237 mcg/dL N T4, FREE (866) Order date: 09/30/2024 Reviewed date:10/02/2024 06:29:32 PM Interpretation: Performing Lab:Siria SANCHEZ-Vewlxa37828 [address] [place], SodztqFT[address] Eva Villa MD Notes/Report: FASTING:YES COLLECTION KIT GIVEN TO PATIENT. PATIENT ADVISED TO RETURN. URINE VOLUME: 1999 FASTING: YES T4, FREE 1.7 0.8-1.8 ng/dL N TSH (899) Order date: 09/30/2024 Reviewed date:10/02/2024 06:29:32 PM Interpretation: Performing Lab:Siria SANCHEZ-Ekblod42782 [place], ThnzagQF[address] Eva Villa MD Notes/Report: FASTING:YES COLLECTION KIT GIVEN TO PATIENT. PATIENT ADVISED TO RETURN. URINE VOLUME: 1999 FASTING: YES TSH 4.30 N Reference Range > or = 20 Years 0.40-4.50 Ranges First trimester 0.26-2.66 Second trimester 0.55-2.73 Third trimester 0.43-2.91 T3, FREE (72877) Order date: 09/30/2024 Reviewed date:10/02/2024 06:29:32 PM Interpretation: Performing Lab:Siria SANCHEZ-Ahkrph00074 [place], HzqtveDX[address] Eva Villa MD Notes/Report: FASTING:YES COLLECTION KIT GIVEN TO PATIENT. PATIENT ADVISED TO RETURN. URINE VOLUME: 1999 FASTING: YES T3, FREE 3.5 2.3-4.2 pg/mL N ACTH, PLASMA (211) Order date: 09/30/2024 Reviewed date:10/10/2024 05:26:50 PM Interpretation: Performing Lab:Siria COULTER/Leena Reyes [id number] [facility] [place] , HeidnaorhHD[address] Aidan Colin M.D.,PhD Notes/Report: FASTING:YES COLLECTION KIT GIVEN TO PATIENT. PATIENT ADVISED TO RETURN. URINE VOLUME: 1999 FASTING: YES ACTH, PLASMA 10 6-50 pg/mL Reference range applies only to specimens collected between 7am-10am. .COMPREHENSIVE METABOLIC DOMINGUEZ EL (92307) CMP Order date: 09/30/2024 Reviewed date:10/02/2024 06:29:32 PM Interpretation: Performing Lab:Siria SANCHEZ-Kasvlo98697 [place], JeyzppRW[address] Eva Villa MD Notes/Report: FASTING:YES COLLECTION KIT [...] U/L N ALT 23 6-29 U/L N Reason For Referral No Information Medications Medication SIG (Take, Route, Frequency, Duration) Notes Start Date End Date Diagnosis (ICD Code) Status Wegovy 0.5 MG/0.5ML Solution Auto-injector 0.5 mL Subcutaneous once a week; Duration: 5 Fatty liver (ICD_10 - K76.0) Active Synthroid 100 MCG Tablet 1 tablet in the morning on an empty stomach Orally Once a day; Duration: 5 Hypothyroidism, unspecified (ICD_10 - E03.9) Active dexAMETHasone 1 MG Tablet 1 tab(s) orally once at 10 pm night before 8 am cortisol; Duration: 4 Obesity, unspecified (ICD_10 - E66.9) Active Litfulo 50 MG Capsule ; Duration: 28 Days Active Wegovy 0.25 MG/0.5ML Solution Auto-injector 0.5 mL Subcutaneous weekly; Duration: 30 5 Fatty liver (ICD_10 - K76.0) Active Spironolactone 50 MG Tablet TAKE 2 TABLETS BY MOUTH ONCE DAILY; Duration: 90 Active Ezetimibe 10 MG Tablet ; Duration: 90 Days Active ALPRAZolam 0.5 MG Tablet ; Duration: 90 Days only as needed Active Pregabalin 100 MG Capsule 1 capsule Orally Once a day twice daily Active Ondansetron HCl 4 MG Tablet 1 tab(s) orally twice daily as needed for nausea; Duration: 4 Nausea (ICD_10 - R11.0) Active dexAMETHasone 1 MG Tablet 1 tablet Orally at 10 pm night before 8 am cortisol; Duration: 5 Insomnia, unspecified type (ICD_10 - G47.00) Active Synthroid 100 MCG Tablet 1 tab(s) orally Once a day; Duration: 90 days 4 Hypothyroidism, unspecified (ICD_10 - E03.9) Active Cyanocobalamin 1000 MCG/ML Solution inject 1 mL subcutaneously once a week; Duration: 90 days 4 Vitamin B12 deficiency anemia, unspecified (ICD_10 - D51.9) Active Ergocalciferol 1.25 MG (83233 UT) Capsule 1 capsule Orally weekly; Duration: 90 days 5 Vitamin D deficiency (ICD_10 - E55.9) Active [employer] 28G 1inch 1mL syringe to inject vitamin b12 once weekly; Duration: 90 days 5 Active Social History Sex Observation Social History Observation Description Sex Observation Female Social History Additional Details Category Social Info Options Details Migrated Social History Migrated Social History (Alcohol:):yes (Smoking:):no Problems Problem Type SNOMED Code ICD Code Dates Problem Status W/U Status Risk Notes Problem Hypothyroidism (34298885) Hypothyroidism, unspecified (E03.9) Added On:2023 Active confirmed Problem Autoimmune thyroiditis (75496088) Autoimmune thyroiditis (E06.3) Added On:2023 Active confirmed Problem Disorder of adrenal gland (11878657) Disorder of adrenal gland, 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) Added On:2024 Active confirmed Problem Polycystic ovary syndrome (disorder) (967421147) Polycystic ovarian syndrome (E28.2) Added On:2023 Active confirmed Problem Morbid obesity (disorder) (854360359) Morbid (severe) obesity due to excess calories (E66.01) Added On:2023 Active confirmed Problem Obesity due to excess calories (355160777) Other obesity due to excess calories (E66.09) Added On:2023 Active confirmed Problem Obesity (399477891) Obesity, unspecified (E66.9) Added On:2023 Active confirmed Problem Generalized anxiety disorder (55686329) Generalized anxiety disorder (F41.1) Added On:2023 Active confirmed Problem Fatty liver (170525012) Fatty (change of) liver, not elsewhere classified (K76.0) Added On:2023 Active confirmed Problem Intestinal malabsorption (793226284) Intestinal malabsorption, 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) Added On:2023 Active confirmed Problem Alopecia areata (98577402) Alopecia areata, unspecified (L63.9) Added On:2023 Active confirmed Problem Prediabetes (823582459) Prediabetes (R73.03) Added On:2024 Active confirmed Problem Insomnia (502546084) Insomnia, unspecified type (G47.00) Added On:2024 Active confirmed Problem Fatty liver (785741186) Fatty liver (K76.0) Added On:2024 Active confirmed Problem Vitamin D deficiency (13505035) Vitamin D deficiency (E55.9) Added On:2024 Active confirmed Problem Hyperlipidemia (73598949) Hyperlipidemia, unspecified (E78.5) Added On:2023 Active confirmed Vital Signs Vital Sign Value Notes Appt Date Heart Rate 82 /min 04/18/2025 Respiratory Rate 12 /min 04/18/2025 Height-cm 160.02 cm 04/18/2025 Blood pressure diastolic 70 mm Hg Weight-kg 97.07 kg 04/18/2025 Height 63 in 04/18/2025 Blood pressure systolic 120 mm Hg 03/27 Weight 214 lbs 04/18/2025 BMI 37.9 kg/m2 04/18/2025 Encounters Date Time Type Facility Location Provider Diagnosis 03:30 PM Office Visit, Est Pt., Level 4 (09206) [facility] Dr[facility] Dumas [address] [place] [address] Antonia Dumas Hypothyroidism, unspecified E03.9 ; Polycystic ovarian syndrome E28.2 ; Vitamin D deficiency E55.9 ; Generalized anxiety disorder F41.1 and Insomnia, unspecified type G47.00 5 10:40 AM Office Visit, Est Pt., Level 4 (05146) [facility] Dr. Dumas [address] [place] [address] Antonia Dumas Autoimmune thyroiditis E06.3 ; Hypothyroidism, unspecified E03.9 ; Other fatigue R53.83 ; Prediabetes R73.03 and Fatty liver K76.0 5 01:00 PM Office Visit, Est Pt., Level 4 (82374) [facility] Dr[facility] Dumas [address] [place] [address] Antonia Dumas Hypothyroidism, unspecified E03.9 ; Obesity, unspecified E66.9 ; Polycystic ovarian syndrome E28.2 ; Autoimmune thyroiditis E06.3 and Disorder of adrenal gland, unspecified E27.9 5 10:43 AM Telephone Encounter [facility] Dumas [address] [place] [address] Antonia Dumas Polycystic ovarian syndrome E28.2 5 10:42 AM Telephone Encounter [facility] Dumas [address] [place] [address] Antonia Dumas 5 01:07 PM Telephone Encounter [facility] Dumas [address] [place] [address] Antonia Dumas 5 11:13 AM Telephone Encounter [facility] Dumas [address] [place] [address] Antonia Dumas Vitamin B12 deficiency anemia, unspecified D51.9 5 03:22 PM Telephone Encounter [facility] Dumas [address] [place] [address] Antonia Dumas 5 08:40 AM Telephone Encounter [facility] [address] [address] Antonia Dumas Hypothyroidism, unspecified E03.9 5 02:10 PM Telephone Encounter [facility] Dumas [address] [place] [address] Antonia Dumas 5 02:36 PM Telephone Encounter [facility] Dr[facility] Dumas [address] [place] [address] Antonia Dumas 5 01:40 PM Telephone Encounter [facility] [address] [address] Antonia Dumas Disorder of adrenal gland, unspecified E27.9 5 04:26 PM Telephone Encounter [facility] Dumas [address] [place] [address] Antonia Dumas 5 04:23 PM Telephone Encounter [facility] Dr[facility] Dumas [address] [place] [address] Antonia Dumas 5 01:23 PM Telephone Encounter [facility] Dr[facility] Dumas [address] [place] [address] Antonia Dumas Hypothyroidism, unspecified E03.9 Assessments Encounter Date Diagnosis (ICD Code) Assessment Notes Treatment Notes Section Notes 06/07/2024 Hypothyroidism, unspecified (ICD-10 - E03.9) 11/08/2024 Hypothyroidism, unspecified (ICD-10 - E03.9) 11/08/2024 Obesity, unspecified (ICD-10 - E66.9) 03/03/2025 Vitamin B12 deficiency anemia, unspecified (ICD-10 - D51.9) 04/18/2025 Hypothyroidism, unspecified (ICD-10 - E03.9) 04/18/2025 Autoimmune thyroiditis (ICD-10 - E06.3) 01/18/2025 Hypothyroidism, unspecified (ICD-10 - E03.9) 08/16/2024 Hypothyroidism, unspecified (ICD-10 - E03.9) 08/16/2024 Polycystic ovarian syndrome (ICD-10 - E28.2) 06/03/2024 Polycystic ovarian syndrome (ICD-10 - E28.2) 11/08/2024 Disorder of adrenal gland, unspecified (ICD-10 - E27.9) 11/08/2024 Polycystic ovarian syndrome (ICD-10 - E28.2) 08/16/2024 Vitamin D deficiency (ICD-10 - E55.9) 04/18/2025 Other fatigue (ICD-10 - R53.83) 11/08/2024 Autoimmune thyroiditis (ICD-10 - E06.3) 04/18/2025 Prediabetes (ICD-10 - R73.03) 08/16/2024 Generalized anxiety disorder (ICD-10 - F41.1) 08/16/2024 Insomnia, unspecified type (ICD-10 - G47.00) 04/18/2025 Fatty liver (ICD-10 - K76.0) 11/08/2024 Disorder of adrenal gland, unspecified (ICD-10 - E27.9) 08/16/2024 Other Assessment and Plan: 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 Vitamin D Deficiency- Increase vitamin D supplementation to 5000 IU (25 mcg) daily- Alternatively, prescribe ergocalciferol (vitamin D2) weekly- Send prescription to [facility] in [place] 3. Cardiac Symptoms- Refer to glue clamp operator Dr. Genny Tony in [place] with [facility]- Recommend Holter monitor to check [...] examination and/or evaluation, counseling and educating the patient/family/caregiv er, ordering medications, tests, or procedures, referring and communicating with other health insurance healthcare representative, documenting clinical information in the electronic or other health record, independently interpreting results and communicating results to the patient/family/caregiv er and care coordinating patient plan. Patient alert [...] Order CT [facility] adrenal glands [facility] in [place]- Consider initiating treatment for hypercortisolism if sleep [...] examination and/or evaluation, counseling and educating the patient/family/caregiv er, ordering medications, tests, or procedures, referring and communicating with other health insurance healthcare representative, documenting clinical information in the electronic or other health record, independently interpreting results and communicating results to the patient/family/caregiv er and care coordinating patient plan. Patient alert [...] were discussed and all questions were answered. 04/18/2025 Frankie Andrew is an endocrinology patient with subclinical thyroid levels, recent Achilles surgery for Pablo's deformity, fatty liver, and history of ineffective weight management medications. Subclinical thyroid dysfunctionAssessment: Patient has subclinical thyroid levels that are not reaching true positive range, making insurance coverage for treatment challenging. Currently on Synthroid therapy with need for ongoing monitoring.Plan:- Refill Synthroid 100 mcg- Consider repeat dexamethasone suppression test if patient remains off hormones- Follow-up after New Year in May Fatty liver diseaseAssessment: Fatty liver identified on ultrasound at [facility] last year with recommendation for weight loss. Previous weight management attempts with Ozempic were ineffective and caused heartburn. Insurance previously denied Wegovy coverage.Plan:- Retry Wegovy authorization using liver ultrasound report as justification- Continue weight management efforts Recent Achilles surgery recoveryAssessment: Patient underwent Achilles surgery last Friday for bone spur causing tendon tearing and Pablo's deformity. Procedure included heel bone reshaping, Achilles tendon lengthening, and plantar fasciitis repair. Currently has limited mobility due to foot pain affecting activity level.Plan:- Continue recovery as directed by subway train driver Laboratory monitoring needsAssessment: Recent preoperative labs showed normalized ALT (previously elevated), stable weight around 214 pounds, and good blood pressure control in 120s/70s. Glucose was 81, ALT 19, AST 15. No recent A1C since June. Normal cortisol studies in September with salivary cortisol less than 0.03 and urine cortisol 16.5. Normal FSH and LH from March 19.Plan:- Order A1C to check for prediabetes- Order thyroid function tests- Consider waiting until May when insurance changes to [employer] for lab work if [employer] coverage is difficult- Labs can be completed in April if needed Spent 25 minutes preparing to see the patient (ex review of tests/chart), obtaining and / or reviewing separately obtained history, performing a medically appropriate examination and/or evaluation, counseling and educating the patient/family/caregiv er, ordering medications, tests, or procedures, referring and communicating with other health insurance healthcare representative, documenting clinical information in the electronic or other health record, independently interpreting results and communicating results to the patient/family/caregiv er and care coordinating patient plan. Patient alert and oriented x 4 and aware of discussion noted above and in agreeance to plan in management of hypothyroidism, fatty liver ds, weight management and concern for hyperglycemia and concern for high cortisol. Due to the nature of telemedicine, the [...] Name Order Date *CT ABDOMEN W/O CONTRAST 22990 5 *CT ABDOMEN W/O CONTRAST 53272 5 COMPREHENSIVE METABOLIC PANEL 07/10/2023 T3, FREE 07/10/2023 T4, FREE 07/10/2023 TSH 07/10/2023 VITAMIN B12 07/10/2023 -PANCREATIC ELASTASE 3878 07/10/2023 Insurance Providers Payer Name Payer Address Payer Phone Subscriber Number Group Number Insured Name Patient Relationship to Insured Coverage Start Date Coverage End Date [facility] [address] [address] [place] [address] [phone] [id number] Lorrie Strong Self - patient is the insured Medical (General) History Medical History History ICD Code Autoimmune thyroiditis E06.3 Hyperlipidemia, unspecified E78.5 Alopecia areata, unspecified L63.9
--- OUTSIDE RECORDS SUMMARY | 2025-05-17 09:49 | XMS_ITS | Clinical Summary ---
Author Organization [facility] Address [address] [place] [address] Care Team Providers Care Press Catcher Name Role Phone Shellie Blanco MD Primary Care Provider [phone] Source Comments [facility],non-owned Affiliates and Associated Physician Practices is amultiple site organization consisting of ambulatory clinics and hospital sitesin [place] and [place]. This disclosure is being madepursuant to the Care Everywhere program and may not contain all information available regarding this patient. Last updated 18.[facility] Allergies Active Allergy Reactions Criticality Noted Date [...] (Nasacort Allergy 24HR) 55 MCG/ACT nasal inhaler Ilion 2 (two) sprays into each nostril once [...] on file Legal Sex Female 6:26 PM TRAIN ANNOUNCER Gender Identity Not on file Sexual Orientation Not on file Last Filed Vital Signs Vital Sign Reading Time Taken Comments Blood Pressure 130/84 12/04/2023 1:14 PM CDT Pulse 92 12/04/2023 1:14 PM CDT Temperature 36.4 C (97.5 F) 06/27/2023 9:06 AM TRAIN ANNOUNCER Respiratory Rate 18 02/17/2023 10:0 7 AM CDT Oxygen Saturation 98% 07/24/2023 3:27 PM TRAIN ANNOUNCER Inhaled Oxygen Concentration - - Weight 102.4 [...] Management General On track( 024 3:33 PM TRAIN ANNOUNCER) Gayle Martinez, RN Note: Expected end date: Ongoing Interventions: Take all medications as prescribed Let your doctor know right away about any changes in your medications Make sure to request a refill of your medication at least one week prior to your last dose Insurance [facility] Care Teams Press Catcher Relationship Specialty Start Date End Date Shellie Blanco MD [address] [place] [address] PCP - General Family Medicine 07/24/23
--- OUTSIDE RECORDS SUMMARY | 2025-05-17 09:49 | XMS_ITS | Patient Health Record ---
Author Organization [facility] [employer] [place] ([address]) Address [address] [place] [address] Care Team Providers Care Afternoon Babysitter Name Role Phone Shellie Blanco Primary Care Provider UnavailMira Ortega Unavailable [phone] Aidan Flannery Unavailable [phone] Allergies Allergen (clinical drug ingredient) Drug/Non Drug Allergy documented on EMR Reaction Allergy Type Onset Date Status ZPAC (uncoded) GI issues/pain Allergy Active Reason For Referral No Information Medications Medication SIG (Take, Route, Frequency, Duration) Notes Start Date End Date Status Nasacort Allergy 24HR 55 MCG/ACT 2 sprays, each nostril intranasally, avoid nasal septum daily; Duration: 30 days Not-Taking SIT (Traditional) variable - see record per schedule subcutaneous per schedule; Duration: 999 days Active Litfulo 50 MG 1 cap(s) orally once a day 04/15/2023 Not-Taking Albuterol Sulfate HFA 108 (90 Base) MCG/ACT 2 puffs as needed Inhalation every 4 hrs; Duration: 30 days Active Rosuvastatin Calcium 20 MG 1 tab(s) orally once a day; Duration: 30 day(s) 04/15/2023 Not-Taking Triamcinolone Acetonide 0.1 % 1 application Externally Twice a day; Duration: 30 days as needed after SCIT Active Venlafaxine HCl ER 75 MG 1 tab(s) orally once a day; Duration: 30 day(s) 04/15/2023 Not-Taking Montelukast Sodium 10 MG TAKE 1 TABLET BY MOUTH DAILY Orally Once a day; Duration: 90 days Active Olopatadine HCl 0.6 % 2 sprays in each nostril Nasally Twice a day; Duration: 30 days 02/10/2025 Active NASACORT AQ 55 mcg/inh 2 sprays, each nostril intranasally, avoid nasal septum daily; Duration: 30 days Active ROSUVASTATIN 20 mg 1 tab(s) orally once a day; Duration: 30 day(s) 04/15/2023 Not-Taking NASAL WASHES N/A as directed intranasally as needed; Duration: 30 days Active VITAMIN B12 1000 mcg 1 tab(s) orally once a day; Duration: 30 day(s) 04/15/2023 Not-Taking EPIPEN 2-JAROCHO 0.3 mg as directed intramuscularly once; Duration: 1 days Active SYNTHROID 100 mcg (0.1 mg) 1 tab(s) orally once a day; Duration: 30 day(s) 04/15/2023 Not-Taking VENLAFAXINE 75 mg 1 tab(s) orally once a day; Duration: 30 day(s) 04/15/2023 Not-Taking guanFACINE HCl 2 MG 1 tablet at bedtime Orally Once a day Active Zetia 10 MG 1 tablet Orally Once a day Active MONTELUKAST SODIUM 10 mg 1 tab(s) orally once a day; Duration: 90 days Not-Taking LITFULO 50 mg 1 cap(s) orally once a day 04/15/2023 Not-Taking FAMOTIDINE 40 mg 1 tab(s) orally 30 mins prior to SCIT; Duration: 30 days Active ELETRIPTAN 40 MG DIRECTED ORALLY *Please revi ew for potential replacement for e-prescription and drug interaction check* 04/15/2023 Active Synthroid 100 MCG 1 tab(s) orally once a day; Duration: 30 day(s) 04/15/2023 Active Montelukast Sodium 10 MG TAKE 1 TABLET BY MOUTH DAILY Orally Once a day; Duration: 90 days needs follow-up Active NASACORT AQ 55 mcg/inh 2 sprays, each nostril intranasally, avoid nasal septum daily; Duration: 30 days Not-Taking Cetirizine HCl 10 MG 1 tab(s) orally once a day Active EpiPen 2-Jarocho 0.3 MG/0.3ML as directed intramuscularly once; Duration: 1 days Active SIT (CLUSTER) VARIABLE PER SCHEDULE SC PER SCHEDULE; Duration: 1 DAYS *Please review for potential replacement for e-prescription and drug interaction check* Not-Taking B-12 1000 MCG 1 tab(s) orally once a day; Duration: 30 day(s) 04/15/2023 Active FAMOTIDINE 40 mg 1 tab(s) orally 30 mins prior to SCIT; Duration: 30 days Not-Taking Famotidine 40 mg 1 tab(s) orally 30 mins prior to SCIT; Duration: 30 days Active CETIRIZINE HYDROCHLORIDE 10 mg 1 tab(s) orally once a day Active Social History Tobacco Use: Social History [...] Status W/U Status Risk Notes Problem Hyperlipidemia (27287679) Hyperlipidemia, unspecified (E78.5) Active confirmed Problem Chronic migraine without aura, non-refractory (disorder) (195510718365521) Migraine without aura, not intractable, without status migrainosus (G43.009) Active confirmed Problem Migraine with aura (8371138) Migraine with aura, not intractable, without status migrainosus (G43.109) Active confirmed Problem Chronic migraine without aura, non-intractable (268213836146680) Chronic migraine without aura, not intractable, without status migrainosus (G43.709) Active confirmed Problem Migraine without aura, not refractory (disorder) (253623853) Migraine, unspecified, not intractable, without status migrainosus (G43.909) Active confirmed Problem Chronic allergic conjunctivitis (38626871) Other chronic allergic conjunctivitis (H10.45) Active confirmed Problem Allergic rhinitis caused by pollen (disorder) (63580471) Allergic rhinitis due to pollen (J30.1) Active confirmed Problem Allergic rhinitis (60674244) Other allergic rhinitis (J30.89) Active confirmed Problem Alopecia areata (03183417) Alopecia areata, unspecified (L63.9) Active confirmed Problem Allergic rhinitis caused by animal hair and dander (147747357742168) Allergic rhinitis due to animal (cat) (dog) hair and dander (J30.81) Active confirmed Problem Urticaria (801125696) Other urticaria (L50.8) Active confirmed Problem Wheezing (20150762) Wheezing (R06.2) Active confirmed Vital Signs Respiratory Rate 17 /min 02/10/2025 Oximetry 99 % 02/10/2025 Blood pressure diastolic 74 mm Hg 02/10/2025 Height 64 in 02/10/2025 Blood pressure systolic 111 mm Hg 02/10/2025 Weight 217.6 lbs 02/10/2025 BMI 37.35 kg/m2 02/10/2025 Encounters Encounter Location Date Provider Diagnosis [facility] [address] [place] [phone] 10/20/2024 Aidan Flannery Allergic rhinitis du e to pollen J30.1 ; Other allergic rhinitis J30.89 ; Allergic rhinitis due to animal (cat) (dog) hair and dander J30.81 and Other chronic allergic conjunctivitis H10.[address] [phone] 09/15/2024 Aidan Flannery Allergic rhinitis du e to pollen J30.1 ; Other allergic rhinitis J30.89 ; Allergic rhinitis due to animal (cat) (dog) hair and dander J30.81 and Other chronic allergic conjunctivitis H10.45 [facility] [address] [place] [phone] 08/10/2024 Aidan Flannery Allergic rhinitis du e to pollen J30.1 ; Other allergic rhinitis J30.89 ; Allergic rhinitis due to animal (cat) (dog) hair and dander J30.81 and Other chronic allergic conjunctivitis H10.[address] [address] 07/12/2024 Aidan Flannery Allergic rhinitis du e to pollen J30.1 ; Other allergic rhinitis J30.89 ; Allergic rhinitis due to animal (cat) (dog) hair and dander J30.81 and Other chronic allergic conjunctivitis H10.45 [facility] [address] [place] [phone] 06/08/2024 Aidan Flannery Allergic rhinitis du e to pollen J30.1 ; Other allergic rhinitis J30.89 ; Allergic rhinitis due to animal (cat) (dog) hair and dander J30.81 and Other chronic allergic conjunctivitis H10.45 [facility] [address] [place] [phone] 05/24/2024 Aidan Flannery Allergic rhinitis du e to pollen J30.1 ; Other allergic rhinitis J30.89 ; Allergic rhinitis due to animal (cat) (dog) hair and dander J30.81 and Other chronic allergic conjunctivitis H10.45 [facility] [address] [place] [phone] 04/19/2025 Aidan Flannery Allergic rhinitis du e to pollen J30.1 ; Other allergic rhinitis J30.89 ; Allergic rhinitis due to animal (cat) (dog) hair and dander J30.81 and Other chronic allergic conjunctivitis H10.45 [facility] [address] [place] [phone] 03/16/2025 Aidan Flannery Allergic rhinitis du e to pollen J30.1 ; Other allergic rhinitis J30.89 ; Allergic rhinitis due to animal (cat) (dog) hair and dander J30.81 and Other chronic allergic conjunctivitis H10.45 [facility] [address] [place] [phone] 01/13/2025 Aidan Flannery Allergic rhinitis du e to pollen J30.1 ; Other allergic rhinitis J30.89 ; Allergic rhinitis due to animal (cat) (dog) hair and dander J30.81 and Other chronic allergic conjunctivitis H10.45 [facility] [address] [place] [phone] 01/06/2025 Aidan Flannery Allergic rhinitis du e to pollen J30.1 ; Other allergic rhinitis J30.89 ; Allergic rhinitis due to animal (cat) (dog) hair and dander J30.81 and Other chronic allergic conjunctivitis H10.[address] [phone] 12/30/2024 Aidan Flannery Allergic rhinitis du e to pollen J30.1 ; Other allergic rhinitis J30.89 ; Allergic rhinitis due to animal (cat) (dog) hair and dander J30.81 and Other chronic allergic conjunctivitis H10.[address] [phone] 02/10/2025 Mira Phillips Allergic rhinitis du e to pollen J30.1 ; Allergic rhinitis due to animal (cat) (dog) hair and dander J30.81 ; Other allergic rhinitis J30.89 ; Other chronic allergic conjunctivitis H10.45 ; Personal history of anaphylaxis Z87.892 ; Other urticaria L50.8 ; Wheezing R06.2 and Headache, unspecified R51.[address] [phone] 12/08/2024 Aidan Flannery Allergic rhinitis du e to pollen J30.1 ; Other allergic rhinitis J30.89 ; Allergic rhinitis due to animal (cat) (dog) hair and dander J30.81 and Other chronic allergic conjunctivitis H10.45 [facility] [place] [address]) [address] [address] [place] [phone] 03/30/2025 Mira Phillips [place] [address] [phone] 12/13/2024 Mira Phillips Assessments Encounter Date Diagnosis (ICD Code) Assessment Notes Treatment Notes Treatment Clinical Notes Section Notes 05/24/2024 Allergic rhinitis due to pollen (ICD-10 [...] 03/16/2025 Other allergic rhinitis (ICD-10 - J30.89) 04/19/2025 Allergic rhinitis due to pollen (ICD-10 - J30.1) 04/19/2025 Other allergic rhinitis (ICD-10 - J30.89) 04/19/2025 Allergic rhinitis due to animal (cat) (dog) hair and dander (ICD-10 - J30.81) 03/16/2025 Allergic rhinitis due to animal (cat) [...] hair and dander (ICD-10 - J30.81) 05/24/2024 Other chronic allergic conjunctivitis (ICD-10 - [...] Other chronic allergic conjunctivitis (ICD-10 - H10.45) 04/19/2025 Other chronic allergic conjunctivitis (ICD-10 - H10.45) [...] neurology. - Lorrie is now established at [facility] Plan Of Treatment Next Appt Details Provider Name:Mira LakhaniLeon Phillips , 08/04/2025 03:30:00 PM, [address] [facility], [address], [place], [address], Insurance Providers Payer Name Payer Address Payer Phone Subscriber Number Group Number Insured Name Patient Relationship to Insured Coverage Start Date Coverage End Date [facility] [address] [place] [address] [id number] TaeShakaLorrie Self - patient is the insured 3 Medical (General) History Medical History History ICD Code Alopecia areata, unspecified L63.9 Hyperlipidemia, unspecified E78.5 hashimotoa Migraine, unspecified, not intractable, without status migrainosus G43.909 Surgical History Surgery Date(Month/Year) knee scope 2013 Ankle Surgery 2002 carpal tunnel release 2022 Achilles Tendon repair 2023 Hospitalization History Reason Date(Month/Year) childbirth 2016 childbirth 2014
--- OUTSIDE RECORDS SUMMARY | 2025-05-17 09:50 | XMS_ITS | Data Portability ---
Author Organization [facility], Main Office Address [address] [place] [address] Care Team Providers Care Pot Puncher Name Role Phone EDEN LNADA Primary Care Provider Assessment No assessment recorded. Plan of Treatment Reminders Order Date Submit Date Provider Last Modified By Organization Details Last Modified Time Details Appointments None recorded. Lab HbA1c (hemoglobin A1c), blood 2022 023 [facility], [address], [place], [address], 3 13:26:42 insulin, serum 2022 023 [facility] [facility], [address], [place], [address], 3 13:26:39 T3, free, serum or plasma 2022 023 [facility] [facility], [address], [place], [address], 3 13:26:41 TSH + free T4, serum 2022 023 [facility] [facility], [address], [place], [address], 3 13:26:41 CMP, serum or plasma 2022 023 [facility] [facility], [address], [place], [address], 3 13:26:36 vitamin B12 + folate, serum or blood 2022 023 [facility], [address], [place], [address], 3 13:26:40 hepatitis panel (A+B+C), acute, serum 2022 023 [facility] [address], [place], [address], 3 13:26:35 iron + TIBC + ferritin, serum 2022 023 [facility], [facility] [address], [place], [address], 3 13:26:34 mitochondri al Ab, serum 2022 023 [facility], [facility] [address], [place], [address], 3 13:26:39 LESA (antinuclea r antibodies) screen, ifa, serum 2022 023 [facility], [address], [place], [address], 3 13:26:38 liver-kidne y microsome type 1 igg Ab, serum 2022 023 [facility], [facility] [address], [place], [address], 3 13:26:37 Referral None recorded. Procedures None recorded. Surgeries None recorded. Imaging US, liver 2022 023 [facility] (Imaging), [address], [place], [address], 3 11:33:54 Medication Orders metformin ER 500 mg tablet,exte nded release 24 hr 2022 023 [facility], [address], [address], [place], [place], [id number], 3 17:27:37 Ozempic 1 mg/dose (4 mg/3 mL) subcutaneou s pen injector 2022 023 [facility], [address], [address], [place], [place], [id number], 3 17:27:37 Synthroid 100 mcg tablet 2022 023 [facility], [address] [place] [address] Dr, [address], [place], [address], 3 17:27:40 Ozempic 1 mg/dose (4 mg/3 mL) subcutaneou s pen injector 2022 023 [facility], [address] [place] [address], [address], [place], [place], [id number], 3 17:45:36 Patient TargetsNo targets recorded. Patient InstructionsNo instructions recorded. Reason for Referral None Reported. Results Created Date Observation Date Name Description Value Unit Range Abnormal Flag Note LastModifiedBy Organization Detail LastModifiedTime 07/16/19 22 07/18/2021 HEMOG LOBIN A1C hemoglobin A1C 5.3 %_of_ total _HGB <5.7 normal For the purpo se of jaimee hernadez for the prese nce of diabe lisandro: <5.7% Consi stent with the absen ce of diabe lisandro 5.7-6 .4% Consi stent with incre ased risk for diabe lisandro (pred iabet es) > or =6.5% Consi stent with diabe lisandro This assay resul t is consi stent with a decre ased risk of diabe lisandro. Curre ntly, no conse nsus exist s archie beal use of hemog lobin A1c for diagn osis of diabe lisandro in child landy. Accor emigdio to Ameri can Diabe lisandro Assoc iatio n (ADA) guide lines , hemog lobin A1c <7.0% repre sents optim al contr ol in non-p regna nt diabe tic patie nts. Diffe rent metri cs may apply to speci fic patie nt popul ation s. [facility] in Diabe lisandro(A DA). Not Available [facility] [address] [place], [address], 07/18/2021 22:54:08 07/16/19 22 07/18/2021 TSH+F REE T4 TSH 0.90 mIU/L normal Refer ence Range > or = 20 Years 0.40- 4.50 Pregn alo Range s First trime ster 0.26- 2.66 Secon d trime ster 0.55- 2.73 Third trime ster 0.43- 2.91 Not Available [facility] [place] [address] [place], [address], 07/18/2021 22:54:08 07/16/19 22 07/18/2021 TSH+F REE T4 T4, free 1.6 NG/dL 0.8-1. 8 normal Not Available [facility] [address] [address] [place], [address], 07/18/2021 22:54:08 07/16/19 22 07/18/2021 T3, FREE T3, free 3.9 pg/mL 2.3-4. 2 normal Not Available [facility] [address] [place], [address], 07/18/2021 22:54:07 07/16/19 22 07/18/2021 INSUL IN insulin 38.5 uIU/m L high Refer ence Range < or = 19.6 Risk: Optim al < or = 19.6 Moder ate NA High >19.6 Adult cardi ovasc ular event risk categ ory cut point s (opti mal, moder ate, high) are based on [facility] ostic s popul ation data from 05/14 11. This insul in assay shows stron g cross -reac tivit y for some insul in analo gs (lisp ro, aspar t, and glarg ine) and much lower cross -reac tivit y with other s (dete matthew, gluli sine) . Not Available [address], [address], 07/18/2021 22:54:07 07/16/19 22 07/18/2021 DHEA SULFA TE DHEA sulfate 81 mcg/d L 19-237 normal Not Available [address], [address], 07/18/2021 22:54:06 07/16/19 22 07/18/2021 COMPR EHENS CORTES METAB OLIC PANEL glucose 84 mg/dL 65-99 normal Fasti ng refer ence inter nadiya Not Available [address], [address], 07/18/2021 22:54:06 07/16/19 22 07/18/2021 COMPR EHENS CORTES METAB OLIC PANEL urea nitrogen (BUN) 7 mg/dL 7-25 normal Not Available [address], [address], 07/18/2021 22:54:06 07/16/19 22 07/18/2021 COMPR EHENS CORTES METAB OLIC PANEL creatinine 0.67 mg/dL 0.50-1 .10 normal Not Available [address], [address], 07/18/2021 22:54:06 07/16/19 22 07/18/2021 COMPR EHENS CORTES METAB OLIC PANEL eGFR non-afr. chilean 114 mL/mi n/1.7 3m2 > or = 60 normal Not Available [address], [address], 07/18/2021 22:54:06 07/16/19 22 07/18/2021 COMPR EHENS CORTES METAB OLIC PANEL eGFR 132 mL/mi n/1.7 3m2 > or = 60 normal Not Available [address], [address], 07/18/2021 22:54:06 07/16/19 22 07/18/2021 COMPR EHENS CORTES METAB OLIC PANEL BUN/creatini ne ratio not applic able (calc ) 6-22 Not Available [address], [address], 07/18/2021 22:54:06 07/16/19 22 07/18/2021 COMPR EHENS CORTES METAB OLIC PANEL sodium 135 mmol/ L 135-14 6 normal Not Available [address], [address], 07/18/2021 22:54:06 07/16/19 22 07/18/2021 COMPR EHENS CORTES METAB OLIC PANEL potassium 4.6 mmol/ L 3.5-5. 3 normal Not Available [address], [address], 07/18/2021 22:54:06 07/16/19 22 07/18/2021 COMPR EHENS CORTES METAB OLIC PANEL chloride 105 mmol/ L 98-110 normal Not Available [address], [address], 07/18/2021 22:54:06 07/16/19 22 07/18/2021 COMPR EHENS CORTES METAB OLIC PANEL carbon dioxide 23 mmol/ L 20-32 normal Not Available [address], [address], 07/18/2021 22:54:06 07/16/19 22 07/18/2021 COMPR EHENS CORTES METAB OLIC PANEL calcium 9.5 mg/dL 8.6-10 .2 normal Not Available [address], [address], 07/18/2021 22:54:06 07/16/19 22 07/18/2021 COMPR EHENS CORTES METAB OLIC PANEL protein, total 6.7 g/dL 6.1-8. 1 normal Not Available [address], [address], 07/18/2021 22:54:06 07/16/19 22 07/18/2021 COMPR EHENS CORTES METAB OLIC PANEL albumin 4.4 g/dL 3.6-5. 1 normal Not Available [address], [address], 07/18/2021 22:54:06 07/16/19 22 07/18/2021 COMPR EHENS CORTES METAB OLIC PANEL globulin 2.3 g/dL_ (calc ) 1.9-3. 7 normal Not Available [address], [address], 07/18/2021 22:54:06 07/16/19 22 07/18/2021 COMPR EHENS CORTES METAB OLIC PANEL albumin/glob ulin ratio 1.9 (calc ) 1.0-2. 5 normal Not Available [address], [address], 07/18/2021 22:54:06 07/16/19 22 07/18/2021 COMPR EHENS CORTES METAB OLIC PANEL bilirubin, total 0.4 mg/dL 0.2-1. 2 normal Not Available [address] [place], [address], 07/18/2021 22:54:06 07/16/19 22 07/18/2021 COMPR EHENS CORTES METAB OLIC PANEL alkaline phosphatase 55 U/L 31-125 normal Not Available [address] [address] [place], [address], 07/18/2021 22:54:06 07/16/19 22 07/18/2021 COMPR EHENS CORTES METAB OLIC PANEL AST 26 U/L 10-30 normal Not Available [address], [address], 07/18/2021 22:54:06 07/16/19 22 07/18/2021 COMPR EHENS CORTES METAB OLIC PANEL ALT 40 U/L 6-29 high Not Available [address], [address], 07/18/2021 22:54:06 07/16/19 22 07/18/2021 LIPID PANEL , [place] cholesterol, total 184 mg/dL <200 normal Not Available [address], [address], 07/18/2021 22:54:05 07/16/19 22 07/18/2021 LIPID PANEL , [place] HDL cholesterol 44 mg/dL > or = 50 low Not Available [address], [address], 07/18/2021 22:54:05 07/16/19 22 07/18/2021 LIPID PANEL , [place] triglyceride s 279 mg/dL <150 high If a non-f astin g speci men was colle cted, consi jeff repea t trigl yceri de testi ng on a fasti ng speci men if clini funmi indic ated. Felice ruiz et al. J. of Clin. Lipid ol. 2015; 9:129 -169. Not Available [address], [address], 07/18/2021 22:54:05 07/16/19 22 07/18/2021 LIPID PANEL , [place] LDL-choleste rol 100 mg/dL _(lauren c) high Refer ence range : <100 Deanna able range <100 mg/dL for prima ry preve ntion ; <70 mg/dL for patie nts with CHD or diabe tic patie nts with > or = 2 CHD risk facto rs. LDL-C is now calcu lated using the Carey n-Hop kins elvau shelia n, which is a valid ated novel cliff valentin than the Fried alverto equat ion in the estim ation of LDL-C . Carey vela SS et al. KATALINA. 2013; 310(1 9): 2061- 2068 (http ://ed ucati on.Qu Filomena TheCreator.ME. com/f aq/FA Q164) Not Available [address] [address] [place], [address], 07/18/2021 22:54:05 07/16/19 22 07/18/2021 LIPID PANEL , [place] chol/HDLC ratio 4.2 (calc ) <5.0 normal Not Available [address] [address] [place], [address], 07/18/2021 22:54:05 07/16/19 22 07/18/2021 LIPID PANEL , [place] non HDL cholesterol 140 mg/dL _(lauren c) <130 high For patie nts with diabe lisandro plus 1 major ASCVD risk facto r, treat ing to a non-H DL-C goal of <100 mg/dL (LDL- C of <70 mg/dL ) is consi ren page optio n. Not Available [address] [address] [place], [address], 07/18/2021 22:54:05 07/16/19 22 07/18/2021 TESTO STERO NE, FREE, BIOAV AILAB LE AND TOTAL , MS albumin 4.7 g/dL 3.6-5. 1 Not Available [address] [address] [place], [address], 07/18/2021 22:54:05 07/16/19 22 07/18/2021 TESTO STERO NE, FREE, BIOAV AILAB LE AND TOTAL , MS sex hormone binding globulin 15.4 nmol/ L 17-124 low Not Available [facility] [address] [place], [address], 07/18/2021 22:54:05 07/16/19 22 07/18/2021 TESTO STERO NE, FREE, BIOAV AILAB LE AND TOTAL , MS testosterone , free 8.4 pg/mL 0.2-5. 0 high Not Available [facility] [address] [address] [place], [address], 07/18/2021 22:54:05 07/16/19 22 07/18/2021 TESTO STERO NE, FREE, BIOAV AILAB LE AND TOTAL , MS testosterone ,bioavailabl e 18.0 NG/dL 0.5-8. 5 high Not Available [facility] [address] [place] [address] [place], [address], 07/18/2021 22:54:05 07/16/19 22 07/18/2021 TESTO STERO NE, FREE, BIOAV AILAB LE AND TOTAL , MS testosterone , total, MS 43 NG/dL 2-45 For addit ional infor amor tom e refer to https ://ed ucati on.qu estOmise. [employer]/f aq/FA Q165 (This link is being provi ded for infor matgilbert nal/e ducat ional purpo ses only. ) (Note ) This test was devel oped and its allen tical perfo rmanc e wendy cteri stics have been deter mined by [employer]. It has not been clear ed or appro evelina by the FDA. This assay has been valid ated pursu ant to the CLIA regul ation s and is used for clini lauren purpo ses. VITO med fusio n [address] [facility] [address] [place] [address] [phone] Rickey ruiz MD Not Available [facility] [address] [address], [place], [address], 07/18/2021 22:54:05 12/12/19 22 12/14/2021 HEMOG LOBIN A1C hemoglobin A1C 5.3 %_of_ total _HGB <5.7 normal For the purpo se of jaimee hernadez for the prese nce of diabe lisandro: <5.7% Consi stent with the absen ce of diabe lisandro 5.7-6 .4% Consi stent with incre ased risk for diabe lisandro (pred iabet es) > or =6.5% Consi stent with diabe lisandro This assay resul t is consi stent with a decre ased risk of diabe lisandro. Curre ntly, no conse nsus exist s archie beal use of hemog lobin A1c for diagn osis of diabe lisandro in child landy. Accor ding to Ameri can Diabe lisandro Assoc iatio n (ADA) guide lines , hemog lobin A1c <7.0% repre sents optim al contr ol in non-p regna nt diabe tic patie nts. Diffe rent metri cs may apply to speci fic patie nt popul ation s. [facility] Medic al [facility] in Diabe lisandro(A DA). Not Available [facility] [facility] [address] [place], [address], 12/14/2021 14:43:11 12/12/1912/14/2021 TSH+F REE T4 TSH 3.59 mIU/L normal Refer ence Range > or = 20 Years 0.40- 4.50 Pregn alo Range s First trime ster 0.26- 2.66 Secon d trime ster 0.55- 2.73 Third trime ster 0.43- 2.91 Not Available [facility] [address] [place], [address], 12/14/2021 14:43:11 12/12/1912/14/2021 TSH+F REE T4 T4, free 1.5 NG/dL 0.8-1. 8 normal Not Available [facility] [address] [place], [address], 12/14/2021 14:43:11 12/12/19 22 12/14/2021 T3, FREE T3, free 3.5 pg/mL 2.3-4. 2 normal Not Available [facility] [address] [place], [address], 12/14/2021 14:43:10 12/12/19 22 12/14/2021 VITAM IN B12/F OLATE , SERUM PANEL vitamin B12 271 pg/mL 200-11 00 normal Pleas e Note: Altho ugh the refer ence range for vitam in B12 is 200-1 100 pg/mL , it has been repor felicita that betwe en 5 and 10% of patie nts with value s betwe en 200 and 400 pg/mL may exper ience neuro psych iatri c and hemat ologi c abnor malit ies due to occul t B12 defic iency ; less than 1% of patie nts with value s above 400 pg/mL will have sympt oms. Not Available [facility] [address] [place], [address], 12/14/2021 14:43:10 12/12/19 22 12/14/2021 VITAM IN B12/F OLATE , SERUM PANEL folate, serum 8.9 NG/mL normal Refer ence Range Low: <3.4 Borde rline : 3.4-5 .4 Ashley l: >5.4 Not Available [facility] [address] [place], [address], 12/14/2021 14:43:10 12/12/1912/14/2021 INSUL IN insulin 26.4 uIU/m L high Refer ence Range < or = 19.6 Risk: Optim al < or = 19.6 Moder ate NA High >19.6 Adult cardi ovasc ular event risk categ ory cut point s (opti mal, moder ate, high) are based on [facility] ostic s popul ation data from 05/14 11. This insul in assay shows stron g cross -reac tivit y for some insul in analo gs (lisp ro, aspar t, and glarg ine) and much lower cross -reac tivit y with other s (dete matthew, gluli sine) . Not Available [address], [address], 12/14/2021 14:43:09 12/12/19 22 12/14/2021 DHEA SULFA TE DHEA sulfate 56 mcg/d L 19-237 normal Not Available [address], [address], 12/14/2021 14:43:09 12/12/19 22 12/14/2021 THYRO ID PEROX IDASE ANTIB ODIES thyroid peroxidase antibodies 5 IU/mL <9 normal Not Available [address], [address], 12/14/2021 14:43:08 12/12/19 22 12/14/2021 COMPR EHENS CORTES METAB OLIC PANEL glucose 83 mg/dL 65-99 normal Fasti ng refer ence inter nadiya Not Available [address], [address], 12/14/2021 14:43:08 12/12/19 22 12/14/2021 COMPR EHENS CORTES METAB OLIC PANEL urea nitrogen (BUN) 11 mg/dL 7-25 normal Not Available [address], [address], 12/14/2021 14:43:08 12/12/19 22 12/14/2021 COMPR EHENS CORTES METAB OLIC PANEL creatinine 0.89 mg/dL 0.50-0 .97 normal Not Available [address], [address], 12/14/2021 14:43:08 12/12/19 22 12/14/2021 COMPR EHENS CORTES METAB OLIC PANEL eGFR 87 mL/mi n/1.7 3m2 > or = 60 normal The eGFR is based on the CKD-E PI 2020 equat ion. To calcu late the new eGFR from a previ ous Creat inine or Cysta tin C resul t, go to https ://carla garcia.dania padilla.o dane/pr ofess ional s/ kdoqi /gfr% 5Fcal culat or Not Available [address], [address], 12/14/2021 14:43:08 12/12/19 22 12/14/2021 COMPR EHENS CORTES METAB OLIC PANEL BUN/creatini ne ratio not applic able (calc ) 6-22 Not Available [address], [address], 12/14/2021 14:43:08 12/12/19 22 12/14/2021 COMPR EHENS CORTES METAB OLIC PANEL sodium 138 mmol/ L 135-14 6 normal Not Available [address], [address], 12/14/2021 14:43:08 12/12/19 22 12/14/2021 COMPR EHENS CORTES METAB OLIC PANEL potassium 4.3 mmol/ L 3.5-5. 3 normal Not Available [address], [address], 12/14/2021 14:43:08 12/12/19 22 12/14/2021 COMPR EHENS CORTES METAB OLIC PANEL chloride 102 mmol/ L 98-110 normal Not Available [address], [address], 12/14/2021 14:43:08 12/12/19 22 12/14/2021 COMPR EHENS CORTES METAB OLIC PANEL carbon dioxide 26 mmol/ L 20-32 normal Not Available [address], [address], 12/14/2021 14:43:08 12/12/19 22 12/14/2021 COMPR EHENS CORTES METAB OLIC PANEL calcium 9.9 mg/dL 8.6-10 .2 normal Not Available [address], [address], 12/14/2021 14:43:08 12/12/19 22 12/14/2021 COMPR EHENS CORTES METAB OLIC PANEL protein, total 7.3 g/dL 6.1-8. 1 normal Not Available [address], [address], 12/14/2021 14:43:08 12/12/19 22 12/14/2021 COMPR EHENS CORTES METAB OLIC PANEL albumin 4.9 g/dL 3.6-5. 1 normal Not Available [address], [address], 12/14/2021 14:43:08 12/12/19 22 12/14/2021 COMPR EHENS CORTES METAB OLIC PANEL globulin 2.4 g/dL_ (calc ) 1.9-3. 7 normal Not Available [address], [address], 12/14/2021 14:43:08 12/12/19 22 12/14/2021 COMPR EHENS CORTES METAB OLIC PANEL albumin/glob ulin ratio 2.0 (calc ) 1.0-2. 5 normal Not Available [address], [address], 12/14/2021 14:43:08 12/12/19 22 12/14/2021 COMPR EHENS CORTES METAB OLIC PANEL bilirubin, total 0.8 mg/dL 0.2-1. 2 normal Not Available [address], [address], 12/14/2021 14:43:08 12/12/19 22 12/14/2021 COMPR EHENS CORTES METAB OLIC PANEL alkaline phosphatase 56 U/L 31-125 normal Not Available [address], [address], 12/14/2021 14:43:08 12/12/19 22 12/14/2021 COMPR EHENS CORTES METAB OLIC PANEL AST 23 U/L 10-30 normal Not Available [address], [address], 12/14/2021 14:43:08 12/12/19 22 12/14/2021 COMPR EHENS CORTES METAB OLIC PANEL ALT 28 U/L 6-29 normal Not Available [address], [address], 12/14/2021 14:43:08 12/12/19 22 12/14/2021 LIPID PANEL , [place] cholesterol, total 167 mg/dL <200 normal Not Available [address], [address], 12/14/2021 14:43:07 12/12/19 22 12/14/2021 LIPID PANEL , [place] HDL cholesterol 42 mg/dL > or = 50 low Not Available [address], [address], 12/14/2021 14:43:07 12/12/19 22 12/14/2021 LIPID PANEL , [place] triglyceride s 177 mg/dL <150 high Not Available [address], [address], 12/14/2021 14:43:07 12/12/19 22 12/14/2021 LIPID PANEL , [place] LDL-choleste rol 98 mg/dL _(lauren c) normal Refer ence range : <100 Deanna able range <100 mg/dL for prima ry preve ntion ; <70 mg/dL for patie nts with CHD or diabe tic patie nts with > or = 2 CHD risk facto rs. LDL-C is now calcu lated using the [facility] n-Hop kins calcu shelia n, which is a valid ated novel metho d provi emigdio ashish r accur acy than the Fried alverto equat ion in the estim ation of LDL-C . Carey n SS et al. KATALINA. 2013; 310(1 4): 2061- 2068 (http ://ed ucati on.[employer] Filomena [employer]Creator.ME. com/f aq/FA Q164) Not Available [address] [address] [place], [address], 12/14/2021 14:43:07 12/12/19 22 12/14/2021 LIPID PANEL , [place] chol/HDLC ratio 4.0 (calc ) <5.0 normal Not Available [address] [address] [place], [address], 12/14/2021 14:43:07 12/12/19 22 12/14/2021 LIPID PANEL , [place] non HDL cholesterol 125 mg/dL _(lauren c) <130 normal For patie nts with diabe lisandro plus 1 major ASCVD risk facto r, treat ing to a non-H DL-C goal of <100 mg/dL (LDL- C of <70 mg/dL ) is consi dered a daa perubia c optio n. Not Available [address], [address], 12/14/2021 14:43:07 12/12/19 22 12/14/2021 TESTO STERO NE, FREE, BIOAV AILAB LE AND TOTAL , MS albumin 4.7 g/dL 3.6-5. 1 Not Available [address] [address] [place], [address], 12/14/2021 14:43:07 12/12/19 22 12/14/2021 TESTO STERO NE, FREE, BIOAV AILAB LE AND TOTAL , MS sex hormone binding globulin 15.0 nmol/ L 17-124 low Not Available [facility] [place] [address] [place], [address], 12/14/2021 14:43:07 12/12/19 22 12/14/2021 TESTO STERO NE, FREE, BIOAV AILAB LE AND TOTAL , MS testosterone , free 3.3 pg/mL 0.2-5. 0 Not Available [facility] [place] [address] [place], [address], 12/14/2021 14:43:07 12/12/19 22 12/14/2021 TESTO STERO NE, FREE, BIOAV AILAB LE AND TOTAL , MS testosterone ,bioavailabl e 7.1 NG/dL 0.5-8. 5 Not Available [facility] [place] [address] [place], [address], 12/14/2021 14:43:07 12/12/1912/14/2021 TESTO STERO NE, FREE, BIOAV AILAB LE AND TOTAL , MS testosterone , total, MS 17 NG/dL 2-45 For addit ional infor amor tom e refer to https ://ed ucati on.qu estdi [employer]. com/f aq/FA Q165 (This link is being provi ded for infor matgilbert nal/e ducat ional purpo ses only. ) (Note ) This test was devameena ding and its allen tical perfo rmanc e wendy cteri stics have been deter mined by [employer]on. It has not been clear ed or appro evelina by the FDA. This assay has been valid ated pursu ant to the CLIA regul ation s and is used for clini lauren purpo ses. VITO med fusio n [address] [facility] [address] [facility] [address] [phone] Rickey ruiz MD Not Available [facility] [address] [place], [address], 12/14/2021 14:43:07 06/18/19 23 06/21/2022 HEMOG LOBIN A1C hemoglobin A1C 5.3 %_of_ total _HGB <5.7 normal For the purpo se of scree satya for the prese nce of diabe lisandro: <5.7% Consi stent with the absen ce of diabe lisandro 5.7-6 .4% Consi stent with incre ased risk for diabe lisandro (pred iabet es) > or =6.5% Consi stent with diabe lisandro This assay resul t is consi stent with a decre ased risk of diabe lisandro. Curre ntly, no conse nsus exist s archie beal use of hemog lobin A1c for diagn osis of diabe lisandro in child landy. Accor ding to Ameri can Diabe lisandro Assoc iatio n (ADA) guide lines , hemog lobin A1c <7.0% repre sents optim al contr ol in non-p regna nt diabe tic patie nts. Diffe rent metri cs may apply to speci fic patie nt popul ation s. Stand ards of Medic al Care in Diabe lisandro(A DA). Not Available [facility] [address] [address] [place], [address], 06/21/2022 14:05:12 06/18/1906/21/2022 TSH+F REE T4 TSH 3.65 mIU/L normal Refer ence Range > or = 20 Years 0.40- 4.50 Pregn alo Range s First trime ster 0.26- 2.66 Secon d trime ster 0.55- 2.73 Third trime ster 0.43- 2.91 Not Available [employer] [address] [place] [address] [place], [address], 06/21/2022 14:05:11 06/18/1906/21/2022 TSH+F REE T4 T4, free 1.3 NG/dL 0.8-1. 8 normal Not Available [facility] [address] [address] [place], [address], 06/21/2022 14:05:11 06/18/1906/21/2022 T3, FREE T3, free 3.8 pg/mL 2.3-4. 2 normal Not Available [facility] [address] [address] [place], [address], 06/21/2022 14:05:11 06/18/1906/21/2022 INSUL IN insulin 42.8 uIU/m L high Refer ence Range < or = 18.4 Risk: Optim al < or = 18.4 Moder ate NA High >18.4 Adult cardi ovasc ular event risk categ ory cut point s (opti mal, moder ate, high) are based on Insul in Refer ence Inter nadiya studi es perfo rmed at [facility] in 2021. Not Available [employer] [address], [address], 06/21/2022 14:05:10 06/18/1906/21/2022 DHEA SULFA TE DHEA sulfate 68 mcg/d L 19-237 normal Not Available [address], [address], 06/21/2022 14:05:10 06/18/1906/21/2022 COMPR EHENS CORTES METAB OLIC PANEL glucose 78 mg/dL 65-99 normal Fasti ng refer ence inter nadiya Not Available [facility] [address], [address], 06/21/2022 14:05:09 06/18/1906/21/2022 COMPR EHENS CORTES METAB OLIC PANEL urea nitrogen (BUN) 9 mg/dL 7-25 normal Not Available [facility] [address], [address], 06/21/2022 14:05:09 06/18/1906/21/2022 COMPR EHENS CORTES METAB OLIC PANEL creatinine 0.77 mg/dL 0.50-0 .97 normal Not Available [employer] [address], [address], 06/21/2022 14:05:09 06/18/1906/21/2022 COMPR EHENS CORTES METAB OLIC PANEL eGFR 103 mL/mi n/1.7 3m2 > or = 60 normal The eGFR is based on the CKD-E PI 2020 equat ion. To calcu late the new eGFR from a previ ous Creat inine or Cysta tin C resul t, go to https ://carla vela/caesar hernandez s/ kdoqi /gfr% 5Fcal culat or Not Available [address] [address] [place], [address], 06/21/2022 14:05:09 06/18/19 23 06/21/2022 COMPR EHENS CORTES METAB OLIC PANEL BUN/creatini ne ratio not applic able (calc ) 6-22 Not Available [address], [address], 06/21/2022 14:05:09 06/18/19 23 06/21/2022 COMPR EHENS CORTES METAB OLIC PANEL sodium 136 mmol/ L 135-14 6 normal Not Available [address] [place], [address], 06/21/2022 14:05:09 06/18/19 23 06/21/2022 COMPR EHENS CORTES METAB OLIC PANEL potassium 4.2 mmol/ L 3.5-5. 3 normal Not Available [address], [address], 06/21/2022 14:05:09 06/18/19 23 06/21/2022 COMPR EHENS CORTES METAB OLIC PANEL chloride 101 mmol/ L 98-110 normal Not Available [address], [address], 06/21/2022 14:05:09 06/18/19 23 06/21/2022 COMPR EHENS CORTES METAB OLIC PANEL carbon dioxide 26 mmol/ L 20-32 normal Not Available [address] [address] [place], [address], 06/21/2022 14:05:09 06/18/19 23 06/21/2022 COMPR EHENS CORTES METAB OLIC PANEL calcium 9.6 mg/dL 8.6-10 .2 normal Not Available [address], [address], 06/21/2022 14:05:06/18/19 23 06/21/2022 COMPR EHENS CORTES METAB OLIC PANEL protein, total 6.9 g/dL 6.1-8. 1 normal Not Available [address], [address], 06/21/2022 14:05:06/18/1906/21/2022 COMPR EHENS CORTES METAB OLIC PANEL albumin 4.8 g/dL 3.6-5. 1 normal Not Available [address], [address], 06/21/2022 14:05:06/18/19 23 06/21/2022 COMPR EHENS CORTES METAB OLIC PANEL globulin 2.1 g/dL_ (calc ) 1.9-3. 7 normal Not Available [address], [address], 06/21/2022 14:05:06/18/19 23 06/21/2022 COMPR EHENS CORTES METAB OLIC PANEL albumin/glob ulin ratio 2.3 (calc ) 1.0-2. 5 normal Not Available [address], [address], 06/21/2022 14:05:06/18/19 23 06/21/2022 COMPR EHENS CORTES METAB OLIC PANEL bilirubin, total 0.6 mg/dL 0.2-1. 2 normal Not Available [address], [address], 06/21/2022 14:05:06/18/19 23 06/21/2022 COMPR EHENS CORTES METAB OLIC PANEL alkaline phosphatase 57 U/L 31-125 normal Not Available [address] [address] [place], [address], 06/21/2022 14:05:09 06/18/1906/21/2022 COMPR EHENS CORTES METAB OLIC PANEL AST 27 U/L 10-30 normal Not Available [address], [address], 06/21/2022 14:05:09 06/18/1906/21/2022 COMPR EHENS CORTES METAB OLIC PANEL ALT 39 U/L 6-29 high Not Available [address], [address], 06/21/2022 14:05:06/18/1906/21/2022 TESTO STERO NE, FREE, BIOAV AILAB LE AND TOTAL , MS albumin 4.8 g/dL 3.6-5. 1 Not Available [address], [address], 06/21/2022 14:05:06/18/1906/21/2022 TESTO STERO NE, FREE, BIOAV AILAB LE AND TOTAL , MS sex hormone binding globulin 16.4 nmol/ L 17-124 low Not Available [address], [address], 06/21/2022 14:05:06/18/1906/21/2022 TESTO STERO NE, FREE, BIOAV AILAB LE AND TOTAL , MS testosterone , free 7.1 pg/mL 0.2-5. 0 high Not Available [address], [address], 06/21/2022 14:05:09 06/18/1906/21/2022 TESTO STERO NE, FREE, BIOAV AILAB LE AND TOTAL , MS testosterone ,bioavailabl e 15.4 NG/dL 0.5-8. 5 high Not Available [address], [place], [address], 06/21/2022 14:05:09 06/18/19 23 06/21/2022 TESTO STERO NE, FREE, BIOAV AILAB LE AND TOTAL , MS testosterone , total, MS 38 NG/dL 2-45 For addit ional infor matgilbert n, pleas e refer to https ://ed ucati on.qu bertindi TheCreator.ME. com/f aq/FA Q165 (This link is being provi ded for infor matio nal/e ducat ional purpo ses only. ) (Note ) This test was devel oped and its allen tical perfo rmanc e wendy cteri stics have been deter mined by [employer]. It has not been clear ed or appro evelina by the FDA. This assay has been valid ated pursu ant to the CLIA regul ation s and is used for clini lauren purpo ses. MDF med fusio n [address] [facility] [address] [facility] [address] [phone] Rickey ruiz MD Not Available [facility] [address] [address], [place], [address], 06/21/2022 14:05:09 08/14/19 23 08/21/2022 DEXAM ETHAS ONE dexamethason e 326 NG/dL Refer ence Range s for Dexam ethas one: Basel ine: Less than 20 ng/dL 1 mg dexam ethas one overn ight: 180-5 50 ng/dL (8:00 -10:0 0 AM) This test was devel oped and its allen tical perfo rmanc e wendy cteri stics have been deter mined by [facility] . It has not been clear ed or appro evelina by FDA. This assay has been valid ated pursu ant to the CLIA regul ation s and is used for clini lauren purpo ses. Not Available [facility] [address] [address], [place], [address], 08/21/2022 16:07:49 08/14/1908/21/2022 CORTI KAROL, A.M. cortisol, A.M. 1.0 mcg/d L low Refer ence Range 8 a.m. (7-9 a.m.) Speci men: 4.0-2 2.0 Not Available [address], [address], 08/21/2022 16:07:50 12/06/19 23 12/10/2022 IRON, TIBC AND YA TIN PANEL iron, total 95 mcg/d L 40-190 normal Not Available [address], [address], 12/10/2022 13:26:34 12/06/19 23 12/10/2022 IRON, TIBC AND YA TIN PANEL iron binding capacity 394 mcg/d L_(ca lc) 250-45 0 normal Not Available [address], [address], 12/10/2022 13:26:34 12/06/19 23 12/10/2022 IRON, TIBC AND YA TIN PANEL % saturation 24 %_(ca lc) 16-45 normal Not Available [address], [address], 12/10/2022 13:26:34 12/06/19 23 12/10/2022 IRON, TIBC AND YA TIN PANEL ferritin 94 NG/mL 16-154 normal Not Available [address], [address], 12/10/2022 13:26:34 12/06/1912/10/2022 HEPAT ITIS PANEL , ACUTE W/REF JORDYN TO CONFI RMATI ON hepatitis A IgM NON-RE ACTIVE non-re active normal For addit ional infor amor tom e refer to http: //anne vela.belle stdia gnost ics.c om/fa q/FAQ 202 (This link is being provi ded for infor matio nal/ educa eda l purpo ses only. ) Not Available [address], [address], 12/10/2022 13:26:35 12/06/19 23 12/10/2022 HEPAT ITIS PANEL , ACUTE W/REF JORDYN TO CONFI RMATI ON hepatitis B surface antigen NON-RE ACTIVE non-re active normal For addit ional infor amor tom e refer to http: //[facility] stdia gnost ics.c om/fa q/FAQ 202 (This link is being provi ded for infor matio nal/ educa eda l purpo ses only. ) Not Available [address], [address], 12/10/2022 13:26:35 12/06/19 23 12/10/2022 HEPAT ITIS PANEL , ACUTE W/REF JORDYN TO CONFI RMATI ON hepatitis B core antibody (IgM) NON-RE ACTIVE non-re active normal For addit ional amor dailey e refer to http: //[facility] leyda kat stdia gnost ics.c om/fa q/FAQ 202 (This link is being provi ded for infor matgilbert nal/ educa eda l purpo ses only. ) Not Available [address], [address], 12/10/2022 13:26:35 12/06/19 23 12/10/2022 HEPAT ITIS PANEL , ACUTE W/REF JORDYN TO CONFI RMATI ON hepatitis C antibody NON-RE ACTIVE non-re active normal HCV antib jcarlos was non-r eacti ve. There is no labor atory evide nce of HCV infec tion. In most cases , no furth er actio n is requi red. Howev er, if recen t HCV expos ure is suspe cted, a test for HCV RNA (test code 46076 ) is sugge sted. For addit ional infor duncan chinchilla e refer to http: //anne vizcarraia gnost ics.c om/fa q/FAQ 22v1 (This link is being provi ded for infor duncan steinberg/ vania fletcher purpo ses only. ) Not Available [address], [address], 12/10/2022 13:26:35 12/06/19 23 12/10/2022 COMPR EHENS CORTES METAB OLIC PANEL glucose 83 mg/dL 65-99 normal Fasti ng refer ence inter nadiya Not Available [address], [address], 12/10/2022 13:26:36 12/06/19 23 12/10/2022 COMPR EHENS CORTES METAB OLIC PANEL urea nitrogen (BUN) 10 mg/dL 7-25 normal Not Available [address], [address], 12/10/2022 13:26:36 12/06/19 23 12/10/2022 COMPR EHENS CORTES METAB OLIC PANEL creatinine 0.84 mg/dL 0.50-0 .97 normal Not Available [address], [address], 12/10/2022 13:26:36 12/06/19 23 12/10/2022 COMPR EHENS CORTES METAB OLIC PANEL eGFR 92 mL/mi n/1.7 3m2 > or = 60 normal The eGFR is based on the CKD-E PI 2020 equat ion. To calcu late the new eGFR from a previ ous Creat inine or Cysta tin C resul t, go to https ://carla vela/caesar hernandez s/ kdoqi /gfr% 5Fcal culat or Not Available [address], [address], 12/10/2022 13:26:36 12/06/19 23 12/10/2022 COMPR EHENS CORTES METAB OLIC PANEL BUN/creatini ne ratio NOT APPLIC ABLE (calc ) 6-22 Not Available [address], [address], 12/10/2022 13:26:36 12/06/19 23 12/10/2022 COMPR EHENS CORTES METAB OLIC PANEL sodium 136 mmol/ L 135-14 6 normal Not Available [address], [address], 12/10/2022 13:26:36 12/06/19 23 12/10/2022 COMPR EHENS CORTES METAB OLIC PANEL potassium 4.4 mmol/ L 3.5-5. 3 normal Not Available [address], [address], 12/10/2022 13:26:36 12/06/19 23 12/10/2022 COMPR EHENS CORTES METAB OLIC PANEL chloride 102 mmol/ L 98-110 normal Not Available [address], [address], 12/10/2022 13:26:36 12/06/19 23 12/10/2022 COMPR EHENS CORTES METAB OLIC PANEL carbon dioxide 25 mmol/ L 20-32 normal Not Available [address], [address], 12/10/2022 13:26:36 12/06/19 23 12/10/2022 COMPR EHENS CORTES METAB OLIC PANEL calcium 9.8 mg/dL 8.6-10 .2 normal Not Available [address], [address], 12/10/2022 13:26:36 12/06/19 23 12/10/2022 COMPR EHENS CORTES METAB OLIC PANEL protein, total 7.1 g/dL 6.1-8. 1 normal Not Available [address], [address], 12/10/2022 13:26:36 12/06/19 23 12/10/2022 COMPR EHENS CORTES METAB OLIC PANEL albumin 4.7 g/dL 3.6-5. 1 normal Not Available [address], [address], 12/10/2022 13:26:36 12/06/19 23 12/10/2022 COMPR EHENS CORTES METAB OLIC PANEL globulin 2.4 g/dL_ (calc ) 1.9-3. 7 normal Not Available [address], [address], 12/10/2022 13:26:36 12/06/19 23 12/10/2022 COMPR EHENS CORTES METAB OLIC PANEL albumin/glob ulin ratio 2.0 (calc ) 1.0-2. 5 normal Not Available [address], [address], 12/10/2022 13:26:36 12/06/19 23 12/10/2022 COMPR EHENS CORTES METAB OLIC PANEL bilirubin, total 0.6 mg/dL 0.2-1. 2 normal Not Available [address], [address], 12/10/2022 13:26:36 12/06/19 23 12/10/2022 COMPR EHENS CORTES METAB OLIC PANEL alkaline phosphatase 47 U/L 31-125 normal Not Available [address] [address] [place], [address], 12/10/2022 13:26:36 12/06/19 23 12/10/2022 COMPR EHENS CORTES METAB OLIC PANEL AST 38 U/L 10-30 high Not Available [address], [address], 12/10/2022 13:26:36 0712/10/2022 COMPR EHENS CORTES METAB OLIC PANEL ALT 35 U/L 6-29 high Not Available [facility] [address] [place], [address], 12/10/2022 13:26:36 12/06/1912/10/2022 LIVER KIDNE Y MICRO SOME (LKM- 1) AB (IGG) lkm-1 antibody (IgG) <=20.0 U <=20.0 Refer ence Range : <=20. 0 Negat cortes 20.1- 24.9 Equiv ocal >=25. 0 Posit cortes Anti- liver /kidn ey micro somal antib odies (Anti -LKM- 1) were previ ously teste d by indir ect immun ofluo resce nce (IF) using vita t liver /kidn ey subst rate. Ident ifica tion of a speci fic antib jcarlos targe t as cytoc hrome P450 IID6 has led to the curre nt recom binan t based LIZ . Antib odies to this cytoc hrome are prese nt in appro ximat eden 70% of patie nts with autoi mmune hepat itis type 2. This antib jcarlos is also prese nt in appro ximat eden 10% of patie nts with hepat itis C infec tion. Not Available [facility] [address] [place], [address], 12/10/2022 13:26:37 12/06/1912/10/2022 LESA SCREE N, IFA, W/REF L TITER AND PATTE RN LESA screen, ifa NEGATI VE negati ve normal LESA IFA is a first line scree n for detec ting the prese nce of up to appro ximat eden 150 autoa ntibo dies in vario us autoi mmune disea ses. A negat cortes LESA IFA resul t sugge sts an LESA-a ssoci ated autoi mmune disea se is not prese nt at this time, but is not defin itive . If there is high clini lauren suspi cion for Sjogr en's syndr ome, testi ng for anti- SS-A/ Ro antib jcarlos shoul d be consi dered . Anti- Evie-1 antib jcarlos shoul d be consi dered for clini funmi suspe cted infla mmato ry myopa duc . AC-0: Negat cortes Inter natio nal Conse nsus on LESA Richard rns (http s://d oi.or g/10. 5215/ [facility]2017- 0052) For addit ional infor amor tom e refer to http: //[facility] leyda vela.Que stDia gnost ics.c om/fa q/FAQ 177 (This link is being provi ded for infor duncan steinberg/ educa eda l purpo ses only. ) Not Available [employer] [address] [address] [place], [address], 12/10/2022 13:26:38 12/06/1912/10/2022 MITOC HONDR IAL ANTIB JCARLOS W/REF L TITER mitochondria l Ab screen NEGATI VE negati ve Not Available [employer] [address] [address] [place], [address], 12/10/2022 13:26:38 12/06/1912/10/2022 INSUL IN insulin 39.0 uIU/m L high Refer ence Range < or = 18.4 Risk: Optim al < or = 18.4 Moder ate NA High >18.4 Adult cardi ovasc ular event risk categ ory cut point s (opti mal, moder ate, high) are based on Insul in Refer ence Inter nadiya studi es perfo [facility]med at [facility] in 2021. Not Available [employer] [address] [address] [place], [address], 12/10/2022 13:26:39 12/06/1912/10/2022 VITAM IN B12/F OLATE , SERUM PANEL vitamin B12 239 pg/mL 200-11 00 normal Pleas e Note: Altho ugh the refer ence range for vitam in B12 is 200-1 100 pg/mL , it has been repor felicita that betwe en 5 and 10% of patie nts with value s betwe en 200 and 400 pg/mL may exper ience neuro psych iatri c and hemat ologi c abnor malit ies due to occul t B12 defic iency ; less than 1% of patie nts with value s above 400 pg/mL will have sympt oms. Not Available [facility] [address] [place], [address], 12/10/2022 13:26:40 12/06/1912/10/2022 VITAM IN B12/F OLATE , SERUM PANEL folate, serum 10.8 NG/mL normal Refer ence Range Low: <3.4 Borde rline : 3.4-5 .4 Ashley l: >5.4 Not Available [facility] [address] [place], [address], 12/10/2022 13:26:40 12/06/1912/10/2022 T3, FREE T3, free 3.6 pg/mL 2.3-4. 2 normal Not Available [employer] [address], [address], 12/10/2022 13:26:41 12/06/1912/10/2022 TSH+F REE T4 TSH 2.03 mIU/L normal Refer ence Range > or = 20 Years 0.40- 4.50 Pregn alo Range s First trime ster 0.26- 2.66 Secon d trime ster 0.55- 2.73 Third trime ster 0.43- 2.91 Not Available [facility] [address] [place], [address], 12/10/2022 13:26:41 12/06/1912/10/2022 TSH+F REE T4 T4, free 1.5 NG/dL 0.8-1. 8 normal Not Available [employer] [address] [place], [address], 12/10/2022 13:26:41 12/06/1912/10/2022 HEMOG LOBIN A1C hemoglobin A1C 5.2 %_of_ total _HGB <5.7 normal For the purpo se of jaimee hernadez for the prese nce of diabe lisandro: <5.7% Consi stent with the absen ce of diabe lisandro 5.7-6 .4% Consi stent with incre ased risk for diabe lisandro (pred iabet es) > or =6.5% Consi stent with diabe lisandro This assay resul t is consi stent with a decre ased risk of diabe lisandro. Curre ntly, no conse nsus exist s regar emigdio use of hemog lobin A1c for diagn osis of diabe lisandro in child landy. Accor ding to Ameri can Diabe lisandro Assoc iatio n (ADA) guide lines , hemog lobin A1c <7.0% repre sents optim al contr ol in non-p regna nt diabe tic patie nts. Diffe rent metri cs may apply to speci fic patie nt popul ation s. Stand ards of Medic al Care in Diabe lisandro(A DA). Not Available [facility] [address] [address], [place], [address], 12/10/2022 13:26:42 12/19/1912/18/2022 US, liver No observ ation record ed. [email or web address] [address], [place], [address], 01/06/2023 15:23:56 Result Notes None recorded. Problems Name Problem SNOMED Code Status Onset Date Resolution Date Notes Provider Name and Address Organization Details Recorded Time Hypothyroidis m 30910979 Active 2022 Not Available [employer] 13:13:28 Prediabetes 938708422 Active 2022 Antonia Duams MD [address] [facility] [address], [place], [address] , [place] [facility] [employer] 17:43:48 Liver enzymes level above reference range 220351749 Active 2022 Antonia Dumas MD [address], [place], [address] , [facility] [employer] [facility] [employer] [facility] 3 17:45:24 Steatotic liver disease 889840416 Active 2022 Antonia Dumas MD [address], [place], [address] , [facility] [employer] [facility] [employer] [facility] 3 21:18:36 Non-alcoholic fatty liver 825799041 Active 2022 Antonia Dumas MD [address], [place], [address] , [facility] [employer] [facility] [employer] [facility] 3 23:20:08 Vitamin B12 deficiency (non anemic) 61122950 Active 2022 Antonia Dumas MD [address], [place], [address] , [employer] [facility] [employer] [facility] 10:45:49 Problem Notes None recorded. Procedures Surgical History Date Name Laterality Status Provider Name and Address Organization Details Recorded Time Ankle Surgery completed Not Available [facility] 07/24/2022 13:12:58 Knee completed Not Available [facility] 05/2022 13:12:58 Carpal tunnel surgery completed Lorrie Quispe RN [facility] [employer] [facility] 01/14/2023 17:10:26 Imaging Results None recorded. Procedure Notes None recorded. Medical Equipment None Reported. Allergies No known drug allergies Medications Name Sig Start Date Stop Date Status Note LastModified by Organization Details LastModified Time cyclobenzap rine 10 mg tablet TAKE 1 TABLET BY MOUTH TWICE DAILY NEEDED FOR MUSCLE SPASM 09/10 completed Not Available Not Available Not Available venlafaxine ER 37.5 mg capsule,ext ended release 24 hr Take 1 capsule every day by oral route in the morning for 90 days. 08/14 completed Not Available Not Available Not Available prednisone 10 mg tablet 09/10 completed Not Available Not Available Not Available venlafaxine ER 75 mg capsule,ext ended release 24 hr active Not Available Not Available Not Available oxybutynin chloride ER 10 mg tablet,exte nded release 24 hr TAKE ONE TABLET BY MOUTH DAILY 09/10 completed Not Available Not Available Not Available meloxicam 15 mg tablet 09/22 completed Not Available Not Available Not Available Synthroid 125 mcg tablet Take 1 tablet every day by oral route in the morning for 90 days. 08/14 completed Not Available Not Available Not Available prednisone 20 mg tablet TAKE 1 TABLET BY MOUTH DAILY 09/22 completed Not Available Not Available Not Available Synthroid 100 mcg tablet Take 1 tablet every day by oral route in the morning for 90 days. 2022 active Not Available Not Available Not Avai lable spironolact one 100 mg tablet TAKE 1 TABLET (100 MG) IN MORNING AND 1 TABLET IN THE EVENING active Not Available Not Available No t Available phentermine 15 mg capsule TK ONE C PO B JESUS 09/22 completed Not Available Not Available Not Available alprazolam 0.5 mg tablet active Not Available Not Available Not Available amoxicillin 875 mg tablet TAKE 1 TABLET BY MOUTH EVERY 12 HOURS FOR 10 DAYS 09/10 completed Not Available Not Available Not Available dexamethaso ne 1 mg tablet 09/10 completed Not Available Not Available Not Available meclizine 25 mg tablet TK 1 T PO Q 6 H PRN FOR VERTIGO 09/22 completed Not Available Not Available Not Available benzonatate 100 mg capsule TAKE 1 CAPSULE BY MOUTH EVERY 8 HOURS NEEDED 09/10 completed Not Available Not Available Not Available cyanocobala min (vit B-12) 1,000 mcg/mL injection solution INJECT 1 ML WEEKLY SUBCUTANE OUSLY IN THE MORNING (DISCARD 28 DAYS AFTER FIRST USE) active Not Available Not Available No t Available codeine 10 mg-guaifene sin 100 mg/5 mL oral liquid TAKE 10 MLS BY MOUTH EVERY 6 HOURS NEEDED FOR COUGH 09/10 completed Not Available Not Available Not Available Synthroid 112 mcg tablet 09/22 completed Not Available Not Available Not Available ergocalcife rol (vitamin D2) 1,250 mcg (50,000 unit) capsule TAKE 1 CAPSULE BY MOUTH EVERY WEEK DIRECTED 12/29 completed Not Available Not Available Not Available methylpredn isolone 4 mg tablets in a dose pack FOLLOW PACKAGE DIRECTION S 09/22 completed Not Available Not Available Not Available fluticasone propionate 50 mcg/actuati on nasal spray,suspe nsion active Not Available Not Available Not Available metformin ER 500 mg tablet,exte nded release 24 hr Take 1 tablet every day by oral route at dinner for 90 days. active Not Available Not Available No t Available spironolact one 50 mg tablet TAKE 2 TABLETS BY MOUTH EVERY DAY IN THE MORNING 12/29 completed Not Available Not Available Not Available amoxicillin 875 mg-potassiu m clavulanate 125 mg tablet TAKE 1 TABLET BY MOUTH EVERY 12 HOURS UNTIL ALL TAKEN 12/29 completed Not Available Not Available Not Available escitalopra m 10 mg tablet TK 1 T PO D 09/22 completed Not Available Not Available Not Available escitalopra m 20 mg tablet 09/10 completed Not Available Not Available Not Available eletriptan 20 mg tablet 09/10 completed Not Available Not Available Not Available eletriptan 40 mg tablet active Not Available Not Available Not Available rosuvastati n 10 mg tablet Take 1 tablet every day by oral route in the morning for 90 days. active Not Available Not Available No t Available rosuvastati n 20 mg tablet active Not Available Not Available Not Available nitrofurant oin monohydrate /macrocryst als 100 mg capsule TAKE ONE CAPSULE BY MOUTH TWICE DAILY FOR 5 DAYS 09/10 completed Not Available Not Available Not Available azelastine 205.5 mcg (0.15 %) nasal spray active Not Available Not Available Not Available Onexton 1.2 % (1 % base)-3.75 % topical gel with pump APPLY TOPICALLY TO THE AFFECTED AREA EVERY DAY NEEDED FOR ACNE FLARES active Not Available Not Available No t Available Ozempic 0.25 mg or 0.5 mg (2 mg/1.5 mL) subcutaneou s pen injector active Not Available Not Available Not Available Olumiant 2 mg tablet Take 1 tablet every day by oral route. 09/10 completed Not Available Not Available Not Available ID NOW COVID-19 Test Kit TEST DIRECTED 01/14 completed Not Available Not Available Not Available Ozempic 1 mg/dose (4 mg/3 mL) subcutaneou s pen injector INJECT 1 MG SUBCUTANE OUSLY EVERY WEEK AT DINNER active Not Available Not Available No t Available Olumiant 4 mg tablet 01/14 completed Not Available Not Available Not Available Ozempic 0.25 mg or 0.5 mg (2 mg/3 mL) subcutaneou s pen injector active Not Available Not Available Not Available Litfulo 50 mg capsule active Not Available Not Available N ot Available Vitals Date Recorded Body mass index (BMI) Body height Oxygen saturation Heart rate Body temperature Body weight Systolic And Diastolic Provider Name and Address Organization Details Last Updated DateTime 2 36 kg/m2 162.56 cm 98 % 84 /min 97.8 [degF] 83481.6 g 120/80 mm[Hg] Not Available [facility] 3 13:13:18 Date Recorded Body height Body mass index (BMI) Body weight Body temperature Respiratory rate Heart rate Systolic And Diastolic Provider Name and Address Organization Details Last Updated DateTime 3 162.56 cm 37.6 kg/m2 87832.0 1 g 98.1 [degF] 18 /min 95 /min 139/91 mm[Hg] JANIE Barrientos [facility] [employer] [facility] 3 17:19:41 Date Recorded Body height Body mass index (BMI) Body weight Body temperature Respiratory rate Heart rate Systolic And Diastolic Provider Name and Address Organization Details Last Updated DateTime 3 162.56 cm 37.2 kg/m2 36778.1 1 g 98.3 [degF] 16 /min 86 /min 131/86 mm[Hg] Lorrie Quispe RN [facility] [employer] [facility] 3 17:06:30 Date Recorded Body height Provider Name an d Address Organization Details Last Updated DateTime 02/01/2022 162.56 cm Not Available [facility] 3 13:13:18 Social History Question Answer Notes LastModified by Organizat ion Details LastModified Time Tobacco Smoking Status Never Smoker Not Available [facility] 07/24/2022 13:12:58 What Is Your Level Of Caffeine Consumption? Heavy [id number] Information not available 07/24/2022 How Much Tobacco Do You Chew? None [id number] Information not available 07/24/2022 In The 14 Days Before Symptom Onset, Have You Had Close Contact With A Laboratory-confirm ed COVID-19 While That Case Was Ill? No [id number] Information not available 07/24/2022 In The 14 Days Before Symptom Onset, Have You Had Close Contact With A Person Who Is Under Investigation For COVID-19 While That Person Was Ill? No [id number] Information not available 07/24/2022 Which Illicit Or Recreational Drugs Have You Used? None [id number] Information not available 07/24/2022 Sex: Unknown Functional Status Question Answer Note LastModified by Organizat ion Details LastModified Time What is your level of alcohol consumption? Occasional [id number] Information not available 07/24/2022 Do you or have you ever used smokeless tobacco? 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 Never used electronic cigarettes [id number] Information not available 07/24/2022 Mental Status None recorded. Family History Relationship Description Onset Age of this Age Resolved Age Notes LastModified by Organization Details LastModified Time Paternal Grandfather Kidney disease [id number] Not available 07/24/2022 13:12:59 Paternal Grandfather Diabetes mellitus [id number].893 [id number] Not available 07/24/2022 13:12:59 Maternal Grandmother Malignant neoplasm of kidney [id number].408 [id number] Not available 07/24/2022 13:12:59 Maternal Grandmother Parkinson's disease [id number].467 [id number] Not available 07/24/2022 13:12:59 Paternal Grandmother Malignant neoplasm of colon [id number].293 [id number] Not available 07/24/2022 13:12:59 Paternal Grandmother Hypercholest erolemia [id number].400 [id number] Not available 07/24/2022 13:12:59 Father Hypercholest erolemia [id number].989 [id number] Not available 07/24/2022 13:12:59 Father Hypothyroidi sm MIGRATION.313 [id number] Not available 07/24/2022 13:12:59 Mother Hypercholest erolemia [id number].457 [id number] Not available 07/24/2022 13:12:59 Mother Hypertensive disorder [id number] Not available 07/24/2022 13:12:59 Brother Diabetes mellitus [id number].517 [id number] Not available 07/24/2022 13:12:59 Maternal Grandfather Malignant neoplasm of lung MIGRATION.723 [id number] Not available 07/24/2022 13:12:59 Medical History Condition Response THYROID DISEASE Y HIGH CHOLESTEROL / HYPERLIPIDEMIA Y HYPOTHYROIDISM Y Gynecological HistoryNo gynecological history recorded. Obstetrics History GPAL:G 0 P 0 0 0 0 Past Encounters Encounter ID Performer Location Encounter Start Date Encounter Closed Date Diagnosis/Indication Diagnosis SNOMED-CT Code Diagnosis ICD10 Code Diagnosis IMO Codes Diagnosis Note [id number] Antonia Dumas MD [facility] [address] [place] [address] 09/22/2020 00:00:00 09/22/2020 22:00:52 [id number] Antonia Dumas MD [facility] [place] [address] [place] [address] 12/29/2020 00:00:00 12/29/2020 15:22:20 [id number] Antonia Dumas MD [facility] [place] [address] [place] [address] 08/14/2021 00:00:00 08/14/2021 20:35:53 [id number] Antonia Dumas MD [facility] [place] [address] [place] [address] 02/01/2022 00:00:00 02/02/2022 10:22:04 [id number] Antonia Dumas MD [facility] [place] [address] [place] [address] 09/10/2022 17:03:08 09/10/2022 17:50:42 Hypothyroidism 41716745 E03.9 FT4 in ideal range- continue synthroid 100 mcg daily. She was reminded to take her synthroid on empty stomach with glass of water and wait one hour to eat or have her coffee in morning and up to 4 hours if ever taking any heartburn or reflux medication s to help optimize absorption . Discussed paleo like diet with restrictio n of GMOs to help with energy and to optimize absorption of vitamins and minerals and reduce inflammati on. Prediabetes 320602011 R7 3.03 a1c of 5.3%- continue ozempic and uptitrate to 1 mg SQ once weekly. recommende d bartolo - inositol or berberine for insulin sensitizat ion as her insulin levels are high- she did not respond well to metformin. Recommende d she incorporat e natural insulin home appraiser s such as pears, apples, cinnamon, leona and sweet potatoes to help mobilize her endogenous insulin. Recommende d up to 150 minutes of moderate level activity/e xercise weekly. Liver enzy mes level above reference range [id number] R74.01 Send for liver ultrasound along with hepatitis/ autoimmune panel to screen for secondary causes of elevation. Spent up to 25 minutes preparing to see the patient (eg, review of tests), obtaining and/or reviewing separately obtained history, performing a medically appropriat e examinatio n and evaluation , counseling and educating the patient, ordering medication s, tests, along with documentin g clinical informatio n in the electronic health record, independen tly interpreti ng results and communicat ing results to the patient. RTC in 4-5 months. Patient was provided a handwritte n lab order which contains our fax number. If she chooses to go outside of the [email or web address] system to obtain labwork she was advised to provide our fax number and my informatio n to the lab she will be obtaining labwork from in order to have her labs properly forwarded over for me to review so there is no loss of follow up due to use of outside network. She was also advised to contact our clinic informing us that she has completed her labwork so we are aware we will need to reach out to the appropriat e laboratory to request her results be forwarded to us so I might have the ability to review and make further medical decision making in her case. She voiced understand ing. [id number] Antonia Dumas MD [facility] [address] [place] [address] 01/14/2023 16:32:16 01/15/2023 14:59:15 Hypothyroidism 71468074 E03.9 FT4 in ideal range- continue synthroid 100 mcg daily. She was reminded to take her synthroid on empty stomach with glass of water and wait one hour to eat or have her coffee in morning and up to 4 hours if ever taking any heartburn or reflux medication s to help optimize absorption . Discussed paleo like diet with restrictio n of GMOs to help with energy and to optimize absorption of vitamins and minerals and reduce inflammati on. Prediabetes [id number] R7 3.03 a1c of 5.2%- continue ozempic and uptitrate to 1 mg SQ once weekly. Restart on low dose metformin with dinner due to hyperinsul inemia. Recommende d she incorporat e natural insulin home appraiser s such as pears, apples, cinnamon, leona and sweet potatoes to help mobilize her endogenous insulin. Recommende d up to 150 minutes of moderate level activity/e xercise weekly. Spent up to 25 minutes preparing to see the patient (eg, review of tests), obtaining and/or reviewing separately obtained history, performing a medically appropriat e examinatio n and evaluation , counseling and educating the patient, ordering medication s, tests, along with documentin g clinical informatio n in the electronic health record, independen tly interpreti ng results and communicat ing results to the patient. Patient can be followed by PCP - she/he is aware of my resignatio n and last day of March 07. If needed his/her PCP can refer patient to another endocrinol ogist in the area. All questions /concerns answered and refills necessary at visit today. Health Concerns Section Related Observation LastModified by Organization Detai ls LastModified Time None Recorded Concern Status LastModified by Organization Details LastModified Time None Recorded Advance Directives Directive None Recorded Payers Insurance Date Sequence Insurance Name Policy Number Policy Lopez Covered Member ID Lopez Member ID Guarantor Name 01/11/2023 1 [facility] [id number] Lorrie Strong [id number] Lorrie Strong 12/23/2022 [facility] Lorrie Strong SELF SELF Lorrie Strong Notes Date Note Type Note Provider Name and Address Organization Details Recorded Time 09/10/2022 text/html ROS as noted in the HPI 37 yo female comes in for follow up in management of PCOS, hypothyroidism, PCOS and found to have elevated liver enzyme. last seen/telemedicine visit in Jan at that time we restarted ozempic as she did not tolerate metformin well. we continued synthroid 100 mcg daily She has good energy and focus overall. She is on medication for alopecia through dermatology and no longer taking spironolactone. She is tolerating ozempic well and feels it has helped with her weight loss and glucose control-a1c of 5.3%. labs from 08/13/22:dexa 326 ug/mg with cortisol of 1.0 ug/mL normal DST labs from 06/18/22:a1c 5.3%TSH of 3.65 uIU/mlFT4 of 1.3 ng/dLinsulin 42.8 uU/mlFT3 of 3.8 pg/MLtestosterone 38 ng/dLglucose 78 mg/dLCr normalalt 39 U/L Antonia Dumas MD [address], [address], [place], [address], [employer] 09/10/2022 19:26:51 01/14/2023 text/html ROS as noted in the HPI 37 yo female comes in for follow up in management of hypothyroidism, prediabetes (A1C of 5.2%) last seen in August at that time we continued ozempic 1 mg once weekly and recommended bartolo-inositol/berberin e for insulin resistance. we continued synthroid 100 mcg daily. liver u/s from 12/15:heterogeneous concerning for fatty liver disease She was recently dx with fatty liver disease. She is able to go to [facility] in Jan to see hepatology. She stopped olumiant (for alopecia) as this can cause liver enzyme elevation. labs from 12/05/22:a1c of 5.2%TSH of 2.04 uIU/mlFT4 of 1.5 ng/dLFT3 of 3.6 pg/mlB12 239 pg/mLfolate 10.8 ng/mLinsulin 39 uIU/mlLKM/LESA/elicia negativeglucose 83 mg/dLLFT highCr normalhepatitis nonreactiveiron sat 24% Antonia Dumas MD [address], [address], [place], [address], [employer] 01/14/2023 20:25:29 OBGyn Episode No OBEpisode recorded.
--- OUTSIDE RECORDS SUMMARY | 2025-05-17 09:50 | XMS_ITS | Clinical Summary ---
Author Organization [facility] Address [address] [place] [address] Care Team Providers Care In Process Inspector Name Role Phone Shellie Blanco MD Primary Care Provider [phone] Allergies Active Allergy Reactions Criticality Noted Date Comments Azithromycin GI Upset,Other (see comment) High 04/24 Stomach cramps Medications ALPRAZolam (XANAX) 0.5 MG tablet Active levothyroxine (SYNTHROID) 100 MCG tablet Take 1 tablet every day by oral route in the morning for 90 days. 01/15/20 23 Active metFORMIN ER (GLUCOPHAGE-XR ) 500 MG 24 hr tablet Take 1 tablet every day by oral route at dinner for 90 days. Active LITFULO 50 MG Cap Active rosuvastatin (CRESTOR) 20 MG tablet Take 1 tablet (20 mg total) by mouth nightly at bedtime. Active OZEMPIC 1 mg/dose injection (PEN) Inject 1 mg every week by subcutaneous route at dinner for 90 days. Active venlafaxine XR (EFFEXOR-XR) 75 MG 24 hr capsule Active EPINEPHrine 0.3 MG/0.3ML injection Inject 0.3 mLs (0.3 mg total) into the muscle as needed for Anaphylaxis. 2 each 02/28/20 23 Active spironolactone (ALDACTONE) 100 MG tablet TAKE 1 TABLET (100 MG) IN MORNING AND 1 TABLET IN THE EVENING Active pregabalin (LYRICA) 100 MG capsule 02/04/20 25 Active fluticasone propionate (FLONASE) 50 MCG/ACT nasal spray Active eletriptan (RELPAX) 40 MG tablet Active ezetimibe (ZETIA) 10 MG tablet Take 1 tablet (10 mg total) by mouth daily. Active montelukast (SINGULAIR) 10 MG tablet Take 1 tablet (10 mg total) by mouth nightly at bedtime. Active levonorgestrel (MIRENA, 52 MG,) 20 MCG/DAY IUD 1 Intra Uterine Device by Intrauterine route once. Active Azelastine HCl 0.15 % Solution 025 Discontinued Encounters Date Type Department Care Team Description 05/06/2025 2:10 PM COMMERCIAL ASSISTANT Anesthesia Event [facility] End[place] [address] Dominik Suarez MD 05/06/2025 2:00 PM COMMERCIAL ASSISTANT - 05/06/2025 2:30 PM COMMERCIAL ASSISTANT Surgery [facility] [place]o/[place] [address] Maty Nicolas MD COLONOSCOPY- NEGATIVE 05/06/2025 12:46 PM COMMERCIAL ASSISTANT - 05/06/2025 3:23 PM COMMERCIAL ASSISTANT Hospital Encounter [facility] [place] [address] Maty Nicolas MD Discharge Disposition: Home or Self Care (Routine Discharge) 05/06/2025 Travel from Last 3 Months Social History Tobacco Use Types Packs/Day Years Used Date Smoking Tobacco: Never Smokeless Tobacco: Never Tobacco Cessation:Counseling Given: Not Answered Alcohol Use Standard Drinks/Week Comments Never 0 (1 standard drink = 0.6 oz pur e alcohol) Comments No Sex and Gender Information Value Date Recorded Sex Assigned at Female 05/06/2025 12:43 PM COMMERCIAL ASSISTANT Legal Sex Female 8:33 PM CDT Gender Identity Not on file Sexual Orientation Not on file Last Filed Vital Signs Vital Sign Reading Time Taken Comments Blood Pressure 114/77 05/06/2025 3:01 PM COMMERCIAL ASSISTANT Pulse 76 05/06/2025 3:02 PM COMMERCIAL ASSISTANT Temperature 36.2 C (97.2 F) 05/06/2025 2:43 PM COMMERCIAL ASSISTANT Respiratory Rate 14 05/06/2025 3:02 PM COMMERCIAL ASSISTANT Oxygen Saturation 99% 05/06/2025 3:05 PM COMMERCIAL ASSISTANT Inhaled Oxygen Concentration - - Weight 97.1 kg (214 lb) 04/26/2025 1:43 PM COMMERCIAL ASSISTANT Height 162.6 cm (5' 4) 04/26/2025 1:43 PM COMMERCIAL ASSISTANT Body Mass Index 36.73 04/26/2025 1:43 PM COMMERCIAL ASSISTANT Plan of Treatment Health Maintenance Due Date Last Done Comments Cervical Cancer Screening Pa p Smear (Age 30 to 64) Every 3 Years 1986 Annual Physical 1989 Hepatitis C 2004 Hepatitis B Vaccines (1 of 3 - 19+ 3-dose series) 2005 HPV Vaccines (1 - 3-dose SCD M series) 2013 Cervical Cancer Screening Pa p with HPV Testing (Age 30 to 64) Every 5 Years 2016 Cervical Cancer Screening wi th HPV 2016 DTaP, Tdap and Td Vaccines ( 2 - Td or Tdap) 05/26/2023 05/26/2013 COVID-19 Vaccine (4 - 2024-2 6 season) 2025 05/30/2021, 08/13/2020, 07/22/2020 Influenza Adult (#1) 2025 Hepatitis A Vaccines Aged Out No long er eligible based on patient's age to complete this topic Meningococcal B Vaccine Aged Out No l onger eligible based on patient's age to complete this topic Meningococcal Vaccine Aged Out No mackenzie martin eligible based on patient's age to complete this topic Pneumococcal Vaccine: Pediatrics (0 to 5 Years) and At-Risk Patients (6 to 49 Years) Aged Out No longer eligible b ased on patient's age to complete this topic RSV Immunizations Under 20 Months Aged Out No longer eligible b ased on patient's age to complete this topic Procedures Procedure Name Priority Date/Time Associated Diagnosis Comments COLONOSCOPY 05/06/2025 2:09 PM COMMERCIAL ASSISTANT Rectal bleeding POCT URINE (BACK OFFICE) Routine 05/06/2025 1:30 PM COMMERCIAL ASSISTANT COLONOSCOPY Routine 05/06/2025 12:56 PM COMMERCIAL ASSISTANT from Last 3 Months Results * POCT urine (05/06/2025 1:30 PM COMMERCIAL ASSISTANT) URINE HCG TEST NEGATIVE NEGATIVE [facility] Comment:lot [id number] Internal Control: [facility]ID [facility]ID [facility] Comment:exp. 10/19/26 URINE URINE SPECIMEN OBTAINED BY CLEAN CATCH PROCEDURE / Unknown 05/06/2025 1:30 PM COMMERCIAL ASSISTANT us Maty Nicolas MD POINT OF CARE TEST ORDERABLES Fi nal Result [facility] [address] [place] [address], [place] [phone] from Last 3 Months Insurance [facility] Care Teams In Process Inspector Relationship Specialty Start Date End Date Shellie Blanco MD [address] [place] [address] PCP - General FAMILY PRACTICE 02/27/23
--- OUTSIDE RECORDS SUMMARY | 2025-05-17 09:50 | XMS_ITS | Clinical Summary ---
Author Organization [facility] Address [address] [place] [address] Phone Care Team Providers Care Solar Installation Supervisor Name Role Phone Kim Pretty MD Primary [...] on file Legal Sex Female 8:03 AM HOOK AND EYE ATTACHER Gender Identity Not on file Sexual Orientation Not on file Last Filed Vital Signs Vital Sign Reading Time Taken Comments Blood Pressure 118/84 04/24/2020 8:40 AM HOOK AND EYE ATTACHER Pulse 80 04/24/2020 8:40 AM HOOK AND EYE ATTACHER Temperature 36.4 C (97.6 F) 04/24/2020 8:40 AM HOOK AND EYE ATTACHER Respiratory Rate 20 04/24/2020 8:40 AM HOOK AND EYE ATTACHER Oxygen Saturation 98% 04/24/2020 8:40 AM HOOK AND EYE ATTACHER Inhaled Oxygen Concentration - - Weight - - Height - - Body Mass Index - - Plan of Treatment Health Maintenance Due Date Last Done Comments Hepatitis C Virus (HCV) Screening 1986 Varicella Immunization (1 of 2 - 13+ 2-dose series) 1999 Hepatitis B Immunization (1 of 3 - 19+ 3-dose series) 2005 Pap Smear 2007 Cervical Cancer Screening (CCS) 2016 HPV/Cotest 2016 Influenza Immunization (#1) 2025 SARS-COV-2 Immunization ( season) 2025 05/30/2021, 08/13/2020, 07/22/2020 Respiratory Syncytial Virus (RSV) Immunization (Adult) (1 - 1-dose 75+ series) 2061 DTaP/Tdap/Td Immunization Discontinued 05/26/2013 TdaP Immunization Completed 05/26/2013 Human Papillomavirus (HPV) Immunization (No Doses Required) Completed Meningococcal Immunization (ACWY) Aged Out No longer eligible based on patient's age to complete this topic Pneumococcal Immunization Combined Aged Out No longer eligible based on patient's age to complete this topic Rotavirus Immunization Aged Out No lo nger eligible based on patient's age to complete this topic Care Teams Solar Installation Supervisor Relationship Specialty Start Date End Date Kim Pretty MD [address] [address] PCP - General Family Medicine 04/24/20
--- NOTE | 2025-05-17 09:56 | ECHO_ITS ---
Patient Info Name: Lorrie Strong Age: 39 years : 1985 Gender: Female Ht: 64 in Wt: 211 lbs BSA: 2.12 m2 HR: 81 bpm BP: 141 / 106 mmHg Heart Rhythm: Sinus Rhythm Technical Quality: Fair Exam Date: 05/17/2025 9:59 AM Patient Status: O Admit Date: 05/17/2025 Exam Type: CA echo doppler color flow Complete two-dimensional, color flow and Doppler transthoracic echocardiogram is performed. [employer] Project Manager: Lilian Galindo Attending Provider: Wali Paredes Summary 1. Complete two-dimensional, color flow and Doppler transthoracic echocardiogram is performed. 2. Left ventricular chamber dimension is normal. 3. Left ventricular systolic function is normal, estimated at 60-65. 4. The left ventricular diastolic function is normal. 5. E/e' 8 is minimally elevated. 6. Left atrial chamber dimension is mildly enlarged. 7. There is trace mitral valve regurgitation. 8. There is mild tricuspid valve regurgitation. 9. No pulmonary hypertension, estimated pulmonary arterial systolic pressure is 25 mmHg. Left Ventricle E/e' 8 is minimally elevated. Left ventricular chamber dimension is normal. Left ventricular systolic function is normal, estimated at 60-65. The left ventricular diastolic function is normal. Right Ventricle Right ventricular chamber dimension is normal. Right ventricular systolic function is normal and with normal TAPSE 2.0 cm. Left Atria Left atrial chamber dimension is mildly enlarged. Right Atria Right atrial chamber dimension is normal. Aortic Valve The aortic valve is probable trileaflet. There is no aortic valve stenosis. There is no aortic valve regurgitation. Pulmonic Valve There is no pulmonic regurgitation. Mitral Valve There is no mitral valve stenosis. There is trace mitral valve regurgitation. Tricuspid Valve There is mild tricuspid valve regurgitation. No pulmonary hypertension, estimated pulmonary arterial systolic pressure is 25 mmHg. Pericardium/Pleural There is no pericardial effusion. Inferior Vena Cava Normal inferior vena cava with >50% collapse upon inspiration consistent with normal right atrial pressure, 5 mmHg. Aorta The aortic root size at the sinus of Valsalva is normal. Left Ventricular Outflow Tract Name Value Normal LVOT 2D LVOT Diameter 2.0 cm LVOT Doppler LVOT Peak Velocity 82 cm/s LVOT Peak Gradient 3 mmHg LVOT Mean Gradient 1 mmHg LVOT VTI 16 cm LVOT VTI/AV VTI Ratio 0.7 LVOT Stroke Volume 54 ml LVOT CO 4.2 l/min LVOT CI 2.0 l/min/m2 Pulmonic Valve Name Value Normal RVOT Doppler RVOT Peak Velocity 71 cm/s RVOT Peak Gradient 2 mmHg PV Doppler PV Peak Velocity 87 cm/s PV Peak Gradient 3 mmHg Mitral Valve Name Value Normal MV Diastolic Function MV E Peak Velocity 87 cm/s MV A Peak Velocity 62 cm/s MV E/A 1.4 MV Decel Time (PW) 193 ms MV Annular TDI MV E/e' (Septal) 10.0 MV E/e' (Lateral) 8.0 MV E/e' (Average) 9.0 Tricuspid Valve Name Value Normal TV Regurgitation Doppler TR Peak Velocity 225 cm/s TR Peak Gradient 20 mmHg Estimated PAP/RSVP RA Pressure 5 mmHg <=5 PA Systolic Pressure 25 mmHg <36 RV Systolic Pressure 25 mmHg <36 TV Annular TDI TV Lateral Karyn s' Velocity 10.8 cm/s >=9.5 Aorta Name Value Normal Ascending Aorta Ao Root Diameter (MM) 2.7 cm Ao Root Diam Index (MM) 1.3 cm/m2 Aortic Valve Name Value Normal AV Doppler AV Peak Velocity 115 cm/s AV Peak Gradient 5 mmHg AV Mean Gradient 3 mmHg AV VTI 22 cm AV Area (Cont Eq VTI) 2.5 cm2 >=3.0 AV Area (Cont Eq Vicente) 2.3 cm2 AV DI (Vicente) 0.71 AV Regurgitation 2D LVOT Area 3.3 cm2 Ventricles Name Value Normal LV Dimensions 2D/MM IVS Diastolic Thickness (2D) 0.8 cm 0.6-1.0 LVID Diastole (2D) 4.7 cm 3.8-5.2 LVIW Diastolic Thickness (2D) 0.8 cm 0.6-0.9 LVID Systole (2D) 3.2 cm 2.2-3.5 LVOT Diameter 2.0 cm LV Mass (2D Cubed) 115.59 g 67.00-162.00 LV Mass Index (2D Cubed) 54 g/m2 43-95 Relative Wall Thickness (2D) 0.33 <=0.42 LV Fractional Shortening/Ejection Fraction 2D/MM LV Fractional Shortening (2D) 32 % 27-45 LV EF (2D Teichholz) 60 % LV Diastolic Volume (4C MOD) 52 ml LV EF (4C MOD) 72 % LV Diastolic Volume (2C MOD) 47 ml LV EF (2C MOD) 75 % LV Diastolic Volume (BP MOD) 50 ml 46-106 LV Diastolic Volume Index (BP MOD) 24 ml/m2 29-61 LV Systolic Volume (BP MOD) 13 ml 14-42 LV Systolic Volume Index (BP MOD) 6 ml/m2 8-24 LV EF (BP MOD) 73 % 54-74 LV Diastolic Length (4C) 7.2 cm LV Systolic Length (4C) 5.3 cm LV Stroke Volume (4C MOD) 38 ml Atria Name Value Normal LA Dimensions LA Dimension (MM) 4.0 cm 2.7-3.8 LA Volume (4C A-L) 58 ml LA Volume (BP A-L) 58 ml RA Dimensions RA Area (4C) 15.6 cm2 <=18.0 Report Signatures
== END 2025-05-17 09:28 | disposition home or self-care (01) ==
LOC: ANHCARD 09:29
PROVIDERS: PCP Family Medicine
DX: R06.02 Shortness of breath (principal); I36.1 Nonrheumatic tricuspid (valve) insufficiency
CPT/HCPCS: 93306